=== PATIENT | male | born 1940 | race Caucasian/White ===

== ENCOUNTER 2021-08-14 12:43 | Observation (INO) | payer OTHER ==
--- OUTSIDE RECORDS SUMMARY | 2021-08-14 12:48 | XMS REPORT | Continuity of Care Document ---
:1940 Author Organization [facility] t Address [address] [place] [address] [address] [place] [address] Care Team Providers Name Role Phone Zac Jeffries DO Primary Care Physician Radha Attending Clinician Unavailable HAROLDO NOLASCO Attending Clinician Unavailable Samantha Dyer MD Attending Clinician DHARA Attending Clinician Unavailable MICHAEL Attending Clinician Unavailable Viridiana RUBY Attending Clinician Unavailable Samantha DYER Attending Clinician Unavailable Cholo CASTRO Attending Clinician Unavailable Viridiana Ruby DO Attending Clinician LISHA Attending Clinician Unavailable Andrei Attending Clinician Unavailable LAB90 Attending Clinician Unavailable LAB47 Attending Clinician Unavailable FAROOQ Attending Clinician Unavailable TERI Attending Clinician Unavailable Viridiana JONES Attending Clinician Unavailable Franklin CLARKE Attending Clinician JUAN Attending Clinician Unavailable SHARIF NULL Attending Clinician Unavailable Savana BURNHAM Attending Clinician Unavailable AZEB Attending Clinician Unavailable LUKE Attending Clinician Unavailable Shabbir Rock Admitting Clinician Unavailable Andrei Admitting Clinician Unavailable Radha Admitting Clinician Unavailable SHARIF NULL Admitting Clinician Unavailable Payers Payer Name Policy Type Policy Number Effective Date Ex[facility] Date [id number] 2021 00:00:00 MEDICARE PART A \T\ [id number] 2004 B 00:00:00 [facility] [id number] 2015 MEDICARE SUPPLEMENT 00:00:00 Problems Condition Condition Condition Status Onset Resolution Last Treating Co mments Source Name Details Category Date Date Treatment Clinician Date Encounter Encounter Disease Active Be welchy for for 03-26 Seybold long-term long-term 00:00: (current) (current) 00 use of use of insulin insulin Severe Severe Disease Active Radha obesity obesity 03-01 Seybold (BMI (BMI 00:00: 35.0-39.9) 35.0-39.9) 00 with with comorbidit comorbidit y y Controlled Controlled Disease Active K josé manuely type 2 type 2 02-26 Seybold diabetes diabetes 00:00: mellitus mellitus 00 with with diabetic diabetic nephropath nephropath y, with y, with long-term long-term current current use of use of insulin insulin History of History of Disease Active Genevieve josé manuelpetey fracture fracture 02-26 Seybol d of right of right 00:00: hip hip 00 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 02-26 Se ybold athy athy 00:00: associated associated 00 with type with type 2 diabetes 2 diabetes mellitus mellitus Intermitte Intermitte Disease Active K josé manuely nt atrial nt atrial 01-29 Seyb old fibrillati fibrillati 00:00: on (HCC) - on (HCC) - 00 Unchanged Unchanged COVID-19 COVID-19 Disease Active Metho di virus virus 8-04 st detected detected 00:00: Hospit a 00 l Pill Pill Disease Active Methodi esophagiti esophagiti 7 st s s 00:00: Hospita 00 l History of History of Disease Active M ethodi alcohol alcohol 01-17 st use use 00:00: Hospita 00 l History of History of Disease Active M ethodi colonic colonic 7 st polyps polyps 00:00: Hospita 00 l Pancreatic Pancreatic Disease Active Overview : Radha mass mass Miguelito Welchybold g of this note might be different from the original. Patient reports 2 masses in tail and head since 2007 Pacemaker Pacemaker Disease Active Overview: Radha Formattin Seybold g of this note might be different from the original. 2004 original 2014 new pacemaker On On Disease Active Radha continuous continuous Se ybold oral oral anticoagul anticoagul ation ation CKD CKD Disease Active Radha (chronic (chronic Seybol d kidney kidney disease) disease) CAD CAD Disease Active Overview: Radha (coronary (coronary Formattin S eybold artery artery g of this disease) disease) note might be different from the original. CABG x 3 at age 65 Bilateral Bilateral Disease Active Be sey kidney kidney Seybold masses masses Subtrochan Subtrochan Problem Active U nivers teric teric [place] Allergies, Adverse Reactions, Alerts Allergy Allergy Status Severity Reaction(s) Onset Inactive Treating Comm ents Source Name Type Date Date Clinician Penicill DA Active U [facility] ins 9-15 Clear 00:00: Hernández 00 [facility] cortison DA Active U [facility] e 915 Clear 00:00: Hernández [facility] Penicill DA Active U RASH [facility] ins 15 Clear 00:00: Hernández 00 [facility] cortison DA Active U RASH 0 [facility] e 9-15 Clear 00:00: Hernández [facility] Penicill DA Active U RASH 0 [facility] ins 9-13 Clear 00:00: Hernández 00 [facility] cortison DA Active U RASH 0 [facility] e 9-13 Clear 00:00: Hernández 00 [facility] Penicill DA Active U 0 [facility] ins 9-13 Clear 00:00: Hernández [facility] cortison DA Active U HCA e 9-13 Clear 00:00: Hernández 00 [facility] Cortison Propensi Active Rash Method i e ty to 7-21 st adverse 00:00: Hospita reaction 00 l s to drug Penicill Propensi Active Shortness Of Methodi ins ty to Breath 7-21 st adverse 00:00: Hospita reaction 00 l s to drug Hydrocor Propensi Active Swelling Germania ey tisone ty to 8-30 Seybold adverse 00:00: reaction 00 s No Known DA Active U 2014-06 [facility] Allergie 0-24 Clear s 00:00: Hernández 00 [facility] No Known DA Active U 2014-06 [facility] Allergie 0-24 Clear s 00:00: Hernández [facility] Penicill Propensi Active Rash 2010-06 Patient Harmony angelo in G ty to 0-19 states it Seybold Proc & adverse 00:00: was when Benzathi reaction 00 he was ne s young. Cortison Propensi Active Swelling Germania ey e ty to 11-24 Seybold adverse 00:00: reaction 00 s Penicill Propensi Active Shortness of Radha ins ty to Breath 11-24 Seybold adverse 00:00: reaction 00 s CORT[place] DRUG Active Swelling Univer s E INGREDI 11-24 ity of 00:00: [address] PENICILL DRUG Active Rash Univers IN G INGREDI 11-24 ity of 00:00: [address] Family History Family Member Diagnosis Comments Start Date Stop Date Source Natural brother Prostate cancer [facility] Natural sister Breast cancer [facility] Social History Social Habit Start Date Stop Date Quantity Comments Source History of Cigarette Smoker Radha lewis tobacco use Exposure to Not sure Radha hopper SARS-CoV-2 (event) Tobacco use and 2021-01-29 2021-01-29 Smokeless tobacco Ke akuaey Seybold exposure 00:00:00 00:00:00 non-user Alcohol intake 2020-06-16 2020-06-16 Ex-drinker Yarsani 00:00:00 00:00:00 (finding) Hospital Sex Assigned At [birth year] Radha ybjenna 00:00:00 00:00:00 Smoking Status Start Date Stop Date Source Ex-smoker 2020-01-18 00:00:00 2020-01-18 00:00:00 [facility] Medications Ordered Filled Start Stop Current Ordering Indication Dosage Frequency Signature Comments Components Source Medication Medication Date Date Medication? Clinician (SIG) Name Name Cholecalcif 2020-06 Yes Take by Be baker chata 2-13 mouth Seybold (Vitamin 10:53: D3) 25 MCG 19 oral Tablet Ascorbic 2020-06 Yes Take by Radha Acid 2-13 mouth Seybold (Vitamin C) 10:53: 500 MG oral 19 Capsule Zinc 50 MG 2020-06 Yes Take by Germania ey oral Tablet 2-13 mouth Seybold 10:53: 19 Magnesium 2020-06 Yes Take by Harmony y 500 MG oral 2-13 mouth Seybold Capsule 10:53: 19 Cyanocobala 2020-06 Yes Take by Be baker min 2-13 mouth Seybold (VITAMIN 10:53: B-12 OR) 19 ASPIRIN 81 2020-06 Yes Take by Germania ey OR 2-13 mouth Seybold 10:53: 19 Insulin 2020-06 Yes Inject Radha Glargine 2-13 into the Seybold 100 UNIT/ML 10:53: skin subcutaneou 19 s Solution Alendronate 2020-06 Yes [id number] 70mg Take 1 Radha Sodium 70 0-24 tablet (70 Seyb old MG oral 00:00: mg total) Tablet 00 by mouth every 7 days AMYLASE-LIP 2020-06- No Take by Nick champagne ASE-PROTEAS 0-18 10-18 mouth Seybol d E OR 14:15: 00:00 53 :00 Zinc 2020-06- No 50mg Take 50 mg Radha Gluconate 0-18 10-18 by mouth 2 Sey bold 50 MG oral 14:15: 00:00 times Tablet 12 :00 daily Metoprolol 2020-06- No 50mg Take 50 mg Radha Tartrate 50 0-18 10-18 by mouth 2 S eybold MG oral 14:15: 00:00 times Tablet 10 :00 daily WARFARIN 2020-06- No Take by Harmony y SODIUM OR 0-18 10-18 mouth Seybold 14:15: 00:00 03 :00 SPIRONOLACT 2020-06- No Take by Nick champagne ONE OR 0-18 10-18 mouth Seybold 14:14: 00:00 44 :00 Solifenacin 2020-06- No Take by Nick champagne Succinate 0-18 10-18 mouth Seybold 10 MG oral 14:14: 00:00 Tablet 38 :00 PRAVASTATIN 2020-06- No Take by Nick champagne SODIUM OR 0-18 10-18 mouth Seybold 14:14: 00:00 28 :00 Potassium 2020-06- No by other Be baker (POTASSIMIN 0-18 10-18 route Seybol d OR) 14:14: 00:00 16 :00 Memantine 2020-06- No 5mg Take 5 mg Nick champagne HCl 5 MG 0-18 10-18 by mouth 2 Seyb old oral Tablet 14:13: 00:00 times 55 :00 daily Magnesium 2020-06- No 1{tbl} Take 1 Be sey 250 MG oral 0-18 10-18 tablet by Se ybold Tablet 14:13: 00:00 mouth 39 :00 daily Lisinopril 2020-06- No Take by Be sey 20 MG oral 0-18 10-18 mouth Seybold Tablet 14:13: 00:00 29 :00 linaCLOtide 2020-06- No as needed Radha 290 MCG 0-18 10-18 Seybold oral 14:13: 00:00 Capsule 23 :00 Isosorbide 2020-06- No Take by Be sey Mononitrate 0-18 10-18 mouth Seybol d 10 MG oral 14:13: 00:00 Tablet 13 :00 HYDROMORPHO 2020-06- No Take by Nick champagne NE HCL OR 0-18 10-18 mouth Seybold 14:13: 00:00 04 :00 GLIMEPIRIDE 2020-06- No Take by Nick fatimaey OR 0-18 10-18 mouth Seybold 14:12: 00:00 45 :00 Glimepiride 2020-06- No Take by Nick fatimaey 2 MG oral 0-18 10-18 mouth Seybold Tablet 14:12: 00:00 39 :00 Furosemide 2020-06- No 20mg Q24H Take 20 mg Radha 20 MG oral 0-18 10-18 by mouth Seyb old Tablet 14:12: 00:00 daily as 23 :00 needed Doxycycline 2020-06- No 100mg Take 100 Radha Hyclate 50 0-18 10-18 mg by Seybold MG oral 14:12: 00:00 mouth 2 Tablet 16 :00 times daily Doxazosin 2020-06- No Take by Germania ey Mesylate 8 0-18 10-18 mouth Seybold MG oral 14:12: 00:00 Tablet 06 :00 Docusate 2020-06- No 250mg Take 250 Be sey Sodium 0-18 10-18 mg by Seybold (DSS) 100 14:11: 00:00 mouth MG oral 53 :00 daily Capsule Cyanocobala 2020-06- No by Harmony angelo min 1000 0-18 10-18 Parenteral Seyb old MCG/ML 14:11: 00:00 route injection 43 :00 Kit CHLORTHALID 2020-06- No Take by Nick MURILLO OR 0-18 10-18 mouth Seybold 14:11: 00:00 37 :00 CARVEDILOL 2020-06- No Take by Be baker OR 0-18 10-18 mouth Seybold 14:11: 00:00 30 :00 Aspirin 81 2020-06- No 81mg Take 81 mg Radha MG oral 0-18 10-18 by mouth Seybold Tablet 14:11: 00:00 daily Delayed 23 :00 Response Amlodipine 2020-06- No Take by Be baker Besylate 5 0-18 10-18 mouth Seybold MG oral 14:11: 00:00 Tablet 04 :00 Cholecalcif 2020-06 Yes Take by Be baker chata 0-18 mouth Seybold (Vitamin 14:10: D3) 25 MCG 37 oral Tablet Ascorbic 2020-06 Yes Take by Radha Acid 0-18 mouth Seybold (Vitamin C) 14:10: 500 MG oral 37 Capsule Zinc 50 MG 2020-06 Yes Take by Germania ey oral Tablet 0-18 mouth Seybold 14:10: 37 Magnesium 2020-06 Yes Take by Harmony angelo 500 MG oral 0-18 mouth Seybold Capsule 14:10: 37 Cyanocobala 2020-06 Yes Take by Be baker min 0-18 mouth Seybold (VITAMIN 14:10: B-12 OR) 37 ASPIRIN 81 2020-06 Yes Take by Germania ha OR 0-18 mouth Seybold 14:10: 37 Metformin 2020-06 Yes [id number] 500mg Take 1 Radha HCl 500 MG 0-18 tablet Seybold oral Tablet 00:00: (500 mg 00 total) by mouth 2 times daily (with meals) Metformin 2020-06 Yes [id number] 500mg Take 1 Radha HCl 500 MG 0-18 tablet Seybold oral Tablet 00:00: (500 mg 00 total) by mouth 2 times daily (with meals) Oxybutynin 2020-06 Yes 10mg Take 1 Kelse y Chloride 10 0-05 tablet (10 Se ybold MG oral 00:00: mg total) TABLET SR 00 by mouth 24 HR daily Oxybutynin 2020-06 Yes 10mg Take 1 Kelse y Chloride 10 0-05 tablet (10 Se ybold MG oral 00:00: mg total) TABLET SR 00 by mouth 24 HR daily Eliquis 5 Yes [id number] 5mg Take 5 mg Radha MG oral 9-15 by mouth 2 Seybol d Tablet 00:00: times 00 daily Eliquis 5 Yes [id number] 5mg Take 5 mg Radha MG oral 9-15 by mouth 2 Seybol d Tablet 00:00: times 00 daily Insulin Yes Inject Radha Glargine 9-02 into the Seybold 100 UNIT/ML 10:01: skin subcutaneou 53 s Solution Warfarin Yes 6mg Take 1 Radha Sodium 6 MG 9-02 tablet (6 Sey bold oral Tablet 00:00: mg total) 00 by mouth daily Warfarin Yes 6mg Take 1 Radha Sodium 6 MG 9-02 tablet (6 Sey bold oral Tablet 00:00: mg total) 00 by mouth daily Chlorthalid 0 2021- No 25mg Take 1 Be sey one 25 MG 9-02 09-03 tablet (25 Sey bold oral Tablet 00:00: 04:59 mg total) 00 :00 by mouth daily Chlorthalid 0 2021- No 25mg Take 1 Be sey one 25 MG 9-02 09-03 tablet (25 Sey bold oral Tablet 00:00: 04:59 mg total) 00 :00 by mouth daily Insulin Yes [id number] Takes up K elsey Detemir 8-30 to 25 Seybold (Levemir 00:00: units SQ FlexTouch) 00 nightly 100 UNIT/ML subcutaneou s Solution Pen-injecto r Insulin Pen Yes [id number] Takes Radha Needle 31G 8-30 insulin Seybol d X 5 MM does 00:00: once daily not apply 00 Misc B-D Yes Radha ULTRAFINE 8-30 Seybold III SHORT 00:00: PEN 31G X 8 00 MM does not apply Misc Insulin Yes [id number] Takes up K elsey Detemir 8-30 to 25 Seybold (Levemir 00:00: units SQ FlexTouch) 00 nightly 100 UNIT/ML subcutaneou s Solution Pen-injecto r Insulin Pen Yes [id number] Takes Radha Needle 31G 8-30 insulin Seybol d X 5 MM does 00:00: once daily not apply 00 Misc B-D Yes Radha ULTRAFINE 8-30 Seybold III SHORT 00:00: PEN 31G X 8 00 MM does not apply Misc Pravastatin Yes [id number] TAKE 1 Radha Sodium 40 8-04 TABLET(40 Seybo ld MG oral 00:00: MG) BY Tablet 00 MOUTH 1 TIME EACH DAY OneTouch Yes USE Radha Ultra in 01-31 DIRECTED 4 Seybo ld vitro Strip 00:00: TIMES A 00 DAY Pravastatin Yes [id number] TAKE 1 Radha Sodium 40 8-04 TABLET(40 Seybo ld MG oral 00:00: MG) BY Tablet 00 MOUTH 1 TIME EACH DAY OneTouch Yes USE Radha Ultra in 01-31 DIRECTED 4 Seybo ld vitro Strip 00:00: TIMES A 00 DAY Levothyroxi 2021- No [id number] 25ug Take 1 Radha ne Sodium 8- 08-05 tablet (25 Sey bold 25 MCG oral 00:00: 04:59 mcg total) Tablet 00 :00 by mouth daily Levothyroxi 2021- No [id number] 25ug Take 1 Radha ne Sodium 8-04 08-05 tablet (25 Sey bold 25 MCG oral 00:00: 04:59 mcg total) Tablet 00 :00 by mouth daily Metoprolol Yes TAKE 1 Kelse y Tartrate 25 6-09 TABLET(25 Sey bold MG oral 00:00: MG) BY Tablet 00 MOUTH TWICE DAILY Metoprolol Yes TAKE 1 Kelse y Tartrate 25 6-09 TABLET(25 Sey bold MG oral 00:00: MG) BY Tablet 00 MOUTH TWICE DAILY Hydromorpho Yes TAKE 1 Germania ey ne HCl 4 MG 5-26 TABLET BY Sey bold oral Tablet 00:00: MOUTH 00 TWICE DAILY IF NEEDED FOR MODERATE PAIN Hydromorpho Yes TAKE 1 Germania ey ne HCl 4 MG 5-26 TABLET BY Sey bold oral Tablet 00:00: MOUTH 00 TWICE DAILY IF NEEDED FOR MODERATE PAIN Hydromorpho 2020- No 4mg Q.5D Take 4 mg Radha ne HCl 4 MG 5-25 10-18 by mouth 2 S eybold oral Tablet 00:00: 00:00 times 00 :00 daily as needed Amitriptyli 2020- No Take 1-2 K elsey ne HCl 25 3- 10-18 tabs by Seybol d MG oral 00:00: 00:00 mouth Tablet 00 :00 nightly as needed for insomnia Gabapentin 2020- No 600mg Take 600 K elsey 300 MG oral 2- 10-18 mg by Seybol d Capsule 00:00: 00:00 mouth 2 00 :00 times daily pantoprazol 2019-06 Yes TAKE 1 Meth mariela e 2-30 TABLET(40 st (PROTONIX) 00:00: MG) BY Hospi ta 40 MG EC 00 MOUTH l tablet TWICE DAILY metFORMIN 2019-06 Yes 1000mg Q.5D Take 1,000 Methodi (GLUCOPHAGE 2-[address] ) 500 mg 15:18: mouth 2 Hospit a tablet 01 (two) l times a day with meals. warfarin 2019-06 Yes 2mg Take 2 mg Meth mariela (COUMADIN) 2-[address] 2 MG tablet 15:18: Hospit a 01 l warfarin 2019-06 Yes 6mg QD Take 6 mg Meth mariela (COUMADIN) 2-[address] 6 MG tablet 15:18: daily. Hosp juancarlos 01 l aspirin 2019-06 Yes 81mg QD Take 81 mg Meth mariela (ECOTRIN) 2-[address] 81 MG 15:18: daily. Hospita enteric 01 l coated tablet magnesium 2019-06 Yes 500mg QD Take 500 Met hodi gluconate 2-[address] (MAGONATE) 15:18: mouth Hospit a 500 mg 01 daily. l tablet tablet zinc 2019-06 Yes 220mg QD Take 220 Methodi sulfate 2-[address] (Zinc-220) 15:18: mouth Hospit a 220 (50) mg 01 daily. l capsule ascorbic 2019-06 Yes 500mg QD Take 500 Meth mariela acid, 2-[address] vitamin C, 15:18: mouth Hospit a (VITAMIN C) 01 daily. l 500 MG tablet memantine 2019-06 Yes 5mg Q.5D Take 5 mg Met hodi (NAMENDA) 5 2-[address] MG tablet 15:18: (two) Hospita 01 times a l day. docusate 2020- Yes 250mg QD Take 250 Meth mariela sodium 2-[address] (COLACE) 15:18: mouth Hospita 250 MG 01 daily. l capsule cholecalcif 2019-06 Yes 2000U QD Take 2,000 Methodi chata, 2-[address] vitamin D3, 15:18: mouth Hospi ta 50 mcg 01 daily. l (2,000 unit) capsule capsule metoprolol 2019-06 Yes 50mg Q.5D Take 50 mg M ethodi tartrate 2-[address] (LOPRESSOR) 15:18: (two) Hospi ta 50 mg 01 times a l tablet day. furosemide 2019-06 Yes 40mg Q.5D Take 40 mg M ethodi (LASIX) 40 2-[address] mg tablet 15:18: (two) Hospita 01 times a l day. cyanocobala 2020 Yes 1000ug QD Take 1,000 Methodi min 2-[address] (VITAMIN 15:18: mouth Hospita B-12) 1000 01 daily. l MCG tablet gabapentin 2019-06 Yes 600mg Q.5D Take 600 Me thodi (NEURONTIN) 2-[address] 600 mg 15:18: mouth 2 Hospita tablet 01 (two) l times a day as needed (pain or anxiety). insulin 2019-06 Yes 22U QD Inject 22 Metho di detemir 2-[address] U-100 15:18: under the Hospita (LEVEMIR) 01 skin l 100 unit/mL daily. injection Insulin Pen 2019- Yes USE Germania ey Needle (B-D 8-14 DIRECTED Seyb old ULTRAFINE 00:00: THREE III SHORT 00 TIMES PEN) 31G X DAILY. 8 MM does not apply Misc Insulin Pen 2020-0 Yes USE Germania ey Needle (B-D 8-14 DIRECTED Seyb old ULTRAFINE 00:00: THREE III SHORT 00 TIMES PEN) 31G X DAILY. 8 MM does not apply Misc hydromorPHO Yes 4mg Q.5D Take 4 mg M ethodi NE 4-[address] (DILAUDID) 00:00: (two) Hospit a 4 MG tablet 00 times a l day as needed. levothyroxi 2020- No 25ug Take 25 Me thodi ne 4-14 04-[address] (SYNTHROID) 00:00: 04:59 mouth. Hos flynn 25 mcg 00 :00 l tablet chlorthalid 2020- No 25mg Take 25 mg Methodi one 4-14 04-[address] (HYGROTEN) 00:00: 04:59 Hospit a 25 MG 00 :00 l tablet oxybutynin 2020- No 10mg Take 10 mg Methodi XL 9 04-[address] (DITROPAN-X 00:00: 04:59 Hospi ta L) 10 MG 24 00 :00 l hr tablet pravastatin Yes TAKE 1 Meth mariela (PRAVACHOL) 02-[address] 40 mg 00:00: MOUTH Hospita tablet 00 EVERY DAY l Immunizations Ordered Immunization Filled Immunization Date Status Commen ts Source Name Name Influenza Virus 2021-03-01 Completed Radha Welch ybold Vaccine, 00:00:00 Quadrivalent, High Dose, Age 65 And Up Influenza Virus 2021-03-01 Completed Radha Welch ybold Vaccine, 00:00:00 Quadrivalent, High Dose, Age 65 And Up Covid-19 Vaccine 2020-09-24 Completed Radha habold (Moderna), Mrna-lnp, 00:00:00 Patrice Protein, Pf, 100 Mcg/0.5ml,IM Covid-19 Vaccine 2020-09-24 Completed Radha Singh eybold (Moderna), Mrna-lnp, 00:00:00 Patrice Protein, Pf, 100 Mcg/0.5ml,IM Covid-19 Vaccine 2020-08-27 Completed Radha Singh eybold (Moderna), Mrna-lnp, 00:00:00 Patrice Protein, Pf, 100 Mcg/0.5ml,IM Covid-19 Vaccine 2020-08-27 Completed Radha Singh eybold (Moderna), Mrna-lnp, 00:00:00 Patrice Protein, Pf, 100 Mcg/0.5ml,IM Tdap- (Boostrix, 2017-02-26 Completed Radha habold Adacel) 00:00:00 Tdap- (Boostrix, 2017-02-26 Completed Radha Singh eybold Adacel) 00:00:00 Vital Signs Vital Name Observation Time Observation Value Comments Source Systolic blood pressure 2021-04-16 19:04:00 118 mm[Hg] Radha Seybold Diastolic blood 2021-04-16 19:04:00 62 mm[Hg] Kelse y Seybold pressure Heart rate 2021-04-16 19:04:00 72 /min Radha S eybold Respiratory rate 2021-04-16 19:04:00 18 /min Germania ey Seybold Body height 2021-04-16 19:04:00 162.6 cm Radha S lelandbold Body weight 2021-04-16 19:04:00 99.338 kg Radha S eybold BMI 2021-04-16 19:04:00 37.59 kg/m2 Radha S eybold Systolic blood pressure 2021-04-16 19:04:00 118 mm[Hg] Radha Seybold Diastolic blood 2021-04-16 19:04:00 62 mm[Hg] Kelse y Seybold pressure Heart rate 2021-04-16 19:04:00 72 /min Radha habold Respiratory rate 2021-04-16 19:04:00 18 /min Germania ey Seybold Body height 2021-04-16 19:04:00 162.6 cm Radha S eybold Body weight 2021-04-16 19:04:00 99.338 kg Radha S eybold BMI 2021-04-16 19:04:00 37.59 kg/m2 Radha S lelandbold Procedures Procedure Date / Time Performed Performing Clinician Sour e REAGENT STRIP/BLOOD 2021-04-16 19:17:00 Clara Ruby Radha Singh eybold GLUCOSE [id number] 2021-03-14 00:00:00 RASSA [facility] [id number] 2021-03-14 00:00:00 JOSE ALFREDOA JANES [facility] [id number] 2021-03-14 00:00:00 PHIQASIM MARRERO [facility] [U] XRAY FEMUR 2 [facility] 2019-07-14 00:00:00 [facility] [place] RIGHT [id number] [facility]icians [U] XRAY FEMUR 2 [facility] 2019-06-14 00:00:00 [facility] [place] RIGHT [id number] Physicians [U] XRAY FEMUR 2 [facility] 2018-12-18 00:00:00 [facility] [place] RIGHT [id number] Physicians [U] XRAY FEMUR 2 [facility] 2018-10-16 00:00:00 [facility] [place] RIGHT [id number] Physicians [U] XRAY FEMUR 2 [facility] 2018-09-08 00:00:00 [facility] [place] RIGHT [id number] Physicians [U] XRAY FEMUR 2 [facility] 2018-08-12 00:00:00 [facility] [place] RIGHT [id number] Physicians [U] XRAY FEMUR 2 [facility] 2018-07-22 00:00:00 [facility] [place] RIGHT [id number] Physicians Plan of Care Planned Activity Planned Date Details Comments Source Future Scheduled 2021-07-31 COVID-19 VACCINE (1) [facility] Test 15:00:35 [code = COVID-19 VACCINE (1)] Future Scheduled 2021-07-31 65+ [facility]OCOCCAL [facility] Test 15:00:35 VACCINE (1 of 4 - PCV13) [code = 65+ PNEUMOCOCCAL VACCINE (1 of 4 - PCV13)] Future Scheduled 2021-07-31 SHINGLES VACCINES (#1) [facility] Test 15:00:35 [code = SHINGLES VACCINES (#1)] Future Scheduled 2021-07-31 INFLUENZA VACCINE [facility] Test 15:00:35 [code = INFLUENZA VACCINE] Encounters Start End Encounter Admission Attending Care Care Encounter Source Date/Time Date/Time Type Type Clinicians Facility Department ID 2021-04-23 Inpatient Radha ALEXIS OUTD [id number] [facility] 11:30:00 Ricky [id number] [facility] 2021-03-13 Inpatient EL Radha ALEXIS OUTD [id number] [facility] 13:30:00 Ricky [id number] [facility] 2021-03-12 Inpatient ALEXIS Hansen OUTD [id number] [facility] 13:30:00 Ricky [id number] [facility] 2018-09-26 Inpatient U [id number] 10:43:00 [facility] 2021-08-14 2021-08-14 Outpatient RADHA NOLASCO [id number] Radha 00:00:00 00:00:00 ROSELYN Seybol d 2021-08-10 2021-08-10 Outpatient RADHA DELGADILLO [id number] Radha 00:00:00 00:00:00 Seybol cecilio 2021-07-10 2021-07-10 Outpatient RADHA NOLASCO [id number] Radha 00:00:00 00:00:00 ROSELYN Seybol cecilio 2021-06-11 2021-06-11 Office CLIF Dyer [id number] Radha 11:20:00 11:40:00 Visit [facility]13.13 Seybold DIAGNOSTI [id number] [facility] [id number] 2021-05-10 2021-05-10 Outpatient RADHA NOLASCO [id number] Radha 00:00:00 00:00:00 ROSELYN Seybol cecilio 2021-05-07 2021-05-07 Outpatient RADHA JULES [id number] Radha 15:15:00 15:15:00 TUNG Seybol cecilio 2021-05-07 2021-05-07 Outpatient RADHA NOLASCO [id number] Radha 00:00:00 00:00:00 ROSELYN Seybol d 2021-04-25 2021-04-25 Outpatient JANES HansenXU OUTD [id number] [facility] 05:31:00 05:31:00 Ricky 53 [facility] 2021-04-25 2021-04-25 Outpatient ALEXIS Hansen OUTD [id number] [facility] 05:31:00 05:31:00 Ricky [id number] [facility] 2021-04-24 2021-04-24 Outpatient MICHAEL RADHA DELGADILLO [id number] Radha 00:00:00 00:00:00 , RONIT Seybo ld 2021-04-22 2021-04-22 Outpatient CLARA RUBY RADHA DELGADILLO [id number] Radha 00:00:00 00:00:00 Seybol d 2021-04-20 2021-04-20 Outpatient DYERRADHA [id number] Radha 13:20:00 13:20:00 SHANAE Seybo ld 2021-04-20 2021-04-20 Outpatient MATTHEW RADHA DELGADILLO [id number] Radha 09:30:00 09:30:00 PATRICIA Seybol d 2021-04-18 2021-04-18 Outpatient GAURAVRADHA [id number] Radha 00:00:00 00:00:00 ROSELYN Seybol d 2021-04-17 2021-04-17 Outpatient RADHA DELGADILLO [id number] Radha 10:30:00 10:30:00 Seybol d 2021-04-16 2021-04-16 Office Clara Ruby 1.2.840.114 1 [id number] Radha 13:53:13 14:08:13 Visit M 350.1.13.13 Se ybold 1.2.7.2.686 [id number] 2021-04-16 2021-04-16 Office Clara Ruby 1.2.840.114 1 [id number] 13:53:13 14:08:13 Visit M 350.1.13.13 1.2.7.2.686 [id number] 2021-04-16 2021-04-16 Outpatient RADHA DELGADILLO [id number] Radha 10:30:00 10:30:00 Seybol d 2021-04-09 2021-04-09 Outpatient GORDO HUSAIN [id number] Radha 12:30:00 12:30:00 Seybol d 2021-04-09 2021-04-09 Outpatient TUNGCLARA RADHA DELGADILLO [id number] Radha 10:30:00 10:30:00 Seybol d 2021-04-09 2021-04-09 Outpatient RADHA DELGADILLO [id number] Radha 09:00:00 09:00:00 Seybol d 2021-04-03 2021-04-03 Outpatient CLARA RUBY RADHA DELGADILLO [id number] Radha 00:00:00 00:00:00 Seybol d 2021-03-29 2021-03-29 Outpatient CLARA RUBY RADHA DELGADILLO [id number] Radha 00:00:00 00:00:00 Seybol d 2021-03-22 2021-03-22 Outpatient Young_J MMG MMG [id number] [place] 11:55:00 11:55:00 [facility] 2021-03-14 2021-03-14 Inpatient AHMET Garcia HCACL INTE.02 [id number] [facility] 09:31:00 18:00:00 Ricky [id number] [facility] 2021-03-14 2021-03-14 Inpatient AHMET Garcia HCACL INTE.02 [id number] [facility] 09:31:00 18:00:00 Ricky 43 [facility] 2021-03-12 2021-03-12 Outpatient CLARA RUBY RADHA DELGADILLO [id number] Radha 00:00:00 00:00:00 Seybol d 2021-03-01 2021-03-01 Outpatient LAB90 RADHA DELGADILLO [id number] Radha 11:30:00 11:30:00 Seybol d 2021-03-01 2021-03-01 Outpatient RADHA NOLASCO [id number] Radha 10:00:00 10:00:00 ROSELYN Seybol d 2021-03-01 2021-03-01 Outpatient RADHA NOLASCO [id number] Radha 09:30:00 09:30:00 ROSELYN Seybol d 2021-03-01 2021-03-01 Outpatient RADHA NOLASCO [id number] Radha 00:00:00 00:00:00 ROSELYN Seybol d 2021-02-26 2021-02-26 Outpatient LAB47 RADHA DELGADILLO [id number] Radha 16:15:00 16:15:00 Seybol d 2021-02-26 2021-02-26 Outpatient CLARA RUBY RADHA DELGADILLO [id number] Radha 15:30:00 15:30:00 Seybol d 2021-02-21 2021-02-21 Outpatient RADHA TRIVEDI [id number] Radha 14:20:00 14:20:00 SERGEI Seybol d 2021-02-20 2021-02-20 Outpatient MORENA RADHA DELGADILLO [id number] Radha 10:45:00 10:45:00 VERÓNICA MCKINNEY 2021-01-31 2021-01-31 Outpatient RADHA NOLASCO [id number] Radha 00:00:00 00:00:00 ROSELYN Seybol d 2021-01-29 2021-01-29 Outpatient RADHA NOLASCO [id number] Radha 08:15:00 08:15:00 ROSELYN Seybol d 2020-09-24 2020-09-24 Outpatient [facility] [id number] Univers 13:30:00 13:30:00 [facility] 2020-08-27 2020-08-27 Outpatient Gaston JONES [facility] [id number] Univers 13:25:00 13:25:00 ALEN [facility] 2020-08-22 2020-08-22 Telemedici Shazia Reid 1.2.840.1 [id number] Methodi 11:35:38 11:48:[address] 3.430.2.7 Hospit a .3.039090 l .8 2020-02-29 2020-02-29 Outpatient R [facility] [id number] Univers 11:40:00 11:40:00 [id number] [facility] 2020-02-29 2020-02-29 Outpatient R JUAN [facility] [id number] Univers 11:40:00 11:40:00 ANN [facility] 2020-02-14 2020-02-14 Outpatient R [facility] [id number] Univers 14:00:00 14:00:00 [id number] [facility] 2020-02-14 2020-02-14 Outpatient R [facility] [id number] Univers 14:00:00 14:00:00 [facility] 2019-12-11 2019-12-12 Emergency E CHAKA, [facility] 0165 [facility] 19:02:00 12:42:00 CINDY 2019-10-29 2019-10-29 Outpatient Young_J MMG MMG [id number] [place] 04:02:00 04:02:00 0501 [facility] 2019-08-31 2019-08-31 Outpatient R GRAMM, [facility] [id number] Univers 09:00:00 09:00:00 VANIA [facility] 2019-08-30 2019-08-30 Outpatient R GRAMM, [facility] [id number] Univers 13:00:00 13:00:00 VANIA [id number] [facility] 2019-08-30 2019-08-30 Outpatient R GRAMM, [facility] [id number] Univers 13:00:00 13:00:00 VANIA [facility] 2019-07-22 2019-07-22 [facility] [id number] Univers 11:30:00 11:30:00 t; SHELL BOWIE, Trauma Lashaun M.D. [facility] 2019-06-17 2019-06-17 [facility] [id number] Univers 12:00:00 12:00:00 t; SHELL BOWIE Trauma Lashaun M.D. [facility] 2019-03-25 2019-03-25 AppointSEKOU Jain [facility] [id number] Univers 11:00:00 11:00:00 t; SHELL BOWIE it y [facility] STEPHEN, [facility]. [facility] 2018-12-24 2018-12-24 AppointSEKOU [facility] [id number] Univers 11:15:00 11:15:00 t; FOREST Trauma amarilisy ron BUTLER PA-C [facility] 2018-10-22 2018-10-22 Appointmen [facility] [id number] Univers 13:00:00 13:00:00 t; estefani GARG PA-C [place] FOREST Gisellglynn MCKENZIE ans 2018-09-10 2018-09-10 Appointtejinder LUKE [facility] Orthopedics [id number] Univers 13:00:00 13:00:00 t; estefani GARG PA-C [place] FORESTKevin PA-C [facility] 2018-09-10 2018-09-10 Appointtejinder [facility] [id number] Univers 11:45:00 11:45:00 t; estefani GARG PA-C [place] FORESTKevin PA-C [facility] 2018-08-13 2018-08-13 Appointmen AZEB [facility] Orthopedics [id number] Univers 10:15:00 10:15:00 t; SHELL BOWIE it y of [place], M.D. [place] M[facility]D. [facility] 2018-07-30 2018-07-30 Appointmen AZEB [facility] Orthopedics [id number] Univers 11:45:00 11:45:00 t; SHELL BOWIE it y of [place], M.D. [place] M.D. Physici ans 2018-07-02 2018-07-02 Appointtejinder [facility] [id number] Univers 09:00:00 09:00:00 t; estefani GARG PA-C [place] Kevin GARG PA-C [facility] Results Test Description Test Time Test Comments Results Result Comments Source GLUCOSE BEDSIDE 2021-04-25 08:58:00 Test Item Value Reference Range Interpretation Comme nts GLUCOSE BEDSIDE (test code = 151 MG/DL 70-110 H Performed by certified ballpoint pen assembly machine operator at [facility]) [facility] Novel Coronavirus 2018 [id number] 03:41:00 Test Item Value Reference Range Interpretation Comments Novel Coronavirus Negative Negative Positive r esults are 2019 Inhouse (test indicativ e of the presence code = COVNONPUI) ofSARS-CoV -2 RNA, clinical correlation wit h patient historyand othe r diagnostic info rmation is necessary to determinepatien t infection status. Positiv e results do not rule out bacterial infection or co -infection with other viru ses. Negative result s do not preclude SARS-C oV-2 infection andsh ould not be used as the paula e basis for patient managementdecis ions. Negative result s must be combined with otherclinical observations, p atient history, and epidemiological information . Detection of SARS-CoV-2 RNA may be affe cted bysample collec tion methods, storag e conditions, and /or stageof infection. Myrtle l RNA mutations, vacc inations, antiviraltherap eutics, antibiotics, chemotherapeuti c orimmunosuppres darnell drugs have not been e valuated for effectson d etection. Results are for the identification of SARS-CoV-2 RNA usingthe [employer] M2000 Sy stem under the FDA Emergen cy UseAuthorizatio n. The testing is perf ormed by personneltraine d in the procedures for the [employer] molecular diagnostic SARS-CoV-2 assa y in vitro. BASIC METABOLIC [id number] 12:40:00 Test Item Value Reference Range Interpretation Comments SODIUM (test code = NA) 138 mEq/L 134-147 N POTASSIUM (test code = 4.6 mEq/L 3.4-5.0 N K) CHLORIDE (test code = 105 mEq/L 100-108 N CL) CARBON DIOXIDE (test 26 mEq/l 21-33 N code = CO2) ANION GAP (test code = 11 0-20 N GAP) GLUCOSE (test code = 213 mg/dL 70-110 H GLU) BLOOD UREA NITROGEN 36 mg/dL 7-18 H (test code = BUN) GLOMERULAR FILTRATION 44.9 70-80 L Units of measure = RATE (test code = GFR) ml/mi n/1.73 m2 CREATININE (test code = 1.5 mg/dL 0.6-1.3 H CREAT) CALCIUM (test code = 9.2 mg/dL 8.0-10.5 N CA) PROTHROMBIN [id number] 12:38:00 Test Item Value Reference Range Interpretation Comments PROTHROMBIN TIME 19.4 SECONDS 9.3-12.9 H PATIENT (test code = PTP) INTERNATIONAL NORMAL 1.7 0.8-1.2 H TARGET RATIO (test code = INR BY IN DICATION INR) Indication INR1. Prophyl axis of venous thrombos is 2.0 - 3. 0 (orthopedic arnoldo dina), Prophylaxis of venous thrombos is (other than hig h-risk surgery), Sheeba tment of Deep Vein Thrombosis/Pulm onary Embolism, Preve ntion of systemic emb olism - Tissue heart va lves, Acute Myocardia l Infarction (to prevent systemic embo lism), Valvular heart disease, Atri al Fibrillation, Bileaflet mecha nical valve in aortic position.2. Mec hanical prosthetic valv es (high risk), 2.5 - 3.5 Presence of Lupus Anticoagu lant or Antiphospholi pid Antibodies, Pre vention of systemic e mbolism - Acute Myocard ial Infarction (t o prevent recurre nt infarct). CBC W/AUTO [id number] 12:37:00 Test Item Value Reference Range Interpretation Comments WHITE BLOOD CELL (test code = 7.6 x10 3/uL 4.5-11.0 N WBC) RED BLOOD CELL (test code = 3.98 x10 6/uL 4.00-5.60 L RBC) HEMOGLOBIN (test code = HGB) 12.6 g/dL 12.5-16.9 N HEMATOCRIT (test code = HCT) 38.3 % 37.5-50.7 N MEAN CELL VOLUME (test code = 96.2 fL 81.0-99.0 N MCV) MEAN CELL HGB (test code = MCH) 31.7 pg 27.0-33.0 N MEAN CELL HGB CONCETRATION 32.9 g/dL 33.0-37.0 L (test code = MCHC) RED CELL DISTRIBUTION WIDTH CV 12.1 % 11.5-14.5 N (test code = RDW) PLATELET COUNT (test code = 180 x10 3/uL 150-400 N PLT) NEUTROPHIL % (test code = NT%) 61.1 % 56.0-77.0 N LYMPHOCYTE % (test code = LY%) 31.1 % 14.0-32.0 N NEUTROPHIL # (test code = NT#) 4.65 x10 3/uL 2.0-7.6 N LYMPHOCYTE # (test code = LY#) 2.37 x10 3/uL 1.0-3.8 N MANUAL DIFF REQUIRED (test code NO = MDIFF) RED CELL DISTRIBUTION WIDTH SD 43.0 fL 37.0-54.0 N (test code = RDW-SD) MEAN PLATELET VOLUME (test code 9.6 fL 7.0-9.0 H = MPV) IMMATURE GRANULOCYTE % (test 0.5 % 0.0-2.0 N code = IG%) MONOCYTE % (test code = MO%) 5.7 % 4.8-9.0 N EOSINOPHIL % (test code = EO%) 1.2 % 0.3-3.7 N BASOPHIL % (test code = BA%) 0.4 % 0.0-2.0 N NUCLEATED RBC % (test code = 0.0 % 0-0 N NRBC%) IMMATURE GRANULOCYTE # (test 0.04 x10 3/uL 0.00-0.03 H code = IG#) MONOCYTE # (test code = MO#) 0.43 x10 3/uL 0.1-0.8 N EOSINOPHIL # (test code = EO#) 0.09 x10 3/uL 0.0-0.2 N BASOPHIL # (test code = BA#) 0.03 x10 3/uL 0.0-0.2 N NUCLEATED RBC # (test code = 0.00 x10 3/uL 0.0-0.1 N NRBC#) REAGENT STRIP/BLOOD [id number] 19:17:00 Test Item Value Reference Range Interpretation Comments BLOOD SUGAR (test code = 975773) 202 mg/dL 65-99 A Lab Interpretation (test code = Abnormal 89363-1) Radha SeyboldGLUCOSE [id number] 10:55:00 Test Item Value Reference Range Interpretation Comments GLUCOSE BEDSIDE (test 161 MG/DL 70-110 H Perfor med by certified code = GLUBED) ballpoint pen assembly machine operator at [facility] [id number] 09:52:00 Test Item Value Reference Range Interpretation Comments ACT-ISTAT (test code 268 SEC 74-137 H Perform ed by certified = ACTI) ballpoint pen assembly machine operator at [facility] [id number] 09:52:00 Test Item Value Reference Range Interpretation Comments ACT-ISTAT (test code 257 SEC 74-137 H Perform ed by certified = ACTI) ballpoint pen assembly machine operator at [facility] GLUCOSE [id number] 06:57:00 Test Item Value Reference Range Interpretation Comments GLUCOSE BEDSIDE (test 172 MG/DL 70-110 H Perfor med by certified code = GLUBED) ballpoint pen assembly machine operator at [facility] - XR CHEST 1 [id number] 00:00:00 [facility]E [facility]S : 1940 Sex: M FAX: Ching Salazar [phone] [place]: St: ADM FAX: Jt Vyas MD [phone] FAX: Ricky Orta MD [phone] Name: JANNETH,ZE Bahman [facility] : 1940 Age/S: 81/M [address] [place] [address] Unit #: [id number] Loc: [place] [address] Phys: Ching Salazar [facility] Acct: [id number] Dis Date: Status: ADM IN PHONE #: [phone] Exam Date: 03/14/20211131 FAX #: [phone] Reason: POST WATCHMAN EXAMS: CPT CODE: [id number] XR CHEST 1 V 94658 PROCEDURE INFORMATION: Exam: XR ChestExam date and time: 03/14/2021 10:17 AM Age: 81 years old Clinical indication: Condition or disease; Other: Watchman; Additional info: Post watchman TECHNIQUE: Imagingprotocol: XR of the chest. Views: 1 view. COMPARISON: DX XR CHEST 2 V :30 PM FINDINGS: Tubes, catheters and devices: A single lead left subclavian approach pacemaker projects in good position. Lungs: Central pulmonary vascular congestion is present. Pleural spaces: Unremarkable. No pleural effusion. No pneumothorax. 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 The heart size isat the upper limits of normal. Bones/joints: Moderate bilateral acromioclavicular joint osteoarthrosis. IMPRESSION: Borderline cardiomegaly with central pulmonary vascular congestion. at 8382 Reported and signed by: Cipriano Wheeler M.D. CC: Ching Salazar; Jt Rock MD; Ricky Garcia MD Technologist: Susan Hawk RT(R) Trnscrd Date/Time/By: 03/14/2021 (1721) : By: [email or web address] Orig Print D/T: S: 03/14/2021 (9491) PAGE 1 Signed Report Novel Coronavirus 2019 [id number] 04:34:00 Test Item Value Reference Range Interpretation Comments Novel Coronavirus Negative Negative Positive r esults are 2019 Inhouse (test indicativ e of the presence code = COVNONPUI) ofSARS-CoV -2 RNA, clinical correlation wit h patient historyand othe r diagnostic info rmation is necessary to determinepatien t infection status. Positiv e results do not rule out bacterial infection or co -infection with other viru ses. Negative result s do not preclude SARS-C oV-2 infection andsh ould not be used as the paula e basis for patient managementdecis ions. Negative result s must be combined with otherclinical observations, p atient history, and epidemiological information . Detection of SARS-CoV-2 RNA may be affe cted bysample collec tion methods, storag e conditions, and /or stageof infection. Myrtle l RNA mutations, vacc inations, antiviraltherap eutics, antibiotics, chemotherapeuti c orimmunosuppres darnell drugs have not been e valuated for effectson d etection. Results are for the identification of SARS-CoV-2 RNA usingthe [employer] M2000 Sy stem under the FDA Emergen cy UseAuthorizatio n. The testing is perf ormed by amber hopper in the procedures for the [employer] M2000 molecular diagnostic SARS-CoV-2 assa y in vitro. BASIC METABOLIC [id number] 15:12:00 Test Item Value Reference Range Interpretation Comments SODIUM (test code = NA) 139 mEq/L 134-147 N POTASSIUM (test code = 5.2 mEq/L 3.4-5.0 H K) CHLORIDE (test code = 106 mEq/L 100-108 N CL) CARBON DIOXIDE (test 30 mEq/l 21-33 N code = CO2) ANION GAP (test code = 8 0-20 N GAP) GLUCOSE (test code = 260 mg/dL 70-110 H GLU) BLOOD UREA NITROGEN 32 mg/dL 7-18 H (test code = BUN) GLOMERULAR FILTRATION 48.6 70-80 L Units of measure = RATE (test code = GFR) ml/mi n/1.73 m2 CREATININE (test code = 1.4 mg/dL 0.6-1.3 H CREAT) CALCIUM (test code = 9.0 mg/dL 8.0-10.5 N CA) [id number] 15:12:00 Test Item Value Reference Range Interpretation Comments PREALBUMIN (test code = PREALB) 17.0 mg/dL 16.0-40.0 N CBC W/AUTO [id number] 15:07:00 Test Item Value Reference Range Interpretation Comments WHITE BLOOD CELL (test code = 7.6 x10 3/uL 4.5-11.0 N WBC) RED BLOOD CELL (test code = 4.02 x10 6/uL 4.00-5.60 N RBC) HEMOGLOBIN (test code = HGB) 12.6 g/dL 12.5-16.9 N HEMATOCRIT (test code = HCT) 39.1 % 37.5-50.7 N MEAN CELL VOLUME (test code = 97.3 fL 81.0-99.0 N MCV) MEAN CELL HGB (test code = MCH) 31.3 pg 27.0-33.0 N MEAN CELL HGB CONCETRATION 32.2 g/dL 33.0-37.0 L (test code = MCHC) RED CELL DISTRIBUTION WIDTH CV 13.2 % 11.5-14.5 N (test code = RDW) RED CELL DISTRIBUTION WIDTH SD 47.8 fL 37.0-54.0 N (test code = RDW-SD) PLATELET COUNT (test code = 169 x10 3/uL 150-400 N PLT) MEAN PLATELET VOLUME (test code 9.8 fL 7.0-9.0 H = MPV) NEUTROPHIL % (test code = NT%) 52.6 % 56.0-77.0 L IMMATURE GRANULOCYTE % (test 0.4 % 0.0-2.0 N code = IG%) LYMPHOCYTE % (test code = LY%) 38.9 % 14.0-32.0 H MONOCYTE % (test code = MO%) 5.8 % 4.8-9.0 N EOSINOPHIL % (test code = EO%) 1.8 % 0.3-3.7 N BASOPHIL % (test code = BA%) 0.5 % 0.0-2.0 N NUCLEATED RBC % (test code = 0.0 % 0-0 N NRBC%) NEUTROPHIL # (test code = NT#) 3.99 x10 3/uL 2.0-7.6 N IMMATURE GRANULOCYTE # (test 0.03 x10 3/uL 0.00-0.03 N code = IG#) LYMPHOCYTE # (test code = LY#) 2.95 x10 3/uL 1.0-3.8 N MONOCYTE # (test code = MO#) 0.44 x10 3/uL 0.1-0.8 N EOSINOPHIL # (test code = EO#) 0.14 x10 3/uL 0.0-0.2 N BASOPHIL # (test code = BA#) 0.04 x10 3/uL 0.0-0.2 N NUCLEATED RBC # (test code = 0.00 x10 3/uL 0.0-0.1 N NRBC#) MANUAL DIFF REQUIRED (test code NO = MDIFF) PROTHROMBIN [id number] 15:07:00 Test Item Value Reference Range Interpretation Comments PROTHROMBIN TIME 12.9 SECONDS 9.3-12.9 N PATIENT (test code = PTP) INTERNATIONAL NORMAL 1.2 0.8-1.2 N TARGET RATIO (test code = INR BY IN DICATION INR) Indication INR1. Prophyl axis of venous thrombos is 2.0 - 3. 0 (orthopedic arnoldo dina), Prophylaxis of venous thrombos is (other than hig h-risk surgery), Sheeba tment of Deep Vein Thrombosis/Pulm onary Embolism, Preve ntion of systemic emb olism - Tissue heart va lves, Acute Myocardia l Infarction (to prevent systemic embo lism), Valvular heart disease, Atri al Fibrillation, Bileaflet mecha nical valve in aortic position.2. Mec hanical prosthetic valv es (high risk), 2.5 - 3.5 Presence of Lupus Anticoagu lant or Antiphospholi pid Antibodies, Pre vention of systemic e mbolism - Acute Myocard ial Infarction (t o prevent recurre nt infarct). CBC W/AUTO [id number] 14:53:00 Test Item Value Reference Range Interpretation Comments WHITE BLOOD CELL (test code = x10 3/uL 4.5-11.0 WBC) RED BLOOD CELL (test code = RBC) x10 6/uL 4.00-5.60 HEMOGLOBIN (test code = HGB) 12.6 g/dL 12.5-16.9 N HEMATOCRIT (test code = HCT) 39.1 % 37.5-50.7 N MEAN CELL VOLUME (test code = fL 81.0-99.0 MCV) MEAN CELL HGB (test code = MCH) pg 27.0-33.0 MEAN CELL HGB CONCETRATION (test g/dL 33.0-37.0 code = MCHC) RED CELL DISTRIBUTION WIDTH CV % 11.5-14.5 (test code = RDW) PLATELET COUNT (test code = PLT) 169 x10 3/uL 150-400 N NEUTROPHIL % (test code = NT%) % 56.0-77.0 LYMPHOCYTE % (test code = LY%) % 14.0-32.0 NEUTROPHIL # (test code = NT#) x10 3/uL 2.0-7.6 LYMPHOCYTE # (test code = LY#) x10 3/uL 1.0-3.8 MANUAL DIFF REQUIRED (test code = MDIFF) - XR CHEST 2 [id number] 00:00:00 [facility]S : 1940 Sex: M FAX: Jt Balderas MD [phone] [place]: St: PRE FAX: Ricky Marie MD [phone] Name: ZE LAGUNAS [facility] [place] : 1940 Age/S: 81/M [address] [place] [address] Unit #: [id number] Loc: [place] [address] Phys: Ricky Garcia MD Acct: [id number] Dis Date: Status: PRE [facility] PHONE#: [phone] Exam Date: 03/12/2021 1516 FAX #: [phone] Reason: PREOP EXAMS: CPT CODE: [id number] XR CHEST 2 V 76189 PROCEDURE INFORMATION: Exam: XR Chest Exam date and time: 03/12/2021 2:30 PM Age: 81 years old Clinical indication: Screening exam; Pre-operative exam; Cardiovascular screening; Additional info: Preop TECHNIQUE: Imaging protocol: XR of the chest. Views: 2 views. PA and Lateral COMPARISON: No relevant prior studies available. FINDINGS: Lungs: No consolidation. Minimal right basilar atelectasis or scarring.Pleural spaces: No pleural effusion. Heart/Mediastinum: The heart and vascular markings are within limits of normal. Left chest cardiac device is seen with single lead overlying the ventricle.There is atherosclerotic calcification of the aorta. Bones/joints: No gross acute findings. Prior sternotomy changes. IMPRESSION: No acute cardiopulmonary findings at 1527 Reported and signed by: Vaibhav Hines D.O. CC: Jt Rock MD; Ricky Garcia MD Technologist: RT Isabella(R) Trnscrd Date/Time/By: 03/12/2021 (1526) : By: [email or web address] Orig Print D/T: S: 03/12/2021 (1526) PAGE 1 Signed Report[U] XRAY FEMUR 2 VWS RIGHT [id number] 12:53:00Images acquired, not reported on this accession number.[facility][U] XRAY FEMUR 2 VWS RIGHT [id number] 10:12:00Images acquired, not reported on this accession number.[facility][U] XRAY FEMUR 2 VWS RIGHT [id number] 2018-07-30 11:44:00Images acquired, not reported on this accession number. [facility][U] XRAY FEMUR 2 VWS RIGHT [id number] 09:05:00Images acquired, not reported on this accession number.[facility]
[2021-08-14 14:18] LABS: Absolute Lymphocytes (CBC) 1.7 K/uL (0.7-4.9); Hematocrit 38.6 % (39.6-49.0); Lymphocytes % 22.2 % (15.3-44.8); MPV 7.5 fL (7.6-11.3); Protime INR 1.2; RBC Red Blood Cell Count 4.31 M/uL (4.33-5.43)
[2021-08-14 14:33] LABS: Albumin 3.5 g/dL (3.4-5.0); Bilirubin Direct 0.4 mg/dL (0-0.2); Magnesium 1.8 mg/dL (1.8-2.4); Potassium 4.6 mmol/L (3.5-5.1); Protein, Total 6.8 g/dL (6.4-8.2); Troponin High Sensitivity 18.4 pg/mL (<58.9)
[2021-08-14] MEDS ORDERED: NA CHLORIDE 0.9% 500 ML ONE (14:49)
--- NOTE | 2021-08-14 14:49 | RAD REPORT ---
EXAM DESCRIPTION: Priya Single View08/14/2021 2:39 pm CLINICAL HISTORY: Weakness/cardiomegaly COMPARISON: 2006 FINDINGS: The lungs appear clear of acute infiltrate. The heart is markedly enlarged. Postsurgical changes involve chest. Pacemaker lead in place IMPRESSION: No acute abnormalities displayed
[2021-08-14 15:00] LABS: Urine Blood 1+ (Negative); Urine Glucose Trace (Negative); Urine Protein Trace (Negative)
--- NOTE | 2021-08-14 15:01 | RAD REPORT ---
EXAM DESCRIPTION: CT - Head Brain Wo Cont - 08/14/2021 2:38 pm CLINICAL HISTORY: Alteration of awareness/confusion/weakness COMPARISON: 2007 TECHNIQUE: Computed axial tomography of the head was obtained. IV contrast was not requested. All CT scans are performed using dose optimization technique as appropriate and may include automated exposure control or mA/KV adjustment according to patient size. FINDINGS: An intracranial bleed is not seen . The ventricles are normal in caliber. No extra-axial fluid collection is noted. Mild low-density areas within periventricular, deep and subcortical white matter likely represent isc hemic changes secondary to small vessel disease. 6 millimeter low-density area left basal ganglia Fluid within the sinuses/ mastoids is not seen. IMPRESSION: 6 millimeter low-density area left basal ganglia probably lacunar infarct. It has more o f the appearance of being old than acute. No acute intracranial abnormality seen
--- NOTE | 2021-08-14 15:19 | ER ---
Nurse's Notes [facility] Name: Lex Henning Age: 81 yrs Sex: Male : 1940 Arrival Date: 08/14/2021 Time: 12:55 Bed 26 Private MD: Diagnosis: Altered mental status, unspecified Presentation: 08/14 13:00 Chief complaint: EMS states: weakness: pt got covid vaccine yesterday, woke up today eo2 with weakness and confusion today, temp 99.7, BG183, 250ml NS given enroute, pt aaox4. Coronavirus screen: Vaccine status: Patient reports receiving the 2nd dose of the covid vaccine. booster received 08/13/21 Client denies travel out of the [place] in the last 14 days. Ebola Screen: Patient negative for fever greater than or equal to 101.5 degrees Fahrenheit, and additional compatible Ebola Virus Disease symptoms Patient denies exposure to infectious person. Patient denies travel to an Ebola-affected area in the 21 days before illness onset. Initial Sepsis Screen: Does the patient meet any 2 criteria? No. Patient's initial sepsis screen is negative. Does the patient have a suspected source of infection? No. Patient's initial sepsis screen is negative. Risk Assessment: Do you want to hurt yourself or someone else? Patient reports no desire to harm self or others. Onset of symptoms is unknown. 13:00 Method Of Arrival: EMS: [facility] eo2 13:00 Acuity: YOVANNY 2 eo2 Triage Assessment: 13:30 General: Appears in no apparent distress. comfortable, Behavior is calm, cooperative. eo2 Pain: Complains of pain in b/l shoulder surgery. Historical: - Allergies: 13:05 PENICILLINS; eo2 13:05 Cortisone; eo2 - Home Meds: 13:05 metformin 500 mg Oral tab 1 tab 2 times per day for type 2 diabetes mellitus [Active]; eo2 oxybutynin chloride 10 mg Oral tr24 1 tab once daily [Active]; levothyroxine 25 mcg cap 1 cap once daily for hypothyroidism [Active]; metoprolol tartrate 25 mg Oral tab 1 tab 2 times per day [Active]; hydromorphone 4 mg Oral tab [Active]; chlorthalidone 25 mg Oral tab 1 tab once daily [Active]; pravastatin 40 mg oral tab 1 tab once daily [Active]; levemir insulin pen 20units daily [Active]; warfarin 6 mg Oral tab 1 tab once daily [Active]; - PMHx: 13:05 Hypertensive disorder; Hypothyroidism; Diabetes mellitus; Arthritis; Coronary eo2 atherosclerosis; - PSHx: 13:05 triple bypass; left ankle sx; cataract; Cholecystectomy; prostate sx; pacemaker; eo2 13:30 watchman; eo2 - Immunization history:: Adult Immunizations up to date, x3 doses. - Social history:: Smoking status: Patient/guardian denies using tobacco, the patient reports quitting approximately 40 years ago. Screenin:33 Abuse screen: Denies threats or abuse. Denies injuries from another. Nutritional eo2 screening: No deficits noted. Tuberculosis screening: No symptoms or risk factors identified. Fall Risk Ambulatory Aid- Crutches/Cane/Walker (15 pts). Mental Status- Oriented to own ability (0 pts). Assessment: 13:33 General: Appears in no apparent distress. comfortable, Behavior is calm, cooperative. eo2 Pain: Complains of pain in arthritis, b/l shoulder surgery. Neuro: No deficits noted. Level of Consciousness is awake, alert, obeys commands, Oriented to person, place, time, Reports weakness Denies dizziness, headache. Cardiovascular: Denies chest pain, shortness of breath, Capillary refill < 3 seconds. Respiratory: Airway is patent Trachea midline Respiratory effort is even, unlabored, Respiratory pattern is regular, symmetrical, Breath sounds are clear bilaterally. GI: Abdomen is round Bowel sounds present X 4 quads. Patient currently denies diarrhea, nausea, vomiting. 13:37 Reassessment: Pt's at bedside, states pt woke up confused this morning, "he didn't eo2 know who I was, I couldn't get him off the couch, he urinated on himself". 15:04 Musculoskeletal: Swelling present in b/l LE. eo2 18:35 Reassessment: 1st attempt to give report, receiving RN unable to take report at this eo2 time. Vital Signs: 13:00 BP 122 / 53; Pulse 63; Resp 17; Temp 99.7; Pulse Ox 97% ; Weight 96.16 kg; Height 5 ft. eo2 5 in. (165.10 cm); Pain 10/10; 14:45 BP 108 / 56; Pulse 59; Resp 17; Pulse Ox 98% ; Pain 8/10; eo2 15:00 BP 111 / 53; Pulse 60; Resp 21; Pulse Ox 98% ; eo2 16:00 BP 98 / 58; Pulse 60; Resp 20; Pulse Ox 98% ; eo2 17:00 BP 118 / 62; Pulse 68; Resp 15; Pulse Ox 97% ; eo2 18:00 BP 119 / 93; Pulse 60; Resp 20; Pulse Ox 98% ; Pain 6/10; eo2 13:00 Body Mass Index 35.28 (96.16 kg, 165.10 cm) eo2 Vitals: 14:45 Cardiac Rhythm Assessment Regular Sinus rhythm W/PAC's Paced. eo2 Prabhakar Coma Score: 14:45 Eye Response: spontaneous(4). Verbal Response: oriented(5). Motor Response: obeys eo2 commands(6). Total: 15. NIH Stroke Scale Scores: 13:33 NIHSS Score: 0 eo2 ED Course: 12:55 Patient arrived in ED. dh4 12:58 Shawanda Oro, BREN is Primary Nurse. eo2 12:58 Leandro Fernandez PA is PHCP. cp 12:58 Deven Adler MD is Attending Physician. cp 13:05 Triage completed. eo2 13:33 Patient has correct armband on for positive identification. Pulse ox on. NIBP on. Door eo2 closed. Noise minimized. Warm blanket given. 13:33 No provider procedures requiring assistance completed. Inserted saline lock: 20 gauge eo2 in right wrist, using aseptic technique. ,using aseptic technique. by EMS. 13:37 Arm band placed on. eo2 13:55 Inserted saline lock: 22 gauge in right antecubital area, using aseptic technique. eo2 Blood collected. 14:07 Troponin HS Sent. eo2 14:07 PT-INR Sent. eo2 14:07 NT PRO-BNP Sent. eo2 14:07 Magnesium Sent. eo2 14:07 LFT's Sent. eo2 14:07 CBC with Diff Sent. eo2 14:07 Basic Metabolic Panel Sent. eo2 14:07 Lactate Sent. eo2 14:07 COVID-19 SARS RT PCR (Document "Date of Onset" if Symptomatic) Sent. eo2 14:08 Blood Culture Adult (2) Sent. eo2 14:08 Procalcitonin Sent. eo2 14:08 Basic Metabolic Panel Sent. eo2 14:08 CBC with Automated Diff Sent. eo2 14:08 Liver (Hepatic) Function Sent. eo2 14:08 NT PRO-BNP Sent. eo2 14:08 Magnesium Sent. eo2 14:08 Protime (+INR) Sent. eo2 14:08 Urine Microscopic Only Sent. eo2 14:08 Troponin High Sensitivity Sent. eo2 14:38 CT Head Brain wo Cont In Process Unspecified. EDMS 14:38 XRAY Chest (1 view) In Process Unspecified. EDMS 15:09 Urine Microscopic Only Sent. eo2 15:17 Satya Aviles PA is Hospitalizing Provider. cp 18:45 Report given to Aminta CORREIA. eo2 18:45 Patient admitted, IV remains in place. eo2 Administered Medications: 14:49 CANCELLED (Physician Discretion): NS 0.9% 500 ml IV at calculated rate continuous; give cp 250 cc bolus, then 75 cc/hr Outcome: 15:18 Decision to Hospitalize by Provider. cp 18:45 Admitted to Med/surg family with patient, via stretcher. eo2 18:45 Condition: stable 18:45 Instructed on the need for admit. 18:51 Patient left the ED. eo2 NIH Stroke Scale - NIH Stroke Score Date: 08/14/2021 Time: 13:33 Total Score = 0 1a. Level of Consciousness (LOC) - 0(Alert) 1b. Level of Consciousness (LOC) (Month \\T\\ Age) - 0(Both) 1c. LOC Commands (Open \\T\\ Closes Eyes/Human Services Professional) - 0(Both) 2. Best Gaze (Lateral Gaze Paresis) - 0(Normal) 3. Visual Field Loss - 0(No visual loss) 4. Facial Palsy - 0(Normal) 5a. Left Arm: Motor (10-second hold) - 0(No drift) 5b. Right Arm: Motor (10-second hold) - 0(No drift) 6a. Left Leg: Motor (5-second hold - always test supine) - 0(No drift) 6b. Right Leg: Motor (5-second hold - always test supine) - 0(No drift) 7. Limb Ataxia (finger/nose \\T\\ heel/slade - test with eyes open) - 0(Absent) 8. Sensory Loss (pinprick arms/legs/face) - 0(Normal) 9. Best Language: Aphasia (description/naming/reading) - 0(No aphasia) 10. Dysarthria (speech clarity - read or repeat words) - 0(Normal) 11. Extinction and Inattention (visual/tactile/auditory/spatial/personal) - 0(No abnormality) Initials: eo2 Signatures: Dispatcher [employer] EDMS Leandro Fernandez PA PA cp Huhn, Donald [facility] Shawanda Oro RN RN eo2 Corrections: (The following items were deleted from the chart) 13:31 13:05 PSHx: cataract r. eye; eo2 eo2
--- NOTE | 2021-08-14 15:19 | EDPHYS ---
Physician Documentation [facility] Name: Lex Henning Age: 81 yrs Sex: Male : 1940 Arrival Date: 08/14/2021 Time: 12:55 Bed 26 Private MD: ED Physician Deven Adler HPI: 08/14 13:30 This 81 yrs old Male presents to ER via EMS with complaints of Altered Mental Status, cp Weakness. 13:30 The patient presents with decreased mental status. Onset: The symptoms/episode cp began/occurred this morning. Possible causes: unknown. 13:30 Associated signs and symptoms: Pertinent positives: weakness, reports patient had cp difficulty getting out of bed this morning, Pertinent negatives: chest pain, combativeness, headache, shortness of breath. Current symptoms: In the emergency department the patient's symptoms are unchanged from the initial presentation, despite EMS interventions. Patient's baseline: Neuro: alert and fully oriented, Motor: no deficits, Ambulation: walks without assistance, Speech: normal. Historical: - Allergies: 13:05 PENICILLINS; eo2 13:05 Cortisone; eo2 - Home Meds: 13:05 metformin 500 mg Oral tab 1 tab 2 times per day for type 2 diabetes mellitus [Active]; eo2 oxybutynin chloride 10 mg Oral tr24 1 tab once daily [Active]; levothyroxine 25 mcg cap 1 cap once daily for hypothyroidism [Active]; metoprolol tartrate 25 mg Oral tab 1 tab 2 times per day [Active]; hydromorphone 4 mg Oral tab [Active]; chlorthalidone 25 mg Oral tab 1 tab once daily [Active]; pravastatin 40 mg oral tab 1 tab once daily [Active]; levemir insulin pen 20units daily [Active]; warfarin 6 mg Oral tab 1 tab once daily [Active]; - PMHx: 13:05 Hypertensive disorder; Hypothyroidism; Diabetes mellitus; Arthritis; Coronary eo2 atherosclerosis; - PSHx: 13:05 triple bypass; left ankle sx; cataract; Cholecystectomy; prostate sx; pacemaker; eo2 13:30 watchman; eo2 - Immunization history:: Adult Immunizations up to date, x3 doses. - Social history:: Smoking status: Patient/guardian denies using tobacco, the patient reports quitting approximately 40 years ago. ROS: 13:35 Constitutional: Negative for body aches, chills, fever, poor PO intake. cp 13:35 Cardiovascular: Negative for chest pain. cp 13:35 Respiratory: Negative for cough, shortness of breath, wheezing. 13:35 Abdomen/GI: Negative for abdominal pain, vomiting, diarrhea, black/tarry stool, rectal cp bleeding. 13:35 ENT: Negative for ear pain, sore throat, difficulty swallowing, difficulty handling cp secretions. 13:35 Neuro: Positive for altered mental status, weakness, Negative for headache, loss of consciousness, syncope. 13:35 All other systems are negative. Exam: 13:40 Constitutional: The patient appears in no acute distress, alert, awake, cp non-diaphoretic, non-toxic, well developed, well nourished, overweight 13:40 Head/Face: Normocephalic, atraumatic. cp 13:40 Eyes: Periorbital structures: appear normal, Pupils: equal, round, and reactive to light and accomodation, Extraocular movements: intact throughout, Conjunctiva: normal, Sclera: no appreciated abnormality, Lids and lashes: appear normal, bilaterally. 13:40 ENT: External ear(s): are unremarkable, Nose: is normal, Mouth: Lips: moist, Oral mucosa: moist, Posterior pharynx: Airway: no evidence of obstruction, patent. 13:40 Neck: ROM/movement: is normal, is supple, without pain, no range of motions limitations, no meningismus. 13:40 Chest/axilla: Inspection: normal. 13:40 Cardiovascular: Rate: normal, Rhythm: irregular, Edema: ankle edema, that is mild, JVD: is not appreciated. 13:40 Respiratory: the patient does not display signs of respiratory distress, Respirations: normal, no use of accessory muscles, no retractions, labored breathing, is not present, Breath sounds: are clear throughout, no decreased breath sounds, no stridor, no wheezing. 13:40 Abdomen/GI: Inspection: abdomen appears normal, Palpation: abdomen is soft and non-tender, in all quadrants. 13:40 Neuro: Orientation: to person, situation, Mentation: able to follow commands, Motor: moves all fours, general weakness with focal deficits, Sensation: is normal. 14:15 ECG was reviewed by the Attending Physician. cp Vital Signs: 13:00 BP 122 / 53; Pulse 63; Resp 17; Temp 99.7; Pulse Ox 97% ; Weight 96.16 kg; Height 5 ft. eo2 5 in. (165.10 cm); Pain 10/10; 14:45 BP 108 / 56; Pulse 59; Resp 17; Pulse Ox 98% ; Pain 8/10; eo2 15:00 BP 111 / 53; Pulse 60; Resp 21; Pulse Ox 98% ; eo2 16:00 BP 98 / 58; Pulse 60; Resp 20; Pulse Ox 98% ; eo2 17:00 BP 118 / 62; Pulse 68; Resp 15; Pulse Ox 97% ; eo2 18:00 BP 119 / 93; Pulse 60; Resp 20; Pulse Ox 98% ; Pain 6/10; eo2 13:00 Body Mass Index 35.28 (96.16 kg, 165.10 cm) eo2 NIH Stroke Scale Scores: 13:33 NIHSS Score: 0 eo2 [place] Coma Score: 14:45 Eye Response: spontaneous(4). Verbal Response: oriented(5). Motor Response: obeys eo2 commands(6). Total: 15. MDM: 13:08 Patient medically screened. cp 13:40 Differential Diagnosis: CVA, electrolyte abnormality, alcohol intoxication, cp intracranial bleed, pneumonia, seizure, sepsis, TIA, UTI, volume depletion. 15:10 Data reviewed: vital signs, nurses notes, lab test result(s), EKG, radiologic studies, cp CT scan, plain films. 15:10 Test interpretation: by ED physician or midlevel provider: ECG, plain radiologic cp studies. 15:20 Physician consultation: Satya HEARN was called at 15:15, was contacted at 15:15, cp regarding admission, to the telemetry unit. patient's condition. 08/14 13:05 Order name: Basic Metabolic Panel cp 08/14 13:05 Order name: CBC with Diff cp 08/14 13:05 Order name: LFT's cp 08/14 13:05 Order name: Magnesium cp 08/14 13:05 Order name: NT PRO-BNP cp 08/14 13:05 Order name: PT-INR cp 08/14 13:05 Order name: Troponin HS cp 08/14 13:05 Order name: Urine Microscopic Only cp 08/14 13:05 Order name: Lactate; Complete Time: 14:48 cp 08/14 13:05 Order name: COVID-19 SARS RT PCR (Document "Date of Onset" if Symptomatic); Complete cp Time: 15:29 08/14 13:05 Order name: Procalcitonin; Complete Time: 15:05 08/14 13:05 Order name: Blood Culture Adult (2) 08/14 13:05 Order name: Basic Metabolic Panel EDID 08/14 14:48 Interpretation: Normal except: GLUC 192; BUN 32; CRE 1.68; GFR 39. 08/14 13:06 Order name: CBC with Automated Diff; Complete Time: 14:28 EDID 08/14 14:29 Interpretation: Normal except: RBC 4.31; HGB 12.9; HCT 38.6; PLT 151; RDW 15.5; MPV 7.5. 08/14 13:05 Order name: XRAY Chest (1 view); Complete Time: 15:05 08/14 15:05 Interpretation: Report reviewed. 08/14 13:05 Order name: EKG; Complete Time: 13:06 08/14 13:05 Order name: Cardiac monitoring; Complete Time: 14:07 08/14 13:05 Order name: EKG - Nurse/Tech; Complete Time: 14:10 08/14 13:05 Order name: IV Saline Lock; Complete Time: 14:07 08/14 13:05 Order name: Labs collected and sent; Complete Time: 14:07 08/14 13:05 Order name: O2 Per Protocol; Complete Time: 14:07 08/14 13:06 Order name: Liver (Hepatic) Function EDID 08/14 13:06 Order name: Magnesium EDID 08/14 13:06 Order name: NT PRO-BNP EDID 08/14 15:30 Interpretation: Abnormal: NT PRO-BNP 4899. 08/14 13:06 Order name: Protime (+INR); Complete Time: 14:28 EDID 08/14 13:06 Order name: Troponin High Sensitivity EDID 08/14 13:06 Order name: Urine Microscopic Only EDID 08/14 13:36 Order name: CT Head Brain wo Cont; Complete Time: 15:05 08/14 15:06 Interpretation: Report reviewed. 08/14 14:59 Order name: Urine Dipstick-Ancillary; Complete Time: 15:05 EDID 08/14 15:05 Interpretation: Normal except: UKET Trace; UBLD 1+; UPROT Trace. cp 08/14 13:05 Order name: O2 Sat Monitoring; Complete Time: 14:07 cp 08/14 13:05 Order name: Urine Dipstick-Ancillary (obtain specimen); Complete Time: 15:09 cp EC:15 Rate is 60 beats/min. Rhythm is irregular. QRS interval is normal. QT interval is cp normal. T waves are Inverted in leads II, III, aVF. Interpreted by me. Reviewed by me. Administered Medications: 14:49 CANCELLED (Physician Discretion): NS 0.9% 500 ml IV at calculated rate continuous; give cp 250 cc bolus, then 75 cc/hr Disposition Summary: 08/14/21 15:18 Hospitalization Ordered Hospitalization Status: Inpatient Admission cp Provider: Satya Aviles cp Location: Telemetry/MedSurg (Inpatient) cp Condition: Stable cp Problem: new cp Symptoms: are unchanged cp Bed/Room Type: Standard Room Assignment: 231(08/14/21 17:59) dw Diagnosis - Altered mental status, unspecified cp Forms: - Medication Reconciliation Form cp - SBAR form cp NIH Stroke Scale - NIH Stroke Score Date: 08/14/2021 Time: 13:33 Total Score = 0 1a. Level of Consciousness (LOC) - 0(Alert) 1b. Level of Consciousness (LOC) (Month \\T\\ Age) - 0(Both) 1c. LOC Commands (Open \\T\\ Closes Eyes/Manager Training) - 0(Both) 2. Best Gaze (Lateral Gaze Paresis) - 0(Normal) 3. Visual Field Loss - 0(No visual loss) 4. Facial Palsy - 0(Normal) 5a. Left Arm: Motor (10-second hold) - 0(No drift) 5b. Right Arm: Motor (10-second hold) - 0(No drift) 6a. Left Leg: Motor (5-second hold - always test supine) - 0(No drift) 6b. Right Leg: Motor (5-second hold - always test supine) - 0(No drift) 7. Limb Ataxia (finger/nose \\T\\ heel/slade - test with eyes open) - 0(Absent) 8. Sensory Loss (pinprick arms/legs/face) - 0(Normal) 9. Best Language: Aphasia (description/naming/reading) - 0(No aphasia) 10. Dysarthria (speech clarity - read or repeat words) - 0(Normal) 11. Extinction and Inattention (visual/tactile/auditory/spatial/personal) - 0(No abnormality) Initials: eo2 Addendum: 08/17/2021 07:02 Co-signature as Attending Physician, Deven Adler MD I agree with the assessment director and plan of care. Attestation: The patient's history, exam findings, diagnostics, and a summary of any interventions or procedures was reviewed in detail with Leandro HEARN. Signatures: Dispatcher [employer] Aisha Courtney RN RN dw Deven Adler MD MD rn Page, Corey, PA PA cp Owoade, Eunice RN RN eo2 Corrections: (The following items were deleted from the chart) 08/14 13:31 13:05 PSHx: cataract r. eye; eo2 eo2 14:49 14:28 NS 0.9% 500 ml IV at calculated rate continuous; give 250 cc bolus, then cp 75 cc/hr ordered. cp 17:59 15:18 cp dw
[2021-08-14 15:35] LABS: Urine Bacteria <20 /HPF (NONE SEEN)
[2021-08-14 15:36] LABS: Urine Mucus 2+ /HPF (NONE SEEN)
--- NOTE | 2021-08-14 16:14 | P.HP ---
Certification for Inpatient Patient admitted to: Observation With expected LOS: <2 Midnights Patient will require the following post-hospital care: None Practitioner: I am a practitioner with admitting privileges, knowledge of patient current condition, hospital course, and medical plan of care. Services: Services provided to patient in accordance with Admission requirements found in Title 42 Section 412.3 of the Code of Federal Regulations Patient History Date of Service: 08/14/21 Reason for admission: AMS, weakness History of Present Illness: Mr. 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 Yesterday, he received his booster vaccine. This morning, his says that he couldn't answer any questions, didn't know who anyone was, and was disoriented. He was weak, and could not get up by himself. She called EMS. Denies fever, nausea, vomiting, fall. At bedside, he is AOx4. No focal neurological deficits. He typically ambulates at home with a cane. T 99.7 BUN 32 Cr 1.68 GFR 39 Glu [address] HEAD IMPRESSION: 6 millimeter low-density area left basal ganglia probably lacunar infarct. It has more of the appearance of being old than acute. No acute intracranial abnormality seen CXR IMPRESSION: No acute abnormalities displayed Allergies cortisone Allergy (Verified 11/29/15 16:57) Rash Penicillins Allergy (Verified 11/29/15 16:57) Rash Home Medications: Chlorthalidone [Hygroton 25mg Tab] 25 mg PO DAILY 11/29/15 Cholecalciferol (Vitamin D3) [Vitamin D3] 2,000 unit PO DAILY 11/29/15 Cyanocobalamin [B12 Injection] 1,000 mcg IJ ONCE 11/29/15 Docusate Sodium [Stool Softener] 100 mg PO DAILY 11/29/15 Glimepiride [Amaryl] 4 mg PO DAILY 11/29/15 Hydromorphone HCl [Dilaudid] 4 mg PO DAILYPRN PRN 11/29/15 Insulin Glargine,Hum.rec.anlog [Lantus Solostar] 10 unit SQ DAILY WITH BREAKFAST 11/29/15 Magnesium Oxide [Magnesium] 250 mg PO BID 11/29/15 Metformin HCl [Metformin HCl ER] 1,000 mg PO BID 11/29/15 Metoprolol Tartrate [Lopressor] 25 mg PO BID 11/29/15 Pravastatin [Pravachol] 40 mg PO DAILY 11/29/15 Spironolactone [Aldactone] 25 mg PO DAILY 11/29/15 Warfarin Sodium [Coumadin] 8 mg PO DAILY 11/29/15 - Past Medical/Surgical History Diabetic: Yes -: CHF -: CAD -: atrial fibrillation -: DM -: HTN -: hypothyroidism -: BPH -: 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 -: pacemaker -: Watchman -: 3 vessel CABG -: cholecystectomy -: left ankle surgery -: cataract surgery Psychosocial/ Personal History: - Family History Sister -: Cancer - Social History Smoking Status: Former smoker Alcohol use: No CD- Drugs: No Caffeine use: Yes Place of Residence: Home Review of Systems 10-point ROS is otherwise unremarkable General: Weakness, As per HPI Eyes: Unremarkable ENT: Unremarkable Respiratory: Unremarkable Cardiovascular: Unremarkable Gastrointestinal: Unremarkable Genitourinary: Unremarkable Musculoskeletal: Unremarkable Integumentary: Unremarkable Neurological: Weakness, Confusion, As per HPI Lymphatics: Unremarkable Physical Examination - Physical Exam General: Alert, In no apparent distress, Oriented x3, Cooperative HEENT: Atraumatic, PERRLA, Mucous membr. moist/pink, EOMI, Sclerae nonicteric Neck: Supple, 2+ carotid pulse no bruit, No LAD, Without JVD or thyroid abnormality Respiratory: Clear to auscultation bilaterally, Normal air movement Cardiovascular: No edema, Normal pulses, Normal S1 S2, Irregular heart rate/rhythm Gastrointestinal: Normal bowel sounds, No tenderness Musculoskeletal: No tenderness Integumentary: No rashes Neurological: Normal speech, Normal strength at 5/5 x4 extr, Normal tone, Normal affect Lymphatics: No axilla or inguinal lymphadenopathy - Studies Laboratory Data (last 24 hrs) 08/14/21 13:55: PT 13.8 H, INR 1.20 08/14/21 13:55: WBC 7.80, Hgb 12.9 L, Hct 38.6 L, Plt Count 151 L 08/14/21 13:55: Sodium 138, Potassium 4.6, BUN 32 H, Creatinine 1.68 H, Glucose 192 H, Magnesium 1.8, Total Bilirubin 1.0, AST 10 L, ALT 18, Alkaline Phosphatase 91 Assessment and Plan - Problems (Diagnosis) (1) AMS (altered mental status) Current Visit: Yes Status: Resolved Qualifiers: Altered mental status type: unspecified Qualified Code(s): R41.82 - Altered mental status, unspecified (2) Weakness Current Visit: Yes Status: Acute (3) CAD (coronary artery disease) Current Visit: Yes Status: Chronic Qualifiers: Coronary Disease-Associated Artery/Lesion type: bypass graft [place] vs. transplanted heart: [place] heart Associated angina: without angina Qualified Code(s): I25.810 - Atherosclerosis of coronary artery bypass graft(s) without angina pectoris (4) CHF (congestive heart failure) Current Visit: Yes Status: Chronic Qualifiers: Heart failure type: unspecified Heart failure chronicity: chronic Qualified Code(s): I50.9 - Heart failure, unspecified (5) Atrial fibrillation Current Visit: Yes Status: Chronic Qualifiers: Atrial fibrillation type: unspecified Qualified Code(s): I48.91 - U nspecified atrial fibrillation (6) T2DM (type 2 diabetes mellitus) Current Visit: Yes Status: Chronic Qualifiers: Diabetes mellitus halfway insulin use: with long chain beamer use Diabetes mellitus complication status: with kidney complications Diabetes mellitus complication detail: with chronic kidney disease Chronic kidney disease stage: stage 3 (moderate) Chronic kidney disease stage 3 subtype: stage 3b (GFR 30- 44) Qualified Code(s): E11.22 - Type 2 diabetes mellitus with diabetic chronic kidney disease; N18.32 - Chronic kidney disease, stage 3b; Z79.4 - computer terminal operator (current) use of insulin (7) HTN (hypertension) Current Visit: Yes Status: Chronic Qualifiers: Hypertension type: primary hypertension Qualified Code(s): I10 - Essential (primary) hypertension (8) Hypothyroid Current Visit: Yes Status: Chronic Qualifiers: Hypothyroidism type: unspecified Qualified Code(s): E03.9 - Hypothyroidism, unspecified (9) BPH (benign prostatic hyperplasia) Current Visit: Yes Status: Chronic Qualifiers: Lower urinary tract symptom presence: symptoms absent Qualified Code(s): N40.0 - Benign prostatic hyperplasia without lower urinary tract symptoms (10) Primary malignant neuroendocrine tumor of pancreas Current Visit: Yes Status: Chronic - Plan daily aspirin and plavix, lipid panel pending UDS pending TSH/T4 pending monitor for fever, antipyretics as needed lasix PO daily physical therapy consulted sliding scale insulin and accuchecks reconcile and continue home medications DVT ppx Discharge Plan: Home Plan to discharge in: 24 Hours - Advance Directives Does patient have a Living Will: No Does patient have a Durable POA for Healthcare: No - Code Status/Comfort Care Code Status Assessed: Yes (full code ) Critical Care: No Time Spent Managing Pts Care (In Minutes): 70
[2021-08-14] MEDS ORDERED: ACETAMINOPHEN 500 MG TAB PO PRN (19:25)
[2021-08-14] MEDS ORDERED: ONDANSETRON 4 MG/2 ML VIAL IV PRN (19:25)
[2021-08-14] MEDS: INSULIN -REGULAR HUMAN 50 UNIT/0.5 ML ML SQ SCH ×2 (19:25→21:00)
[2021-08-14 20:29] VITALS: BMI 35.2
[2021-08-14 21:27] LABS: Thyroid Stimulating Hormone 1.25 uIU/mL (0.360-3.740)
[2021-08-15 00:49] LABS: Barbiturates NEGATIVE (NEGATIVE); Benzodiazepines NEGATIVE (NEGATIVE); Cocaine NEGATIVE (NEGATIVE); METHAMPHETAM NEGATIVE (NEGATIVE); Methadone NEGATIVE (NEGATIVE); Opiates NEGATIVE (NEGATIVE); Phencyclidine NEGATIVE (NEGATIVE); THC Cannibis NEGATIVE (NEGATIVE)
[2021-08-15 06:46] LABS: Absolute Lymphocytes (CBC) 2.1 K/uL (0.7-4.9); Hematocrit 38.3 % (39.6-49.0); Lymphocytes % 32.1 % (15.3-44.8); MPV 7.5 fL (7.6-11.3); RBC Red Blood Cell Count 4.31 M/uL (4.33-5.43)
[2021-08-15 07:01] LABS: Albumin 3.2 g/dL (3.4-5.0); Bilirubin Total 1.2 mg/dL (0.2-1.0); Magnesium 1.6 mg/dL (1.8-2.4); Phosphorus 2.6 mg/dL (2.5-4.9); Potassium 4.4 mmol/L (3.5-5.1); Protein, Total 6.4 g/dL (6.4-8.2)
[2021-08-15] MEDS: INSULIN -REGULAR HUMAN 50 UNIT/0.5 ML ML SQ SCH ×4 (08:30→21:00)
[2021-08-15] MEDS: ASPIRIN EC 81 MG TAB PO SCH (08:46)
[2021-08-15] MEDS: FUROSEMIDE 20 MG TABLET PO SCH (08:46)
[2021-08-15] MEDS: CLOPIDOGREL 75 MG TABLET PO SCH (08:46)
--- NOTE | 2021-08-15 11:16 | EKG ---
Test Date: 2021-08-14 Test Time: 14:07:19 Honing Machine Operator: JOE MEASUREMENT RESULTS: Intervals: Rate: 60 OR: QRSD: 76 QT: 410 QTc: 410 [place]: P: OR: QRS: 2 T: -86 INTERPRETIVE STATEMENTS: Demand pacemaker, interpretation is based on intrinsic rhythm Atrial fibrillation with premature ventricular or aberrantly conducted complexes ST & Marked T wave abnormality, consider anterolateral ischemia Abnormal ECG Compared to ECG 07/24/2012 09:30:04 No significant changes Electronically Signed On 08-15-21 11:13:48 CONTINGENTS SUPERVISOR by Hever Ellis
--- NOTE | 2021-08-15 13:14 | P.PN ---
Subjective Date of Service: 08/15/21 Chief Complaint: AMS, weakness Subjective: No new changes (Awake, feels much better, anxious to go home soon) Physical Examination - Vital Signs Temperature: 99.2 F Blood Pressure: 124/65 Pulse: 65 Respirations: 18 Pulse Ox (%): 97 - Studies Laboratory Data (last 24 hrs) 08/14/21 13:55: PT 13.8 H, INR 1.20 08/14/21 13:55: WBC 7.80, Hgb 12.9 L, Hct 38.6 L, Plt Count 151 L 08/14/21 13:55: Sodium 138, Potassium 4.6, BUN 32 H, Creatinine 1.68 H, Glucose 192 H, Magnesium 1.8, Total Bilirubin 1.0, AST 10 L, ALT 18, Alkaline Phosphatase 91 Assessment And Plan Physician Review: Patient Assessed, Agree with Above Assessment and Plan Physician Review Additional Text: 08/15/21 13:12 hysical Exam General: Alert, In no apparent distress, Oriented x3, Cooperative HEENT: Atraumatic, PERRLA, Mucous membr. moist/pink, EOMI, Sclerae nonicteric Neck: Supple, 2+ carotid pulse no bruit, No LAD, Without JVD or thyroid abnormality Respiratory: Clear to auscultation bilaterally, Normal air movement Cardiovascular: No edema, Normal pulses, Normal S1 S2, Irregular heart rate/rhythm Gastrointestinal: Normal bowel sounds, No tenderness Musculoskeletal: No tenderness Integumentary: No rashes Neurological: Normal speech, Normal strength at 5/5 x4 extr, Normal tone, Normal affect Lymphatics: No axilla or inguinal lymphadenopathy Assessment and Plan - Problems (Diagnosis) (1) AMS (altered mental status) Current Visit: Yes Status: Resolved Qualifiers: Altered mental status type: unspecified Qualified Code(s): R41.82 - Altered mental status, unspecified (2) Weakness Current Visit: Yes Status: Acute (3) CAD (coronary artery disease) Current Visit: Yes Status: Chronic Qualifiers: Coronary Disease-Associated Artery/Lesion type: bypass graft [place] vs. transplanted heart: [place] heart Associated angina: without angina Qualified Code(s): I25.810 - Atherosclerosis of coronary artery bypass graft(s) without angina pectoris (4) CHF (congestive heart failure) Current Visit: Yes Status: Chronic Qualifiers: Heart failure type: unspecified Heart failure chronicity: chronic Qualified Code(s): I50.9 - Heart failure, unspecified (5) Atrial fibrillation Current Visit: Yes Status: Chronic Qualifiers: Atrial fibrillation type: unspecified Qualified Code(s): I48.91 - Unspecified atrial fibrillation (6) T2DM (type 2 diabetes mellitus) Current Visit: Yes Status: Chronic Qualifiers: Diabetes mellitus prison insulin use: with prison use Diabetes mellitus complication status: with kidney complications Diabetes mellitus complication detail: with chronic kidney disease Chronic kidney disease stage: stage 3 (moderate) Chronic kidney disease stage 3 subtype: stage 3b (GFR 30- 44) Qualified Code(s): E11.22 - Type 2 diabetes mellitus with diabetic chronic kidney disease; N18.32 - Chronic kidney disease, stage 3b; Z79.4 - longterm (current) use of insulin (7) HTN (hypertension) Current Visit: Yes Status: Chronic Qualifiers: Hypertension type: primary hypertension Qualified Code(s): I10 - Essential (primary) hypertension (8) Hypothyroid Current Visit: Yes Status: Chronic Qualifiers: Hypothyroidism type: unspecified Qualified Code(s): E03.9 - Hypothyroidism, unspecified (9) BPH (benign prostatic hyperplasia) Current Visit: Yes Status: Chronic Qualifiers: Lower urinary tract symptom presence: symptoms absent Qualified Code(s): N40.0 - Benign prostatic hyperplasia without lower urinary tract symptoms (10) Primary malignant neuroendocrine tumor of pancreas Current Visit: Yes Status: Chronic - Plan -Mental status much improved May be due to medicationoxybutynin use We will obtain ammonia level to rule out hepatic encephalopathy although less likely Continue to hold off oxybutynin for now Continue CHF and A. fibstatus, status post watchman device Glucose levels controlled, continue insulin sliding scale with Accu-Cheks Possible DC in the a.m. 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
[2021-08-16 05:48] LABS: Absolute Lymphocytes (CBC) 2.5 K/uL (0.7-4.9); Hematocrit 38.4 % (39.6-49.0); Lymphocytes % 38.6 % (15.3-44.8); MPV 7.5 fL (7.6-11.3); RBC Red Blood Cell Count 4.31 M/uL (4.33-5.43)
[2021-08-16 05:58] LABS: Albumin 3.2 g/dL (3.4-5.0); Bilirubin Total 1.2 mg/dL (0.2-1.0); Potassium 4.5 mmol/L (3.5-5.1); Protein, Total 6.7 g/dL (6.4-8.2)
[2021-08-16 06:10] LABS: Magnesium 1.7 mg/dL (1.8-2.4)
[2021-08-16] MEDS: INSULIN -REGULAR HUMAN 50 UNIT/0.5 ML ML SQ SCH ×2 (07:30→11:30)
[2021-08-16 08:19] LABS: Blood Morphology Comment NOT SEEN (NOT SEEN); Platelet Estimate ADEQ
[2021-08-16 08:50] VITALS: O2SAT 94
[2021-08-16] MEDS: CLOPIDOGREL 75 MG TABLET PO SCH (09:26)
[2021-08-16] MEDS: FUROSEMIDE 20 MG TABLET PO SCH (09:26)
[2021-08-16] MEDS: ASPIRIN EC 81 MG TAB PO SCH (09:26)
--- NOTE | 2021-08-16 10:19 | P.CNS ---
Date of Consult: 08/16/21 Reason for Consult: VINAY/ CKD Requesting Physician: Margie Cid Chief Complaint: AMS, weakness History of Present Illness: Mr. 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 Yesterday, he received his booster vaccine. This morning, his says that he couldn't answer any questions, didn't know who anyone was, and was disoriented. He was weak, and could not get up by himself. She called EMS. Denies fever, nausea, vomiting, fall. At bedside, he is AOx4. No focal neurological deficits. He typically ambulates at home with a cane. 13:30 This 81 yrs old Male presents to ER via EMS with complaints of Altered Mental Status, cp Weakness. 13:30 The patient presents with decreased mental status. Onset: The symptoms/episode cp began/occurred this morning. Possible causes: unknown. 13:30 Associated signs and symptoms: Pertinent positives: weakness, reports patient had cp difficulty getting out of bed this morning, Pertinent negatives: chest pain, combativeness, headache, shortness of breath. Current symptoms: In the emergency department the patient's symptoms are unchanged from the initial presentation, despite EMS interventions. Patient's baseline: Neuro: alert and fully oriented, Motor: no deficits, Ambulation: walks without assistance, Speech: normal. Allergies cortisone Allergy (Verified 11/29/15 16:57) Rash Penicillins Allergy (Verified 11/29/15 16:57) Rash Home medications list reviewed: Yes Home Medications: Chlorthalidone [Hygroton 25mg Tab*] 25 mg PO DAILY 11/29/15 Cholecalciferol (Vitamin D3) [Vitamin D3] 2,000 unit PO DAILY 11/29/15 Cyanocobalamin [Vitamin B-12*] 1,000 mcg IJ ONCE 11/29/15 Docusate Sodium [Stool Softener] 100 mg PO DAILY 11/29/15 Glimepiride [Amaryl] 4 mg PO DAILY 11/29/15 Hydromorphone HCl [Dilaudid] 4 mg PO DAILYPRN PRN 11/29/15 Insulin Glargine,Hum.rec.anlog [Lantus Solostar] 10 unit SQ DAILY WITH BREAKFAST 11/29/15 Magnesium Oxide [Magnesium] 250 mg PO BID 11/29/15 Metformin HCl [Metformin ER Osmotic] 1,000 mg PO BID 11/29/15 Metoprolol Tartrate [Lopressor*] 25 mg PO BID 11/29/15 Pravastatin [Pravachol*] 40 mg PO DAILY 11/29/15 Spironolactone [Aldactone*] 25 mg PO DAILY 11/29/15 Warfarin Sodium [Coumadin*] 8 mg PO DAILY 11/29/15 - Past Medical/Surgical History Diabetic: Yes -: CHF -: CAD -: atrial fibrillation -: DM -: HTN -: hypothyroidism -: BPH -: 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 -: pacemaker -: Watchman -: 3 vessel CABG -: cholecystectomy -: left ankle surgery -: cataract surgery Psychosocial/ Personal History: - Family History Sister Medical History: Cancer - Social History Alcohol use: No CD- Drugs: No Caffeine use: Yes Place of Residence: Home Review of Systems 10-point ROS is otherwise unremarkable General: Weakness Respiratory: SOB with Excertion Neurological: Weakness Physical Examination Temp Pulse Resp BP Pulse Ox 97.4 F 79 18 122/59 L 95 08/16/21 04:00 08/16/21 04:00 08/16/21 04:00 08/16/21 09:26 08/16/21 04:00 General: In no apparent distress, Oriented x3, Cooperative HEENT: Atraumatic Neck: Supple Respiratory: Clear to auscultation bilaterally Cardiovascular: Regular rate/rhythm, Edema Gastrointestinal: Soft and benign, Non-distended Musculoskeletal: No clubbing, No contractures Integumentary: No rashes, No cyanosis Neurological: Normal speech Blood work reviewed in the chart. Imagings Data: EXAM DESCRIPTION: Priya Single View08/14/2021 2:39 pm CLINICAL HISTORY: Weakness/cardiomegaly COMPARISON: 2006 FINDINGS: The lungs appear clear of acute infiltrate. The heart is markedly enlarged. Postsurgical changes involve chest. Pacemaker lead in place IMPRESSION: No acute abnormalities displayed Conclusions/Impression: CKD III with proteinuria -No NSAIDs Hypomagnesemia -Replete mag HTN with CKD/ CHF -Continue Metoprolol Diastolic CHF, chronic -Continue furosemide -Restart spironolactone DM II with CKD -No sugar diet -RISS Mild malnutrition -Recommend protein supplementation Anemia in chronic illness Thrombocytopenia -Monitor H&H BPH with LUTS -Flomax prn Thank you kindly for the consultation.
--- NOTE | 2021-08-16 11:13 | P.DS ---
Admission Date: 08/14/21 Discharge Date: 08/16/21 Disposition: ROUTINE DISCHARGE Discharge Condition: FAIR Reason for Admission: AMS, weakness Brief History of Present Illness: History of Present Illness: Mr. 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 Yesterday, he received his booster vaccine. This morning, his says that he couldn't answer any questions, didn't know who anyone was, and was disoriented. He was weak, and could not get up by himself. She called EMS. Denies fever, nausea, vomiting, fall. At bedside, he is AOx4. No focal neurological deficits. He typically ambulates at home with a cane. T 99.7 BUN 32 Cr 1.68 GFR 39 Glu [address] HEAD IMPRESSION: 6 millimeter low-density area left basal ganglia probably lacunar infarct. It has more of the appearance of being old than acute. No acute intracranial abnormality seen CXR IMPRESSION: No acute abnormalities displayed Allergies cortisone Allergy (Verified 11/29/15 16:57) Rash Penicillins Allergy (Verified 11/29/15 16:57) Rash Home Medications: Chlorthalidone [Hygroton 25mg Tab] 25 mg PO DAILY 11/29/15 Cholecalciferol (Vitamin D3) [Vitamin D3] 2,000 unit PO DAILY 11/29/15 Cyanocobalamin [B12 Injection] 1,000 mcg IJ ONCE 11/29/15 Docusate Sodium [Stool Softener] 100 mg PO DAILY 11/29/15 Glimepiride [Amaryl] 4 mg PO DAILY 11/29/15 Hydromorphone HCl [Dilaudid] 4 mg PO DAILYPRN PRN 11/29/15 Insulin Glargine,Hum.rec.anlog [Lantus Solostar] 10 unit SQ DAILY WITH BREAKFAST 11/29/15 Magnesium Oxide [Magnesium] 250 mg PO BID 11/29/15 Metformin HCl [Metformin HCl ER] 1,000 mg PO BID 11/29/15 Metoprolol Tartrate [Lopressor] 25 mg PO BID 11/29/15 Pravastatin [Pravachol] 40 mg PO DAILY 11/29/15 Spironolactone [Aldactone] 25 mg PO DAILY 11/29/15 Warfarin Sodium [Coumadin] 8 mg PO DAILY 11/29/15 Hospital Course: Hospital course Patient was admitted for transient confusion which resolved by the time of arrival in the emergency room. He was admitted to observation. Patient mental status continued to improve. He remained conversant oriented x3. Ammonia level was normal. No evidence of UTI or any infection. He did not have any fever or hypotension. Patient selective stable. Acute transient confusion may be due to recent COVID booster dose. Possibility of oxybutynin causing neuro changes also considered although patient states she has been on the medication for years. Medication was not adjusted now but if recurrent episode might need reduce dose of oxybutynin. Patient is stable, eager to go home today and fully oriented. Will be discharged home in stable condition Physical Examination - Physical Exam General: Alert, In no apparent distress, Oriented x3, Cooperative HEENT: Atraumatic, PERRLA, Mucous membr. moist/pink, EOMI, Sclerae nonicteric Neck: Supple, 2+ carotid pulse no bruit, No LAD, Without JVD or thyroid abnormality Respiratory: Clear to auscultation bilaterally, Normal air movement Cardiovascular: No edema, Normal pulses, Normal S1 S2, Irregular heart rate/rhythm Gastrointestinal: Normal bowel sounds, No tenderness Musculoskeletal: No tenderness Integumentary: No rashes Neurological: Normal speech, Normal strength at 5/5 x4 extr, Normal tone, Normal affect Lymphatics: No axilla or inguinal lymphadenopathy Vital Signs/Physical Exam: Temp Pulse Resp BP Pulse Ox 97.4 F 79 18 122/59 L 95 08/16/21 04:00 08/16/21 04:00 08/16/21 04:00 08/16/21 09:26 08/16/21 04:00 Laboratory Data at Discharge: WBC 6.60 K/uL (4.3-10.9) 08/16/21 05:20 Hgb 12.8 g/dL (13.6-17.9) L 08/16/21 05:20 Hct 38.4 % (39.6-49.0) L 08/16/21 05:20 Plt Count 148 K/uL (152-406) L 08/16/21 05:20 PT 13.8 SECONDS (9.5-12.5) H 08/14/21 13:55 INR 1.20 08/14/21 13:55 Sodium 138 mmol/L (136-145) 08/16/21 05:20 Potassium 4.5 mmol/L (3.5-5.1) 08/16/21 05:20 BUN 28 mg/dL (7-18) H 08/16/21 05:20 Creatinine 1.45 mg/dL (0.55-1.3) H 08/16/21 05:20 Glucose 208 mg/dL (74-106) H 08/16/21 05:20 Phosphorus 2.6 mg/dL (2.5-4.9) 08/15/21 06:26 Magnesium 1.7 mg/dL (1.8-2.4) L 08/16/21 05:20 Total Bilirubin 1.2 mg/dL (0.2-1.0) H 08/16/21 05:20 AST 11 U/L (15-37) L 08/16/21 05:20 ALT 18 U/L (12-78) 08/16/21 05:20 Alkaline Phosphatase 87 U/L (45-117) 08/16/21 05:20 Triglycerides 94 mg/dL (<150) 08/15/21 06:26 Cholesterol 87 mg/dL (<200) 08/15/21 06:26 HDL Cholesterol 26 mg/dL (40-60) L 08/15/21 06:26 Cholesterol/HDL Ratio 3.35 08/15/21 06:26 Home Medications: Chlorthalidone [Hygroton 25mg Tab*] 25 mg PO DAILY 11/29/15 Cholecalciferol (Vitamin D3) [Vitamin D3] 2,000 unit PO DAILY 11/29/15 Cyanocobalamin [Vitamin B-12*] 1,000 mcg IJ ONCE 11/29/15 Docusate Sodium [Stool Softener] 100 mg PO DAILY 11/29/15 Glimepiride [Amaryl] 4 mg PO DAILY 11/29/15 Hydromorphone HCl [Dilaudid] 4 mg PO DAILYPRN PRN 11/29/15 Insulin Glargine,Hum.rec.anlog [Lantus Solostar] 10 unit SQ DAILY WITH BREAKFAST 11/29/15 Magnesium Oxide [Magnesium] 250 mg PO BID 11/29/15 Metformin HCl [Metformin ER Osmotic] 1,000 mg PO BID 11/29/15 Metoprolol Tartrate [Lopressor*] 25 mg PO BID 11/29/15 Pravastatin [Pravachol*] 40 mg PO DAILY 11/29/15 Spironolactone [Aldactone*] 25 mg PO DAILY 11/29/15 Warfarin Sodium [Coumadin*] 8 mg PO DAILY 11/29/15 Diet: Low sodium Activity: Ad solomon Followup: NONE,NONE [Primary Care Provider] - Time spent managing pt's care (in minutes): 35
[2021-08-16 13:05] VITALS: BP 141/72; TEMP 98.2
== END 2021-08-16 12:33 | disposition home or self-care (01) ==
LOC: ER 12:43 → ERHOLD 15:30 → 2ND 18:46
PROVIDERS: ADMIT Internal Medicine; ATTEND Internal Medicine
DX: R41.82 Altered mental status, unspecified (principal); R53.1 Weakness; I13.0 Hypertensive heart and chronic kidney disease with heart failure and stage 1 through stage 4 chronic kidney disease, or unspecified chronic kidney disease; I50.32 Chronic diastolic (congestive) heart failure; E11.22 Type 2 diabetes mellitus with diabetic chronic kidney disease; N18.32 Chronic kidney disease, stage 3b; D63.1 Anemia in chronic kidney disease; I25.10 Atherosclerotic heart disease of native coronary artery without angina pectoris; D69.6 Thrombocytopenia, unspecified; I48.91 Unspecified atrial fibrillation; E03.9 Hypothyroidism, unspecified; E83.42 Hypomagnesemia; N40.0 Benign prostatic hyperplasia without lower urinary tract symptoms; C7A.8 Other malignant neuroendocrine tumors; E44.1 Mild protein-calorie malnutrition; Z68.35 Body mass index [BMI] 35.0-35.9, adult; Z87.891 Personal history of nicotine dependence; Z95.0 Presence of cardiac pacemaker; Z95.1 Presence of aortocoronary bypass graft; Z79.01 Long term (current) use of anticoagulants; Z79.4 Long term (current) use of insulin; Z88.0 Allergy status to penicillin; Z88.8 Allergy status to other drugs, medicaments and biological substances; Z90.49 Acquired absence of other specified parts of digestive tract; Z20.822 Contact with and (suspected) exposure to COVID-19; Z80.9 Family history of malignant neoplasm, unspecified
CPT/HCPCS: 93005; 87040 ×2; 85025 ×3; 80048; 36415 ×2; 82140; 83735 ×3; 84100; 85610; 80061; 82947 ×7; 80076; 83605; 84443; 83036; 84484; 84439; 80053 ×2; 84145; 83880; 80307; 70450; 71045; 97161; 94760 ×4; 99285; U0003; J7040; G0378 ×3; 81003; 81015

== ENCOUNTER 2022-01-25 09:54 | Emergency (ER) | payer OTHER ==
[2022-01-25] MEDS ORDERED: NA CHLORIDE 0.9% 1,000 ML ONE (11:36)
--- NOTE | 2022-01-25 11:48 | RAD REPORT ---
EXAM DESCRIPTION: US - Extrem Venous W Compress Fernando - 01/25/2022 11:40 am CLINICAL HISTORY: Pain COMPARISON: UP LOW EXT ARTERIES MULTI dated 08/02/2010 TECHNIQUE: Real-time sonographic evaluation of the lower extremity deep venous systems was performed using color Doppler, grayscale, and compression. FINDINGS: Bilateral lower extremities. Normal compressibility, flow augmentation, phasic flow and spontaneous flow is identified in both the left and right lower extremity deep venous systems. No intraluminal filling defects seen. IMPRESSION: No DVT in either lower extremity.
[2022-01-25 12:10] LABS: Absolute Lymphocytes (CBC) 2.4 K/uL (0.7-4.9); Hematocrit 34.5 % (39.6-49.0); Lymphocytes % 28.7 % (15.3-44.8); MCV 92.4 fL (80-100); MPV 7.1 fL (7.6-11.3); RBC Red Blood Cell Count 3.73 M/uL (4.33-5.43)
[2022-01-25 12:22] LABS: Protime INR 1.11
[2022-01-25 12:42] LABS: Albumin 3.2 g/dL (3.4-5.0); Bilirubin Direct 0.2 mg/dL (0-0.2); Bilirubin Total 0.4 mg/dL (0.2-1.0); Protein, Total 6.7 g/dL (6.4-8.2); Troponin High Sensitivity 8.3 pg/mL (<58.9)
[2022-01-25 12:44] LABS: Urine Blood Negative (Negative); Urine Glucose Negative (Negative); Urine Protein Negative (Negative); Urine pH 8.5 (5.0-7.0)
--- NOTE | 2022-01-25 12:49 | RAD REPORT ---
EXAM DESCRIPTION: RAD - Chest Single View - 01/25/2022 12:43 pm CLINICAL HISTORY: COUGH Chest pain. COMPARISON: Chest Single View dated 08/14/2021; CHEST PA AND LAT 2 VIEW dated 08/24/2006 FINDINGS: Portable technique limits examination quality. The lungs are grossly clear. The heart is mildly enlarged in size. No displaced fractures.Sternotomy wires present. Single lead pacer device present. IMPRESSION: No acute intrathoracic process suspected.
[2022-01-25] MEDS ORDERED: CEFAZOLIN SODIUM 1 GM/VIAL ONE (13:19)
[2022-01-25] MEDS ORDERED: NA CHLORIDE 0.9% 50 ML ONE (13:20)
[2022-01-25] MEDS ORDERED: SMZ./TMP. 800/160 MG TABLET ONE (13:20)
[2022-01-25] MEDS ORDERED: CEPHALEXIN 250 MG CAP ONE (13:20)
[2022-01-25] MEDS ORDERED: VANCOMYCIN 1 GM/VIAL ONE (13:20)
[2022-01-25] MEDS ORDERED: FUROSEMIDE 40 MG/4 ML VIAL ONE (13:20)
[2022-01-25] MEDS ORDERED: NA CHLORIDE 0.9% 250 ML ONE (13:20)
--- NOTE | 2022-01-25 13:46 | EDPHYS ---
Physician Documentation [facility] Name: Lex Henning Age: 82 yrs Sex: Male : 1940 Arrival Date: 01/25/2022 Time: 10:11 Bed 23 Private MD: Leandro Harris HPI: 01/25 13:02 This 82 yrs old Male presents to ER via Ambulatory with complaints of Leg maegan Swelling, Feet Swelling. 13:02 The patient presents with decreased range of motion, pain, swelling. The complaints maegan affect the right leg and left leg. Context: The problem was sustained at an unknown site. Onset: The symptoms/episode began/occurred 2 day(s) ago. Modifying factors: The symptoms are alleviated by nothing. the symptoms are aggravated by nothing. Associated signs and symptoms: Pertinent positives: swelling, weakness, of the right leg and left slade. Treatment prior to arrival includes: no previous treatment. Severity of symptoms: At their worst the symptoms were mild, moderate, in the emergency department the symptoms are unchanged. The patient has not experienced similar symptoms in the past. Historical: - Allergies: 10:38 Cortisone; iw 10:38 PENICILLINS; iw - Home Meds: 10:38 chlorthalidone 25 mg Oral tab 1 tab once daily [Active]; hydromorphone 4 mg Oral tab iw [Active]; levemir insulin pen 20units daily [Active]; levothyroxine 25 mcg cap 1 cap once daily for Hypothyroidism [Active]; metformin 500 mg Oral tab 1 tab 2 times per day for Type 2 Diabetes Mellitus [Active]; metoprolol tartrate 25 mg Oral tab 1 tab 2 times per day [Active]; oxybutynin chloride 10 mg Oral tr24 1 tab once daily [Active]; pravastatin 40 mg Oral tab 1 tab once daily [Active]; warfarin 6 mg Oral tab 1 tab once daily [Active]; - PMHx: 10:38 Hypertensive disorder; Hypothyroidism; diabetes mellitus; coronary atherosclerosis; iw Arthritis; - PSHx: 10:38 cataract; Left ankle sx; Cholecystectomy; triple bypass; prostate sx; watchman; iw pacemaker; - Immunization history:: Client reports receiving the 2nd dose of the Covid vaccine. - Social history:: Smoking status: Patient denies any tobacco usage or history of. - Family history:: not pertinent. ROS: 13:02 Constitutional: Negative for fever, chills, and weight loss, Eyes: Negative for injury, maegan pain, redness, and discharge, ENT: Negative for injury, pain, and discharge, Neck: Negative for injury, pain, and swelling, Cardiovascular: Negative for chest pain, palpitations, and edema, Respiratory: Negative for shortness of breath, cough, wheezing, and pleuritic chest pain, Abdomen/GI: Negative for abdominal pain, nausea, vomiting, diarrhea, and constipation, Back: Negative for injury and pain, : Negative for injury, bleeding, discharge, and swelling, Skin: Negative for injury, rash, and discoloration, Neuro: Negative for headache, weakness, numbness, tingling, and seizure, Psych: Negative for depression, anxiety, suicide ideation, homicidal ideation, and hallucinations, Allergy/Immunology: Negative for hives, rash, and allergies, Endocrine: Negative for neck swelling, polydipsia, polyuria, polyphagia, and marked weight changes, Hematologic/Lymphatic: Negative for swollen nodes, abnormal bleeding, and unusual bruising. 13:02 MS/extremity: Positive for tenderness, of the right leg and left leg. Exam: 13:02 Constitutional: This is a well developed, well nourished patient who is awake, alert, maegan and in no acute distress. Head/Face: Normocephalic, atraumatic. Eyes: Pupils equal round and reactive to light, extra-ocular motions intact. Lids and lashes normal. Conjunctiva and sclera are non-icteric and not injected. Cornea within normal limits. Periorbital areas with no swelling, redness, or edema. ENT: Nares patent. No nasal discharge, no septal abnormalities noted. Tympanic membranes are normal and external auditory canals are clear. Oropharynx with no redness, swelling, or masses, exudates, or evidence of obstruction, uvula midline. Mucous membranes moist. Neck: Trachea midline, no thyromegaly or masses palpated, and no cervical lymphadenopathy. Supple, full range of motion without nuchal rigidity, or vertebral point tenderness. No Meningismus. Chest/axilla: Normal chest wall appearance and motion. Nontender with no deformity. No lesions are appreciated. Cardiovascular: Regular rate and rhythm with a normal S1 and S2. No gallops, murmurs, or rubs. Normal PMI, no JVD. No pulse deficits. Respiratory: Lungs have equal breath sounds bilaterally, clear to auscultation and percussion. No rales, rhonchi or wheezes noted. No increased work of breathing, no retractions or nasal flaring. Abdomen/GI: Soft, non-tender, with normal bowel sounds. No distension or tympany. No guarding or rebound. No evidence of tenderness throughout. Back: No spinal tenderness. No costovertebral tenderness. Full range of motion. Male : Normal genitalia with no discharge or lesions. Skin: Warm, dry with normal turgor. Normal color with no rashes, no lesions, and no evidence of cellulitis. Neuro: Awake and alert, GCS 15, oriented to person, place, time, and situation. Cranial nerves II-XII grossly intact. Motor strength 5/5 in all extremities. Sensory grossly intact. Cerebellar exam normal. Normal gait. Psych: Awake, alert, with orientation to person, place and time. Behavior, mood, and affect are within normal limits. 13:02 Musculoskeletal/extremity: Extremities: grossly normal except: noted in the left slade: swelling, tenderness, ROM: full active range of motion, full passive range of motion, Circulation is intact in all extremities. Sensation intact. Compartment Syndrome exam of affected extremity: is normal. DVT Exam: no pain, no tenderness, negative Homans' sign noted on exam, no appreciated bluish discoloration, no increased warmth, swelling, erythema. 13:51 ECG was reviewed by the Attending Physician. [facility] Vital Signs: 10:37 BP 118 / 57; Pulse 71; Resp 16; Temp 98.4; Pulse Ox 97% on R/A; Weight 86.18 kg; Height iw 5 ft. 4 in. (162.56 cm); 10:37 Body Mass Index 32.61 (86.18 kg, 162.56 cm) MDM: 11:05 Patient medically screened. [facility] 13:05 Differential diagnosis: contusion, tendonitis. Data reviewed: vital signs, nurses [facility] notes, lab test result(s), EKG, radiologic studies, CT scan, plain films. Data interpreted: playground monitor: rate is 71 beats/min, rhythm is regular, Pulse oximetry: on room air is 97 %. Test interpretation: by ED physician or midlevel provider: ECG, plain radiologic studies. Counseling: I had a detailed discussion with the patient and/or guardian regarding: the historical points, exam findings, and any diagnostic results supporting the discharge/admit diagnosis, lab results, radiology results, the need for outpatient follow up. 01/25 11:06 Order name: Basic Metabolic Panel; Complete Time: 12:52 [facility] 01/25 11:06 Order name: CBC with Diff; Complete Time: 12:52 [facility] 01/25 11:06 Order name: LFT's; Complete Time: 12:52 [facility] 01/25 11:06 Order name: Magnesium; Complete Time: 12:52 [facility] 01/25 11:06 Order name: NT PRO-BNP; Complete Time: 12:52 [facility] 01/25 11:06 Order name: PT-INR; Complete Time: 12:52 [facility] 01/25 11:06 Order name: Troponin HS; Complete Time: 12:52 [facility] 01/25 11:06 Order name: XRAY Chest (1 view); Complete Time: 12:52 [facility] 01/25 11:06 Order name: Lipase; Complete Time: 12:52 [facility] 01/25 11:06 Order name: US Extremity Venous W Compression Fernando; Complete Time: 12:52 [facility] 01/25 12:44 Order name: Urine Dipstick-Ancillary; Complete Time: 12:52 [facility] 01/25 11:06 Order name: EKG; Complete Time: 11:08 [facility] 01/25 11:06 Order name: Cardiac monitoring; Complete Time: 11:44 [facility] 01/25 11:06 Order name: EKG - Nurse/Tech; Complete Time: 11:44 [facility] 01/25 11:06 Order name: IV Saline Lock; Complete Time: 12:26 [facility] 01/25 11:06 Order name: Labs collected and sent; Complete Time: 12:26 [facility] 01/25 11:06 Order name: O2 Per Protocol; Complete Time: 11:44 [facility] 01/25 11:06 Order name: O2 Sat Monitoring; Complete Time: 11:44 [facility] 01/25 11:06 Order name: Urine Dipstick-Ancillary (obtain specimen); Complete Time: 12:31 [facility] EC:51 Rate is 62 beats/min. Rhythm is regular. QRS [place] is Normal. [place] interval is normal. QRS maegan interval is normal. QT interval is normal. No Q waves. T waves are Normal. No ST changes noted. Clinical impression: No evidence of ischemia. Interpreted by me. Reviewed by me. Administered Medications: 13:06 CANCELLED (Duplicate Order): Doxycycline 200 mg PO once maegan 13:45 Drug: vancoMYCIN 1 grams Route: IVPB; Infused Over: 2 hrs; Site: left antecubital; macdonald 13:45 Drug: Bactrim (trimethoprim-sulfamethoxazole) (160 mg-800 mg (DS) 1 tablet Route: PO; macdonald 13:45 Drug: Lasix (furosemide) 40 mg Route: IVP; Site: left antecubital; macdonald 13:45 Drug: ceFAZolin 1 grams Volume: 50 ml; Route: IVPB; Infused Over: 30 mins; Site: left macdonald antecubital; 13:45 Drug: KeFLEX (cephalexin) 500 mg Route: PO; macdonald Disposition Summary: 01/25/22 13:45 Discharge Ordered Location: Home maegan Problem: new maegan Symptoms: have improved maegan Condition: Stable maegan Diagnosis - Edema, unspecified maegan - Cellulitis and acute lymphangitis of other parts of limb - LEFT LOWER EXTREMITY maegan - Obesity, unspecified maegan - Type 2 diabetes mellitus with hyperglycemia maegan - Unspecified kidney failure maegan - Anemia, unspecified maegan Followup: maegan - With: Private Physician - When: 2 - 3 days - Reason: Recheck today's complaints, Continuance of care, Re-evaluation by your physician Followup: maegan - With: Hever Ellis MD - When: 2 - 3 days - Reason: Recheck today's complaints, Continuance of care, Re-evaluation by your physician Discharge Instructions: - Discharge Summary Sheet maegan - Anemia maegan - Type 2 Diabetes Mellitus, Diagnosis, Adult maegan - Edema maegan - Hyperglycemia maegan - Obesity, Adult maegan - Edema, [id number] maegan - Diabetes Mellitus and Nutrition, Adult maegan - Peripheral Edema maegan Forms: - Medication Reconciliation Form maegan - Thank You Letter maegan - Antibiotic Education maegan - Prescription Opioid Use maegan Prescriptions: - Cephalexin 500 mg Oral Capsule - take 1 capsule by ORAL route every 6 hours for 7 days; 28 capsule; Refills: 0, maegan Product Selection Permitted - Bactrim DS 800-160 mg Oral Tablet - take 1 tablet by ORAL route every 12 hours for 7 days; 14 tablet; Refills: 0, maegan Product Selection Permitted - Lasix 20 mg Oral Tablet - take 1 tablet by ORAL route every 12 hours; 6 tablet; Refills: 0, Product maegan Selection Permitted Signatures: Dispatcher [employer] EDMS Leandro Mendoza MD MD cha Williams, Irene, RN RN Chrissie Brito RN RN macdonald Corrections: (The following items were deleted from the chart) 11:18 10:58 Extremity Venous Uni Ltd+[email or web address] ordered. EDMS EDMS 13:06 12:56 Doxycycline 200 mg PO once ordered. maegan issa
--- NOTE | 2022-01-25 13:46 | ER ---
Nurse's Notes [facility] Name: Lex Henning Age: 82 yrs Sex: Male : 1940 Arrival Date: 01/25/2022 Time: 10:11 Bed 23 Private MD: Diagnosis: Edema, unspecified;Cellulitis and acute lymphangitis of other parts of limb-LEFT LOWER EXTREMITY;Obesity, unspecified;Type 2 diabetes mellitus with hyperglycemia;Unspecified kidney failure;Anemia, unspecified Presentation: 01/25 10:37 Chief complaint: Patient states: left leg is swollen abd red and hot to touch, from iw slade down to foot, X 4 days. Coronavirus screen: At this time, the client does not indicate any symptoms associated with coronavirus-19. Ebola Screen: Patient negative for fever greater than or equal to 101.5 degrees Fahrenheit, and additional compatible Ebola Virus Disease symptoms Patient denies exposure to infectious person. Patient denies travel to an Ebola-affected area in the 21 days before illness onset. No symptoms or risks identified at this time. Initial Sepsis Screen: Does the patient meet any 2 criteria? No. Patient's initial sepsis screen is negative. Does the patient have a suspected source of infection? No. Patient's initial sepsis screen is negative. Risk Assessment: Do you want to hurt yourself or someone else? Patient reports no desire to harm self or others. Onset of symptoms was January 21, 2022. 10:37 Method Of Arrival: Ambulatory iw 10:37 Acuity: YOVANNY 3 iw Triage Assessment: 12:34 General: Appears in no apparent distress. Behavior is calm, cooperative. macdonald Historical: - Allergies: 10:38 Cortisone; iw 10:38 PENICILLINS; iw - Home Meds: 10:38 chlorthalidone 25 mg Oral tab 1 tab once daily [Active]; hydromorphone 4 mg Oral tab iw [Active]; levemir insulin pen 20units daily [Active]; levothyroxine 25 mcg cap 1 cap once daily for Hypothyroidism [Active]; metformin 500 mg Oral tab 1 tab 2 times per day for Type 2 Diabetes Mellitus [Active]; metoprolol tartrate 25 mg Oral tab 1 tab 2 times per day [Active]; oxybutynin chloride 10 mg Oral tr24 1 tab once daily [Active]; pravastatin 40 mg Oral tab 1 tab once daily [Active]; warfarin 6 mg Oral tab 1 tab once daily [Active]; - PMHx: 10:38 Hypertensive disorder; Hypothyroidism; diabetes mellitus; coronary atherosclerosis; iw Arthritis; - PSHx: 10:38 cataract; Left ankle sx; Cholecystectomy; triple bypass; prostate sx; watchman; iw pacemaker; - Immunization history:: Client reports receiving the 2nd dose of the Covid vaccine. - Social history:: Smoking status: Patient denies any tobacco usage or history of. - Family history:: not pertinent. Screenin:32 Abuse screen: Denies threats or abuse. Denies injuries from another. Nutritional macdonald screening: No deficits noted. Tuberculosis screening: No symptoms or risk factors identified. Fall Risk None identified. Assessment: 12:32 Pain: Pain: Complains of pain in lower right leg and left leg. Musculoskeletal: macdonald Swelling present in lower right leg and left leg. Vital Signs: 10:37 BP 118 / 57; Pulse 71; Resp 16; Temp 98.4; Pulse Ox 97% on R/A; Weight 86.18 kg; Height iw 5 ft. 4 in. (162.56 cm); 10:37 Body Mass Index 32.61 (86.18 kg, 162.56 cm) iw ED Course: 10:11 Patient arrived in ED. rg4 10:38 Triage completed. iw 10:39 Arm band placed on. iw 11:05 Leandro Mendoza MD is Attending Physician. maegan 11:42 US Extremity Venous W Compression Fernando In Process Unspecified. EDMS 11:45 EKG done, by ED staff, reviewed by Leandro Mendoza MD. mb7 12:22 Chrissie Greenwood, RN is Primary Nurse. macdonald 12:32 Patient has correct armband on for positive identification. Call light in reach. macdonald 12:32 No provider procedures requiring assistance completed. Inserted saline lock: 20 gauge macdonald in left antecubital area, using aseptic technique. 12:44 XRAY Chest (1 view) In Process Unspecified. EDMS 13:42 Hever Ellis MD is Referral Physician. maegan 17:04 IV discontinued, intact, Pressure dressing applied. macdonald Administered Medications: 13:06 CANCELLED (Duplicate Order): Doxycycline 200 mg PO once maegan 13:45 Drug: vancoMYCIN 1 grams Route: IVPB; Infused Over: 2 hrs; Site: left antecubital; macdonald 13:45 Drug: Bactrim (trimethoprim-sulfamethoxazole) (160 mg-800 mg (DS) 1 tablet Route: PO; macdonald 13:45 Drug: Lasix (furosemide) 40 mg Route: IVP; Site: left antecubital; macdonald 13:45 Drug: ceFAZolin 1 grams Volume: 50 ml; Route: IVPB; Infused Over: 30 mins; Site: left macdonald antecubital; 13:45 Drug: KeFLEX (cephalexin) 500 mg Route: PO; macdonald Medication: 12:32 VIS not applicable for this client. macdonald Outcome: 13:45 Discharge ordered by . maegan 17:04 Discharged to home ambulatory. macdonald 17:04 Condition: good 17:04 Discharge instructions given to patient, family, Prescriptions given X 3. 17:04 Patient left the ED. macdonald Signatures: Dispatcher [employer] Leandro Nice MD MD cha Williams, Irene, Kelli Becerril RN rg4 Clarisa Escobar mb7 Chrissie Greenwood RN RN Corrections: (The following items were deleted from the chart) 10:39 10:37 Resp 16bpm; Pulse Ox 97% RA; Temp 98.4F; 86.18 kg; Height 5 ft. 4 in.; BMI: 32.6; iw isabela
--- NOTE | 2022-01-28 12:28 | EKG ---
Test Date: 2022-01-25 Test Time: 11:52:28 Bite Block Maker: MB MEASUREMENT RESULTS: Intervals: Rate: 62 MO: QRSD: 170 QT: 476 QTc: 483 [place]: P: MO: QRS: 266 T: 70 INTERPRETIVE STATEMENTS: Ventricular-paced rhythm Abnormal ECG Compared to ECG 08/14/2021 14:07:19 Atrial fibrillation no longer present Ventricular premature complex(es) no longer present T-wave abnormality no longer present Possible ischemia no longer present Electronically Signed On 01-28-22 12:25:01 CDT by Ricky Garcia
== END 2022-01-25 17:04 | disposition home or self-care (01) ==
LOC: ER 09:54
DX: L03.116 Cellulitis of left lower limb (principal); L03.126 Acute lymphangitis of left lower limb; E11.65 Type 2 diabetes mellitus with hyperglycemia; Z79.4 Long term (current) use of insulin; D64.9 Anemia, unspecified; N19 Unspecified kidney failure; E66.9 Obesity, unspecified; E03.9 Hypothyroidism, unspecified; I10 Essential (primary) hypertension; Z79.01 Long term (current) use of anticoagulants; Z95.1 Presence of aortocoronary bypass graft; Z88.0 Allergy status to penicillin; Z88.8 Allergy status to other drugs, medicaments and biological substances
CPT/HCPCS: 85025; 80048; 36415; 83735; 85610; 80076; 81003; 84484; 83690; 83880; 71045; 93970; J1940; J3370; J7050; J7030; J0690; 93005; 96374; 96375; 99284

== ENCOUNTER 2024-02-04 07:36 | Inpatient (IN) | payer MEDICARE ==
--- NOTE | 2024-02-04 08:47 | RAD REPORT ---
EXAM DESCRIPTION: RAD - Chest Single View - 02/04/2024 8:22 am CLINICAL HISTORY: sob, CHF Chest pain. COMPARISON: Chest Single View dated 01/25/2022; Chest Single View dated 08/14/2021; CHEST PA AND LAT 2 VIEW dated 08/24/2006 FINDINGS: Portable technique limits examination quality. The lungs are grossly clear. The heart is moderately enlarged with changes of a prior CABG. Sternotom y wires present. IMPRESSION: No acute intrathoracic process suspected.
[2024-02-04 08:51] LABS: Absolute Eosinophils 0.1 K/uL (0-0.5); Absolute Lymphocytes (CBC) 1.3 K/uL (0.7-4.9); Absolute Monocytes 0.3 K/uL (0.1-1.3); Absolute Neutrophil 4.9 K/uL (1.8-8.0); Basophils % 0.3 % (0-1.3); Eosinophils % 0.8 % (0-4.4); Hematocrit 35.7 % (39.6-49.0); Hemoglobin 11.6 g/dL (13.6-17.9); Lymphocytes % 19.2 % (15.3-44.8); MCH 29.1 pg (27.0-35.0); MCHC 32.5 g/dL (32.0-36.0); MCV 89.6 fL (80-100); MPV 7.8 fL (7.6-11.3); Monocytes % 4.7 % (3.3-12.3); Platelets 169 thou/uL (152-406); RBC Red Blood Cell Count 3.98 M/uL (4.33-5.43); Red Cell Distribution Width 14.3 % (12.1-15.2)
[2024-02-04 08:57] LABS: SARS-CoV-2 Antigen CONTROL BLUE LINE VIS/BG OK; SARS-CoV-2 Antigen Rapid Res Negative (Negative)
[2024-02-04 08:58] LABS: Albumin 3.6 g/dL (3.4-5.0); Anion Gap 9.2 mEq/L (5.0-15.0); Bilirubin Total 0.5 mg/dL (0.2-1.0); Globulin 3.6 g/dL (2.3-3.5); Potassium 4.2 mEq/L (3.5-5.1); Protein, Total 7.2 g/dL (6.4-8.2)
--- NOTE | 2024-02-04 10:07 | RAD REPORT ---
EXAM DESCRIPTION: CT - Abdomen Pelvis Wo Contrast - 02/04/2024 9:51 am CLINICAL HISTORY: Abdominal pain. diarrhea;Abd pain COMPARISON: Abdomen W/Wo Contrast dated 01/21/2023 TECHNIQUE: CT imaging of the abdomen and pelvis was performed without contrast. Solid organ, bowel a nd vascular assessment is limited due to lack of IV and oral contrast. All CT scans are performed using dose optimization technique as appropriate and may include automated exposure control or mA/KV adjustment according to patient size. FINDINGS: Several right lower lobe pulmonary nodules are noted, new since prior study dated 01/22/20 23. Noncontrast assessment of the liver shows no focal mass or biliary dilatation. Cholecystectomy clips. The pancreas and adrenal glands are unremarkable. Significant pancreatic atrophy is seen. Solid-appe aring mass lesion measuring 26 mm adjacent to the pancreatic head region noted, unchanged.4 cm benign appearing cysts lateral aspect of the left kidney. No renal stone or hydronephrosis. No bowel obstruction, free air, free fluid or abscess. Moderate volume liquid stool noted throughout the colon. The appendix is normal. Mild sigmoid diverticulosis coli without diverticulitis. Small asad ateral fat containing inguinal hernias. Proximal right femur hardware. IMPRESSION: No acute intra-abdominal or pelvic findings. The colon appears mildly distended and fill ed with liquid stool which could indicate a diarrheal state. Interval development of several right lower lobe pulmonary nodules. These are nonspecific and incompl etely assessed on this study. 26 mm solid-appearing masslike lesion adjacent to the pancreatic head region is stable since prior st udy. A limited non-contrast examination was performed as detailed.
--- NOTE | 2024-02-04 10:40 | P.HP ---
Certification for Inpatient Patient admitted to: Inpatient With expected LOS: <2 Midnights Practitioner: I am a practitioner with admitting privileges, knowledge of patient current condition, hospital course, and medical plan of care. Services: Services provided to patient in accordance with Admission requirements found in Title 42 Section 412.3 of the Code of Federal Regulations Patient History Date of Service: 02/05/24 Reason for admission: Heart failure History of Present Illness: 84-year-old male Arthritis; coronary atherosclerosis; atrial fibrillation, history of Watchman procedure, diabetes mellitus; Hypertensive disorder; Hypothyroidism presents to the emergency room with weakness, diarrhea. is at bedside is primary historian reports patient has diarrhea for the last 12 hours. She reports he has had associated generalized weakness. Bilateral lower extremity edema. The patient has bilateral lower extremity cellulitis. No reported nausea vomiting fever, chest pain, shortness of breath, plan to admit for acute on chronic heart failure, gastroenteritis, weakness. Cardiology to consult Blood pressure 145 / 70; Pulse 80; Resp 18; Temp 97.8; Pulse Ox 97% on R/A; Weight 106 kg; Height 5 ft. 8 in. ; chest x-ray The lungs are grossly clear. The heart is moderately enlarged with changes of a prior CABG. Sternotomy wires present. CT of the abdomen pelvis IMPRESSION: No acute intra-abdominal or pelvic findings. The colon appears mildly distended and filled with liquid stool which could indicate a diarrheal state.Interval development of several right lower lobe pulmonary nodules. These are nonspecific and incompletely assessed on this study.26 mm solid-appearing masslike lesion adjacent to the pancreatic head region is stable since prior study. Allergies cortisone Allergy (Verified 11/29/15 16:57) Rash Penicillins Allergy (Verified 11/29/15 16:57) Rash Home Medications: Hydromorphone HCl [Dilaudid] 4 mg PO DAILYPRN PRN 11/29/15 Magnesium Oxide [Magnesium] 500 mg PO DAILY 11/29/15 Metoprolol Tartrate [Lopressor*] 25 mg PO BID 11/29/15 Pravastatin [Pravachol*] 40 mg PO DAILY 11/29/15 Alendronate Sodium 70 mg PO Q7D 02/04/24 Aspirin Chewable [Aspirin Chewable*] 81 mg PO DAILY 02/04/24 Doxepin HCl [Sinequan*] 25 mg PO BEDTIME 02/04/24 Gabapentin 600 mg PO BID 02/04/24 Insulin Degludec [Tresiba] 34 units SQ DAILY 02/04/24 Torsemide 10 mg PO DAILY 02/04/24 - Past Medical/Surgical History Diabetic: Yes -: CHF -: CAD -: atrial fibrillation -: DM -: HTN -: hypothyroidism -: BPH -: 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 -: pacemaker -: Watchman -: 3 vessel CABG -: cholecystectomy -: left ankle surgery -: cataract surgery Psychosocial/ Personal History: - Family History Sister -: Cancer - Social History Alcohol use: No CD- Drugs: No Caffeine use: Yes Review of Systems Per HPI Physical Examination - Physical Exam General: Alert, In no apparent distress, Oriented x3 HEENT: Atraumatic, Normocephalic Neck: Supple Respiratory: Normal air movement, Diminished Cardiovascular: Normal pulses, Regular rate/rhythm, Edema (+2 lower extremity edema) Capillary refill: <2 Seconds Gastrointestinal: Normal bowel sounds, Soft and benign Musculoskeletal: No swelling, No contractures Integumentary: Other (Bilateral erythema, edema, lower extremity cellulitis) Neurological: Normal speech, Normal strength at 5/5 x4 extr - Studies Laboratory Data (last 24 hrs) 02/04/24 02/04/24 08:28 08:28 WBC 6.60 Hgb 11.6 L Hct 35.7 L Plt Count 169 Sodium 138 Potassium 4.2 BUN 32 H Creatinine 1.74 H Glucose 193 H Total Bilirubin 0.5 AST 17 ALT 22 Alkaline Phosphatase 109 Lipase 15 Microbiology Data (last 24 hrs): 02/04/24 08:28 Nasopharnyx Influenza Type A Antigen Screen - Final 02/04/24 08:28 Nasopharnyx Influenza Type B Antigen Screen - Final Assessment and Plan - Plan Assessment plan Acute on chronic heart failure Pulmonary edema Bilateral lower extremity edema Cardiomegaly History of atrial fibrillation History of Watchman procedure Cardiology consult, telemetry Echo ordered, Diuretics, p.o. metoprolol Blood pressure 145 / 70; Pulse 80; Resp 18; Temp 97.8; Pulse Ox 97% on R/A; Weight 106 kg; Height 5 ft. 8 in. ; chest x-ray The lungs are grossly clear. The heart is moderately enlarged with changes of a prior CABG. Sternotomy wires present. CT of the abdomen pelvis IMPRESSION: No acute intra-abdominal or pelvic findings. The colon appears mildly distended and filled with liquid stool which could indicate a diarrheal state.Interval development of several right lower lobe pulmonary nodules. These are nonspecific and incompletely assessed on this study.26 mm solid-appearing masslike lesion adjacent to the pancreatic head region is stable since prior study. Gastroenteritis Cipro, Flagyl, Stool culture Bilateral lower extremity cellulitis Diuretic Daily weight Bilateral lower extremity ultrasound rule out DVT arthritis coronary atherosclerosis diabetes mellitus. Hypertensive disorder Hypothyroidism Resume appropriate home meds Full code DVT SCDs Cardiac diet Disposition Home independent prior, use of rolling walker Discharge Plan: Home - Advance Directives Does patient have a Living Will: No Does patient have a Durable POA for Healthcare: No - Code Status/Comfort Care Code Status: Full Code Critical Care: No Time Spent Managing Pts Care (In Minutes): 55
--- NOTE | 2024-02-04 10:40 | ER ---
Nurse's Notes [facility] Name: Lex Henning Age: 84 yrs Sex: Male : 1940 Arrival Date: 02/04/2024 Time: 07:36 Bed 8 Private MD: Diagnosis: Infectious gastroenteritis and colitis, unspecified;Unspecified combined systolic (congestive) and diastolic (congestive) heart failure;Dehydration;Muscle weakness (generalized) Presentation: 02/03 08:02 Chief complaint: Spouse and/or significant other states: pt reports pt. started ld1 having episodes of diarrhea beginning at midnight and weakness; BLE with edema, redness and pain. Coronavirus screen: Vaccine status: Patient reports receiving the 2nd dose of the covid vaccine. Client denies travel out of the [place] in the last 14 days. diarrhea. Ebola Screen: No symptoms or risks identified at this time. Initial Sepsis Screen: Does the patient meet any 2 criteria? No. Patient's initial sepsis screen is negative. Does the patient have a suspected source of infection?. Risk Assessment:. Risk Assessment: Do you want to hurt yourself or someone else? Patient reports no desire to harm self or others. Onset of symptoms was February 04, 2024. Care prior to arrival: None. Activity prior to arrival: None. Mechanism of Injury: No Mechanism of Injury. 08:02 Method Of Arrival: EMS: [facility] ld1 08:02 Acuity: YOVANNY 3 ld1 Triage Assessment: 08:02 General: Appears in no apparent distress. Behavior is calm, cooperative. Pain: ld1 Complains of pain in right leg, right foot, left leg and left foot Pain does not radiate. Pain currently is 10 out of 10 on a pain scale. GI: No signs and/or symptoms were reported involving the gastrointestinal system. Abdomen is round Last BM was February 04, 2024. Historical: - Allergies: 08:14 Cortisone; ld1 08:14 PENICILLINS; ld1 - PMHx: 08:14 Arthritis; coronary atherosclerosis; diabetes mellitus; Hypertensive disorder; ld1 Hypothyroidism; - PSHx: 08:14 cataract; Cholecystectomy; Left ankle sx; pacemaker; prostate sx; triple bypass; ld1 watchman; - Immunization history:: Adult Immunizations up to date. - Infectious Disease History:: Denies. - Social history:: Smoking status: Patient/guardian denies using tobacco, the patient reports quitting approximately 40 years ago. - Family history:: not pertinent. - Hospitalizations: : No recent hospitalization is reported. Screenin:14 [facility] ED Fall Risk Assessment (Adult) History of falling in the last 3 months, ld1 including since admission No falls in past 3 months (0 pts) Confusion or Disorientation No (0 pts) Intoxicated or Sedated No (0 pts) Impaired Gait Yes (1 pt) Mobility Assist Device Used Yes (1 pt) Altered Elimination No (0 pt) Score/Fall Risk Level 0 - 2 = Low Risk Oriented to surroundings, Maintained a safe environment, Educated pt \T\ family on fall prevention, incl call for assistance when getting out of bed, Assessed \T\ reinforced patient's understanding of fall precautions, Provided non-skid footwear, Hourly rounding (assess needs \T\ fall precautionary measures) done, Used ambulatory aids as needed (educated on \T\ assisted with), Used gait belt as appropriate. Abuse screen: Denies threats or abuse. Denies injuries from another. 08:14 Nutritional screening: No deficits noted. Tuberculosis screening: No symptoms or risk ld1 factors identified. Assessment: 08:14 Reassessment: see triage assessment. ld1 09:30 Reassessment: Patient appears in no apparent distress at this time. No changes from ar6 previously documented assessment. 10:30 Reassessment: Patient and/or family updated on plan of care and expected duration. Pain ar6 level reassessed. 11:30 Reassessment: Patient appears in no apparent distress at this time. No changes from ar6 previously documented assessment. 12:30 Reassessment: Patient appears in no apparent distress at this time. No changes from ar6 previously documented assessment. Patient and/or family updated on plan of care and expected duration. Pain level reassessed. pericare provided; linens \T\ brief changed. Pain:. 13:07 Reassessment: Patient appears in no apparent distress at this time. No changes from ar6 previously documented assessment. linens \T\ gown changed; pericare provided; brief changed; pt leaving off the floor. Vital Signs: 08:02 BP 145 / 70; Pulse 80; Resp 18; Temp 97.8; Pulse Ox 97% on R/A; Weight 106 kg; Height 5 ld1 ft. 8 in. ; 09:11 BP 151 / 71; Pulse 79; Resp 18; Pulse Ox 97% ; ld1 11:37 BP 111 / 54; Pulse 70; Resp 16; Pulse Ox 97% on R/A; ld1 12:54 BP 104 / 53; Pulse 84; Resp 18; Pulse Ox 98% on R/A; ld1 08:02 Body Mass Index 35.53 (106.00 kg, 172.72 cm) ld1 ED Course: 07:51 Patient arrived in ED. bd 07:53 Deven Adler MD is Attending Physician. rn 08:02 Edith Dias, BREN is Primary Nurse. ld1 08:08 Triage completed. ld1 08:13 Arm band placed on right wrist. ld1 08:14 Patient has correct armband on for positive identification. Placed in gown. Bed in low ld1 position. Call light in reach. Side rails up X2. Adult w/ patient. bus driver/monitor on. Pulse ox on. NIBP on. Door closed. Noise minimized. Warm blanket given. Pillow given. Cleaned of incontinence. Linen changed. placed in gown, clean brief, male purewick in place to suction. 08:23 XRAY Chest (1 view) In Process Unspecified. EDMS 08:31 Inserted saline lock: 20 gauge in right antecubital area, using aseptic technique. kc6 Blood collected. Flushed with 10 mL NS. 08:40 Flu Sent. ld1 08:40 SARS RAPID Sent. ld1 09:28 Repositioned patient. Cleaned of incontinence. Linen changed. pt placed in a clean gown.kc6 09:53 Abdomen In Process Unspecified. EDMS 10:40 Chito Salazar MD is Hospitalizing Provider. rn 12:57 Cleaned of incontinence. Linen changed. pt provided clean, warm blankets. kc6 13:01 Warm blanket given. kc6 13:28 No provider procedures requiring assistance completed. Patient admitted, IV remains in kc6 place. Administered Medications: No medications were administered Medication: 13:28 VIS not applicable for this client. kc6 Outcome: 10:40 Decision to Hospitalize by Provider. rn 13:28 Admitted to Med/surg accompanied by tech, via stretcher, room 218, with chart, kc6 13:28 Condition: stable 13:28 Instructed on the need for admit, 13:28 Patient left the ED. kc6 Signatures: Dispatcher [employer] EDMS Vickie Andrews Roman, MD MD rn Edith Dias RN RN ld1 Kristy Linder RN RN kc6 Cinthia Badillo RN RN ar6
--- NOTE | 2024-02-04 10:40 | EDPHYS ---
Physician Documentation [facility] Name: Lex Henning Age: 84 yrs Sex: Male : 1940 Arrival Date: 02/04/2024 Time: 07:36 Bed 8 Private MD: ED Physician Deven Adler HPI: 02/03 10:29 This 84 yrs old Male presents to ER via EMS with complaints of Diarrhea. rn 10:29 The patient presents to the emergency department with diarrhea. Onset: The rn symptoms/episode began/occurred yesterday. Possible causes: unknown. The symptoms are aggravated by nothing. The symptoms are alleviated by nothing. Severity of symptoms: At their worst the symptoms were moderate in the emergency department the symptoms are unchanged. The patient has not experienced similar symptoms in the past. Spouse reports diarrhea that began last night. Nonbloody. No vomiting. Is having generalized weakness. Also reports has not been taking his Lasix as he is supposed to and shows increased swelling to lower extremities.. Historical: - Allergies: 08:14 Cortisone; ld1 08:14 PENICILLINS; ld1 - PMHx: 08:14 Arthritis; coronary atherosclerosis; diabetes mellitus; Hypertensive disorder; ld1 Hypothyroidism; - PSHx: 08:14 cataract; Cholecystectomy; Left ankle sx; pacemaker; prostate sx; triple bypass; ld1 watchman; - Immunization history:: Adult Immunizations up to date. - Infectious Disease History:: Denies. - Social history:: Smoking status: Patient/guardian denies using tobacco, the patient reports quitting approximately 40 years ago. - Family history:: not pertinent. - Hospitalizations: : No recent hospitalization is reported. ROS: 10:37 Constitutional: Negative for fever, chills, and weight loss, Cardiovascular: Negative rn for chest pain, palpitations, and edema, Respiratory: Positive for shortness of breath Abdomen/GI: Positive for diarrhea MS/Extremity: Positive for lower extremity edema Skin: Negative for injury, rash, and discoloration, Neuro: Positive for generalized weakness Exam: 10:37 Constitutional: This is a well developed, well nourished patient who is awake, alert, rn and in no acute distress. Head/Face: Normocephalic, atraumatic. Cardiovascular: Regular rate and rhythm. No pulse deficits. Respiratory: No increased work of breathing, no retractions or nasal flaring. Abdomen/GI: Soft, nontender, nondistended MS/ Extremity: Pulses equal, no cyanosis. Neurovascular intact. Full, normal range of motion. Equal circumference. Neuro: Awake and alert, GCS 15 Vital Signs: 08:02 BP 145 / 70; Pulse 80; Resp 18; Temp 97.8; Pulse Ox 97% on R/A; Weight 106 kg; Height 5 ld1 ft. 8 in. ; 09:11 BP 151 / 71; Pulse 79; Resp 18; Pulse Ox 97% ; ld1 11:37 BP 111 / 54; Pulse 70; Resp 16; Pulse Ox 97% on R/A; ld1 12:54 BP 104 / 53; Pulse 84; Resp 18; Pulse Ox 98% on R/A; ld1 08:02 Body Mass Index 35.53 (106.00 kg, 172.72 cm) ld1 MDM: 07:53 Patient medically screened. rn 10:39 Differential diagnosis: Nonspecific abd pain, gastritis, pancreatitis, appendicitis, rn diverticulitis, viral gastroenteritis, gastroenteritis. Data reviewed: vital signs, nurses notes, lab test result(s), EKG, radiologic studies, CT scan, ultrasound, and as a result, I will admit patient. Consideration of Admission/Observation Patient was admitted/placed on observation. Escalation of care including admission/observation considered. Care significantly affected by the following chronic conditions: Diabetes, Hypertension. Counseling: I had a detailed discussion with the patient and/or guardian regarding the historical points, exam findings, and any diagnostic results supporting the discharge/admit diagnosis, lab results, radiology results, the need for further work-up and treatment in the hospital. Response to treatment: the patient's symptoms have mildly improved after treatment, and as a result, I will admit patient. 02/03 08:14 Order name: CBC with Diff; Complete Time: :00 rn 02/03 08:14 Order name: CMP; Complete Time: :00 rn 02/03 08:14 Order name: Lipase; Complete Time: 09:00 rn 02/03 08:14 Order name: BNP; Complete Time: 09:00 rn 02/03 08:14 Order name: SARS RAPID; Complete Time: 09:00 rn 02/03 08:14 Order name: Flu; Complete Time: : rn 02/03 10:57 Order name: Stool Culture rn 02/03 08:14 Order name: XRAY Chest (1 view); Complete Time: 08:56 rn 02/03 09:11 Order name: Abdomen ; Complete Time: 10:25 EDMS 02/03 10:59 Order name: Echo with Doppler EDMS 02/03 10:59 Order name: Echo with Doppler EDMS 02/03 10:59 Order name: CONS Physician Consult EDMS 02/03 08:14 Order name: IV Saline Lock; Complete Time: 08:31 rn 02/03 08:14 Order name: Labs collected and sent; Complete Time: 08:31 rn 02/03 08:14 Order name: EKG - Nurse/Tech; Complete Time: 08:31 rn Administered Medications: No medications were administered Disposition Summary: 02/04/24 10:40 Hospitalization Ordered Notes: Hospitalization Status: Observation rn Provider: Chito Salazar rn Location: Telemetry/MedSurg (observation) rn Condition: Stable rn Problem: new rn Symptoms: have improved rn Bed/Room Type: Standard rn Room Assignment: 218(02/04/24 11:48) bd Diagnosis - Infectious gastroenteritis and colitis, unspecified rn - Unspecified combined systolic (congestive) and diastolic (congestive) heart failure rn - Dehydration rn - Muscle weakness (generalized) rn Forms: - Medication Reconciliation Form rn - SBAR form rn - Leadership Thank You Letter rn Signatures: Dispatcher [employer] Vickie Irwin Roman, MD MD rn Sims, Lauren, RN RN ld1 Corrections: (The following items were deleted from the chart) 08:15 08:14 CBC+H.LAB.BRZ ordered. EDME EDMS 08:15 08:14 COMPREHENSIVE METABOLIC PANEL+C.LAB.BRZ ordered. EDMS EDMS 08:15 08:14 LIPASE+C.LAB.BRZ ordered. EDMS EDMS 08:15 08:14 PROBNP+C.LAB.BRZ ordered. EDME EDMS 08:15 08:14 SARS-COV-2 Antigen Rapid+I.LAB.BRZ ordered. EDMS EDMS 08:15 08:14 Influenza Screen (A \T\ B)+BA.LAB.BRZ ordered. EDMS EDMS 08:15 08:15 Abdomen Pelvis W Con+CT.RAD.BRZ ordered. EDMS EDMS 08:15 08:15 Chest Single View+RAD.RAD.BRZ ordered. EDMS EDMS 1117 11:17 C.difficile GDH Ag \T\ Toxin AB+LAB.BRZ ordered. EDMS EDMS 11:48 10:40 rn bd
[2024-02-04 14:02] VITALS: BMI 39.1
[2024-02-04] MEDS: CIPROFLOXACIN 400mg IV 400 MG/200 ML BAG IV SCH (15:17)
[2024-02-04 16:13] LABS: Specific Gravity 1.022 (1.005-1.030); Sqamous Epithelial None Seen /HPF (None Seen); Urine Bacteria None Seen /HPF (<20); Urine Bilirubin NEGATIVE (Negative); Urine Blood Trace (Negative); Urine Clarity Turbid (Clear); Urine Color Yellow (Yellow); Urine Crystals Unidentified Few /HPF (None Seen); Urine Culture Reflex Order NOT NEEDED; Urine Glucose NEGATIVE (Negative); Urine Ketones NEGATIVE (Negative); Urine Micro Reflex YN NO BILL MICROSCOPIC; Urine Nitrite NEGATIVE (Negative); Urine Protein TRACE (Negative); Urine Urobilinogen Normal (Normal); Urine WBC <5 /HPF (<5); Urine pH 5.5 (5.0-7.0)
[2024-02-04] MEDS: METRONIDAZOLE 500mg IVPB 500 MG/100 ML BAG IV SCH (16:44)
--- NOTE | 2024-02-04 17:14 | P.CNS ---
Date of Consult: 02/04/24 Chief Complaint: Heart failure History of Present Illness: Patient with PMH of CAD S/P CABG, heart failure, atrial fibrillation s/p watchman, presented with worsening LE edema for the last few days, also report weakness, fatigue, has been having diarrhea, with bilateral lower extremity edema. no chest pain, no SOB, no [place], no palpitations, no syncope. Allergies cortisone Allergy (Verified 11/29/15 16:57) Rash Penicillins Allergy (Verified 11/29/15 16:57) Rash Home medications list reviewed: Yes Home Medications: Hydromorphone HCl [Dilaudid] 4 mg PO DAILYPRN PRN 11/29/15 Magnesium Oxide [Magnesium] 500 mg PO DAILY 11/29/15 Metoprolol Tartrate [Lopressor*] 25 mg PO BID 11/29/15 Pravastatin [Pravachol*] 40 mg PO DAILY 11/29/15 Alendronate Sodium 70 mg PO Q7D 02/04/24 Aspirin Chewable [Aspirin Chewable*] 81 mg PO DAILY 02/04/24 Doxepin HCl [Sinequan*] 25 mg PO BEDTIME 02/04/24 Gabapentin 600 mg PO BID 02/04/24 Insulin Degludec [Tresiba] 34 units SQ DAILY 02/04/24 Torsemide 10 mg PO DAILY 02/04/24 - Past Medical/Surgical History Diabetic: Yes -: CHF -: CAD -: atrial fibrillation -: DM -: HTN -: hypothyroidism -: BPH -: 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 moist/pink, EOMI, Sclerae nonicteric Neck: Supple, 2+ carotid pulse no bruit, No LAD, Without JVD or thyroid abno rmality Respiratory: Clear to auscultation bilaterally, Normal air movement Cardiovascular: Regular rate/rhythm, Normal S1 S2, Edema Gastrointestinal: Normal bowel sounds, No tenderness Musculoskeletal: No tenderness Integumentary: No rashes Neurological: Normal gait, Normal speech, Normal tone, Normal affect Lymphatics: No axilla or inguinal lymphadenopathy Laboratory Data (last 24 hrs) 02/04/24 02/04/24 08:28 08:28 WBC 6.60 Hgb 11.6 L Hct 35.7 L Plt Count 169 Sodium 138 Potassium 4.2 BUN 32 H Creatinine 1.74 H Glucose 193 H Total Bilirubin 0.5 AST 17 ALT 22 Alkaline Phosphatase 109 Lipase 15 - Problems (1) Atrial fibrillation Current Visit: No Status: Chronic Plan: Patient is currently paced, continue Lopressor 25 mg po BID patient is s/p watchman. Qualifiers: Atrial fibrillation type: unspecified Qualified Code(s): I48.91 - Unspecified atrial fibrillation (2) CAD (coronary artery disease) Current Visit: No Status: Chronic Plan: with history of CABG, patient denies having any chest pain, follows up with cardiology (Dr. Gallo), will need outpatient stress test. Qualifiers: Coronary Disease-Associated Artery/Lesion type: bypass graft Solomon vs. transplanted heart: jena heart Associated angina: without angina Qualified Code(s): I25.810 - Atherosclerosis of coronary artery bypass graft(s) without angina pectoris (3) CHF (congestive heart failure) Current Visit: No Status: Chronic Plan: patient looks like volume overloaded, recommend Lasix 40 mg IV BID Monitor input and output monitor and correct electrolytes. Qualifiers: Heart failure type: unspecified Heart failure chronicity: chronic Qualified Code(s): I50.9 - Heart failure, unspecified (4) HTN (hypertension) Current Visit: No Status: Chronic Plan: continue medications as above. get Echo Qualifiers: Hypertension type: primary hypertension Qualified Code(s): I10 - Essential (primary) hypertension
[2024-02-04] MEDS: METHYLPREDNISOLONE 40 MG INJ IV ONE (17:38)
[2024-02-04] MEDS: FUROSEMIDE 40 MG/4 ML VIAL IV SCH (18:17)
--- NOTE | 2024-02-04 18:40 | P.CNS ---
Date of Consult: 02/04/24 Reason for Consult: VINAY/ CKD Requesting Physician: Chito Salazar Chief Complaint: Heart failure History of Present Illness: 84-year-old male Arthritis; coronary atherosclerosis; atrial fibrillation, history of Watchman procedure, diabetes mellitus; Hypertensive disorder; Hypothyroidism presents to the emergency room with weakness, diarrhea. is at bedside is primary historian reports patient has diarrhea for the last 12 hours. She reports he has had associated generalized weakness. Bilateral lower extremity edema. The patient has bilateral lower extremity cellulitis. No reported nausea vomiting fever, chest pain, shortness of breath, plan to admit for acute on chronic heart failure, gastroenteritis, weakness. Cardiology to consult Blood pressure 145 / 70; Pulse 80; Resp 18; Temp 97.8; Pulse Ox 97% on R/A; Weight 106 kg; Height 5 ft. 8 in. ; chest x-ray The lungs are grossly clear. The heart is moderately enlarged with changes of a prior CABG. Sternotomy wires present. CT of the abdomen pelvis IMPRESSION: No acute intra-abdominal or pelvic findings. The colon appears mildly distended and filled with liquid stool which could indicate a diarrheal state.Interval development of several right lower lobe pulmonary nodules. These are nonspecific and incompletely assessed on this study.26 mm solid-appearing masslike lesion adjacent to the pancreatic head region is stable since prior study. [id number] 10:29 This 84 yrs old Male presents to ER via EMS with complaints of Diarrhea. rn 10:29 The patient presents to the emergency department with diarrhea. Onset: The rn symptoms/episode began/occurred yesterday. Possible causes: unknown. The symptoms are aggravated by nothing. The symptoms are alleviated by nothing. Severity of symptoms: At their worst the symptoms were moderate in the emergency department the symptoms are unchanged. The patient has not experienced similar symptoms in the past. Spouse reports diarrhea that began last night. Nonbloody. No vomiting. Is having generalized weakness. Also reports has not been taking his Lasix as he is supposed to and shows increased swelling to lower extremities.. Allergies cortisone Allergy (Verified 11/29/15 16:57) Rash Penicillins Allergy (Verified 11/29/15 16:57) Rash Home medications list reviewed: Yes Home Medications: Hydromorphone HCl [Dilaudid] 4 mg PO DAILYPRN PRN 11/29/15 Magnesium Oxide [Magnesium] 500 mg PO DAILY 11/29/15 Metoprolol Tartrate [Lopressor*] 25 mg PO BID 11/29/15 Pravastatin [Pravachol*] 40 mg PO DAILY 11/29/15 Alendronate Sodium 70 mg PO Q7D 02/04/24 Aspirin Chewable [Aspirin Chewable*] 81 mg PO DAILY 02/04/24 Doxepin HCl [Sinequan*] 25 mg PO BEDTIME 02/04/24 Gabapentin 600 mg PO BID 02/04/24 Insulin Degludec [Tresiba] 34 units SQ DAILY 02/04/24 Torsemide 10 mg PO DAILY 02/04/24 - Past Medical/Surgical History Diabetic: Yes -: CHF -: CAD -: Afib -: DM -: HTN -: Hypothyroidism -: BPH -: CKD (Dr. 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 -: pacemaker -: Watchman -: 3 vessel CABG -: cholecystectomy -: left ankle surgery -: cataract surgery Psychosocial/ Personal History: - Family History Sister Medical History: Cancer - Social History Alcohol use: No CD- Drugs: No Caffeine use: No Place of Residence: Home Review of Systems 10-point ROS is otherwise unremarkable General: Weakness, Malaise Gastrointestinal: Diarrhea Neurological: Weakness Physical Examination Temp Pulse Resp BP Pulse Ox 99.8 F 72 22 H 118/52 L 93 02/04/24 16:00 02/04/24 16:00 02/04/24 16:00 02/04/24 16:00 02/04/24 16:00 General: Cooperative, Obese HEENT: Atraumatic Neck: Supple Respiratory: Normal air movement Cardiovascular: Regular rate/rhythm, Edema Gastrointestinal: Non-distended, Tenderness Musculoskeletal: No clubbing, No warmth Integumentary: No cyanosis, Other (Venous stasis) Neurological: Normal speech Laboratory Data (last 24 hrs) 02/04/24 02/04/24 08:28 08:28 WBC 6.60 Hgb 11.6 L Hct 35.7 L Plt Count 169 Sodium 138 Potassium 4.2 BUN 32 H Creatinine 1.74 H Glucose 193 H Total Bilirubin 0.5 AST 17 ALT 22 Alkaline Phosphatase 109 Lipase 15 Imagings Data: [id number] EXAM DESCRIPTION: RAD - Chest Single View - 02/04/2024 8:22 am CLINICAL HISTORY: sob, CHF Chest pain. COMPARISON: Chest Single View dated 01/25/2022; Chest Single View dated 08/14/2021; CHEST PA AND LAT 2 VIEW dated 08/24/2006 FINDINGS: Portable technique limits examination quality. The lungs are grossly clear. The heart is moderately enlarged with changes of a prior CABG. Sternotomy wires present. IMPRESSION: No acute intrathoracic process suspected. [id number] EXAM DESCRIPTION: CT - Abdomen Pelvis Wo Contrast - 02/04/2024 9:51 am CLINICAL HISTORY: Abdominal pain. diarrhea;Abd pain COMPARISON: Abdomen W/Wo Contrast dated 01/21/2023 TECHNIQUE: CT imaging of the abdomen and pelvis was performed without contrast. Solid organ, bowel and vascular assessment is limited due to lack of IV and oral contrast. All CT scans are performed using dose optimization technique as appropriate and may include automated exposure control or mA/KV adjustment according to patient size. FINDINGS: Several right lower lobe pulmonary nodules are noted, new since prior study dated 01/21/2023. Noncontrast assessment of the liver shows no focal mass or biliary dilatation. Cholecystectomy clips. The pancreas and adrenal glands are unremarkable. Significant pancreatic atrophy is seen. Solid-appearing mass lesion measuring 26 mm adjacent to the pancreatic head region noted, unchanged.4 cm benign appearing cysts lateral aspect of the left kidney. No renal stone or hydronephrosis. No bowel obstruction, free air, free fluid or abscess. Moderate volume liquid stool noted throughout the colon. The appendix is normal. Mild sigmoid diverticulosis coli without diverticulitis. Small bilateral fat containing inguinal hernias. Proximal right femur hardware. IMPRESSION: No acute intra-abdominal or pelvic findings. The colon appears mildly distended and filled with liquid stool which could indicate a diarrheal state. Interval development of several right lower lobe pulmonary nodules. These are nonspecific and incompletely assessed on this study. 26 mm solid-appearing masslike lesion adjacent to the pancreatic head region is stable since prior study. A limited non-contrast examination was performed as detailed. Conclusions/Impression: Stage I VINAY may be due to hypovolemia CKD III -No NSAIDs HTN with CKD/CHF -Continue Metoprolol Diastolic CHF, chronic -Daily weight -Check echocardiogram DM II with CKD -RISS Anemia in chronic illness -Monitor H&H Colitis with diarrhea -Continue Abx Case reviewed with hospitalist team Thank you kindly for the consultation
[2024-02-04] MEDS: ATORVASTATIN 10 MG TAB PO SCH (21:12)
[2024-02-04] MEDS: METOPROLOL TAR 25 MG TAB PO SCH (21:12)
[2024-02-05 00:34] LABS: STOOL CONSISTENCY Formed/Solid (soft)
[2024-02-05 00:35] LABS: C.diff Antigen/Toxin Ag pos : Tox neg (NEG : NEG); CDIFF INTERNAL NEG CONTROL White Background (WHITE BKGD)
--- NOTE | 2024-02-05 06:31 | P.DS ---
Admission Date: 02/04/24 Discharge Date: 02/05/24 Reason for Admission: Heart failure Brief History of Present Illness: 84-year-old male Arthritis; coronary atherosclerosis; atrial fibrillation, history of Watchman procedure, diabetes mellitus; Hypertensive disorder; Hypothyroidism presents to the emergency room with weakness, diarrhea. is at bedside is primary historian reports patient has diarrhea for the last 12 hours. She reports he has had associated generalized weakness. Bilateral lower extremity edema. The patient has bilateral lower extremity cellulitis. No reported nausea vomiting fever, chest pain, shortness of breath, plan to admit for acute on chronic heart failure, gastroenteritis, weakness. Cardiology to consult Blood pressure 145 / 70; Pulse 80; Resp 18; Temp 97.8; Pulse Ox 97% on R/A; Weight 106 kg; Height 5 ft. 8 in. ; chest x-ray The lungs are grossly clear. The heart is moderately enlarged with changes of a prior CABG. Sternotomy wires present. CT of the abdomen pelvis IMPRESSION: No acute intra-abdominal or pelvic findings. The colon appears mildly distended and filled with liquid stool which could indicate a diarrheal state.Interval development of several right lower lobe pulmonary nodules. These are nonspecific and incompletely assessed on this study.26 mm solid-appearing masslike lesion adjacent to the pancreatic head region is stable since prior study. Vital Signs/Physical Exam: Temp Pulse Resp BP Pulse Ox 97.3 F 85 16 120/49 L 96 02/05/24 04:00 02/05/24 04:00 02/05/24 04:00 02/05/24 04:00 02/05/24 04:00 Laboratory Data at Discharge: WBC 6.60 thou/uL (4.3-10.9) 02/04/24 08:28 Hgb 11.6 g/dL (13.6-17.9) L 02/04/24 08:28 Hct 35.7 % (39.6-49.0) L 02/04/24 08:28 Plt Count 169 thou/uL (152-406) 02/04/24 08:28 Sodium 138 mEq/L (136-145) 02/04/24 08:28 Potassium 4.2 mEq/L (3.5-5.1) 02/04/24 08:28 BUN 32 mg/dL (7-18) H 02/04/24 08:28 Creatinine 1.74 mg/dL (0.70-1.30) H 02/04/24 08:28 Glucose 193 mg/dL (74-106) H 02/04/24 08:28 Total Bilirubin 0.5 mg/dL (0.2-1.0) 02/04/24 08:28 AST 17 U/L (15-37) 02/04/24 08:28 ALT 22 U/L (16-61) 02/04/24 08:28 Alkaline Phosphatase 109 U/L (45-117) 02/04/24 08:28 Lipase 15 U/L (13-75) 02/04/24 08:28 Home Medications: Hydromorphone HCl [Dilaudid] 4 mg PO DAILYPRN PRN 11/29/15 Magnesium Oxide [Magnesium] 500 mg PO DAILY 11/29/15 Metoprolol Tartrate [Lopressor*] 25 mg PO BID 11/29/15 Pravastatin [Pravachol*] 40 mg PO DAILY 11/29/15 Alendronate Sodium 70 mg PO Q7D 02/04/24 Aspirin Chewable [Aspirin Chewable*] 81 mg PO DAILY 02/04/24 Doxepin HCl [Sinequan*] 25 mg PO BEDTIME 02/04/24 Gabapentin 600 mg PO BID 02/04/24 Insulin Degludec [Tresiba] 34 units SQ DAILY 02/04/24 Torsemide 10 mg PO DAILY 02/04/24 Followup: Luis Eduardo Jeffries DO [Primary Care Provider] -
[2024-02-05 08:06] LABS: Absolute Lymphocytes (CBC) 2.3 K/uL (0.7-4.9); Absolute Monocytes 0.4 K/uL (0.1-1.3); Absolute Neutrophil 3.9 K/uL (1.8-8.0); Basophils % 0.3 % (0-1.3); Hematocrit 35.1 % (39.6-49.0); Hemoglobin 11.4 g/dL (13.6-17.9); Lymphocytes % 34.9 % (15.3-44.8); MCH 29.1 pg (27.0-35.0); MCHC 32.6 g/dL (32.0-36.0); MCV 89.2 fL (80-100); MPV 7.6 fL (7.6-11.3); Monocytes % 5.5 % (3.3-12.3); Neutrophils % 59.3 % (41.7-73.7); Nucleated Red Blood Cells % 0.1 % (0-0); Platelets 153 thou/uL (152-406); RBC Red Blood Cell Count 3.94 M/uL (4.33-5.43); Red Cell Distribution Width 14.2 % (12.1-15.2)
[2024-02-05 08:53] LABS: Albumin 3.2 g/dL (3.4-5.0); Anion Gap 14.8 mEq/L (5.0-15.0); Bilirubin Total 0.7 mg/dL (0.2-1.0); Globulin 3.3 g/dL (2.3-3.5); Potassium 3.8 mEq/L (3.5-5.1); Protein, Total 6.5 g/dL (6.4-8.2)
[2024-02-05 08:54] LABS: Magnesium 1.7 mg/dL (1.6-2.4)
[2024-02-05] MEDS ORDERED: FUROSEMIDE 40 MG TABLET PO SCH (09:00)
[2024-02-05] MEDS: DOCUSATE NA 100 MG CAP PO SCH (09:00)
[2024-02-05] MEDS ORDERED: HOME MED 1 EA UNK (Pravastatin [Pravachol*] 40 MG/TAB Tab) PO SCH (09:00)
[2024-02-05] MEDS: SPIRONOLACTONE 25 MG TABLET PO SCH (09:04)
--- NOTE | 2024-02-05 10:28 | P.PN ---
Date of Service: 02/05/24 Subjective Loose stools improving, afebrile,, Review of Systems Per HPI Physical Examination - Physical Exam General: Alert, In no apparent distress, Oriented x3 HEENT: Atraumatic, Normocephalic Neck: Supple Respiratory: Normal air movement, Diminished Cardiovascular: Normal pulses, Regular rate/rhythm, Capillary refill: <2 Seconds Gastrointestinal: Normal bowel sounds, Soft and benign Musculoskeletal: No swelling, No contractures, generalized weakness, Integumentary: Other (Bilateral erythema, edema, lower extremity cellulitis) Neurological: Normal speech, Normal strength at 5/5 x4 extr Assessment and Plan - Plan Assessment plan Acute on chronic heart failure unknown baseline Pulmonary edema Bilateral lower extremity edema improving Cardiomegaly History of atrial fibrillation History of Watchman procedure Cardiology consult, telemetry Echo ordered, Diuretics, p.o. metoprolol Blood pressure 145 / 70; Pulse 80; Resp 18; Temp 97.8; Pulse Ox 97% on R/A; Weight 106 kg; Height 5 ft. 8 in. ; chest x-ray The lungs are grossly clear. The heart is moderately enlarged with changes of a prior CABG. Sternotomy wires present. CT of the abdomen pelvis IMPRESSION: No acute intra-abdominal or pelvic findings. The colon appears mildly distended and filled with liquid stool which could indicate a diarrheal state.Interval development of several right lower lobe pulmonary nodules. These are nonspecific and incompletely assessed on this study.26 mm solid-appearing masslike lesion adjacent to the pancreatic head region is stable since prior study. follows up with cardiology (Dr. Gallo), will need outpatient stress test. Gastroenteritis improving IV fluids, Cipro, Flagyl, antibiotics stopped, prn immodium Stool culture CDiff antigen -negative Bilateral lower extremity cellulitis improving Diuretic Daily weight Bilateral lower extremity ultrasound rule out DVT arthritis coronary atherosclerosis diabetes mellitus. Hypertensive disorder Hypothyroidism Resume appropriate home meds Full code DVT SCDs Cardiac diet Disposition Home independent prior, use of rolling walker
[2024-02-05] MEDS: VANCOMYCIN HCL 125 MG CAPSULE PO SCH (11:39)
[2024-02-05] MEDS: INSULIN REGULAR (HUMAN) 100 UNIT/ML SQ SCH (12:20)
--- NOTE | 2024-02-05 12:30 | P.PN ---
Subjective Date of Service: 02/05/24 Chief Complaint: Heart failure Subjective: No new changes, No C/O voiced, Tolerating diet, Ambulating, Improving Review of Systems 10-point ROS is otherwise unremarkable Physical Examination - Vital Signs Temperature: 98.1 F Blood Pressure: 130/72 Pulse: 69 Respirations: 16 Pulse Ox (%): 95 - Physical Exam General: Alert, In no apparent distress HEENT: Atraumatic, PERRLA, EOMI Neck: Supple, JVD not distended Respiratory: Clear to auscultation bilaterally, Normal air movement Cardiovascular: Regular rate/rhythm, Normal S1 S2 Gastrointestinal: Normal bowel sounds, No tenderness Musculoskeletal: No tenderness Integumentary: No rashes Neurological: Normal speech, Normal tone, Normal affect Lymphatics: No axilla or inguinal lymphadenopathy - Studies Microbiology Data (last 24 hrs): 02/04/24 08:28 Nasopharnyx Influenza Type A Antigen Screen - Final 02/04/24 08:28 Nasopharnyx Influenza Type B Antigen Screen - Final Medications List Reviewed: Yes Assessment And Plan - Current Problems (Diagnosis) (1) Atrial fibrillation Current Visit: No Status: Chronic Plan: Patient is currently paced, continue Lopressor 25 mg po BID patient is s/p watchman. continue ASA 81 mg daily Qualifiers: Atrial fibrillation type: unspecified Qualified Code(s): I48.91 - Unspecified atrial fibrillation (2) CAD (coronary artery disease) Current Visit: No Status: Chronic Plan: with history of CABG, patient denies having any chest pain, follows up with cardiology (Dr. Gallo), will need outpatient stress test. Qualifiers: Coronary Disease-Associated Artery/Lesion type: bypass graft [place] vs. transplanted heart: [place] heart Associated angina: without angina Qualified Code(s): I25.810 - Atherosclerosis of coronary artery bypass graft(s) without angina pectoris (3) CHF (congestive heart failure) Current Visit: No Status: Chronic Plan: patient diuresing well, continue Lasix 40 mg IV BID Monitor input and output monitor and correct electrolytes. Qualifiers: Heart failure type: unspecified Heart failure chronicity: chronic Qualified Code(s): I50.9 - Heart failure, unspecified (4) HTN (hypertension) Current Visit: No Status: Chronic Plan: continue medications as above. get Echo Qualifiers: Hypertension type: primary hypertension Qualified Code(s): I10 - Essential (primary) hypertension
--- NOTE | 2024-02-05 13:09 | EKG ---
Test Date: 2024-02-04 Test Time: 08:34:54 Chief Nursing Officer: KASIA MEASUREMENT RESULTS: Intervals: Rate: 80 GA: QRSD: 72 QT: 340 QTc: 392 [place]: P: GA: QRS: 44 T: 4 INTERPRETIVE STATEMENTS: Demand pacemaker, interpretation is based on intrinsic rhythm Undetermined rhythm Lateral infarct, age undetermined Inferior infarct, age undetermined T wave abnormality, consider anterior ischemia Abnormal ECG Compared to ECG 01/25/2022 11:52:28 Myocardial infarct finding now present T-wave abnormality now present Possible ischemia now present Electronically Signed On 02-05-24 13:05:50 CDT by Ricky Garcia
--- NOTE | 2024-02-05 13:41 | ECHO ---
HEIGHT: 5 ft 2 in WEIGHT: 214 lb 0 oz DATE OF STUDY: 02/05/[address]: Lindsey Tavarez ELIGIBILITY COUNSELORMarisa 2-DIMENSIONAL: YES M.MODE: YES DOPPLER: YES COLOR FLOW: YES TDS: PORTABLE: YES DEFINITY: BUBBLE STUDY: DIAGNOSIS: HEART FAILURE CARDIAC HISTORY: CATHERIZATION: YES SURGERY: YES PROSTHETIC VALVE: NO PACEMAKER: NO MEASUREMENTS (cm) DIASTOLIC (NORMALS) SYSTOLIC (NORMALS) IVSd 1.3 (0.6-1.2) LA Diam 4.3 (1.9-4.0) LVEF 55-60% LVIDd 4.3 (3.5-5.7) LVIDs 3.1 (2.0-3.5) %FS 28% LVPWd 1.3 (0.6-1.2) Ao Diam 3.0 (2.0-3.7) 2 DIMENSIONAL ASSESSMENT: RIGHT ATRIUM: NORMAL LEFT ATRIUM: ENLARGED RIGHT VENTRICLE: NORMAL LEFT VENTRICLE: NORMAL TRICUSPID VALVE: MODERATE TRICUSPID REGURGITATION MITRAL VALVE: NORMAL PULMONIC VALVE: NORMAL AORTIC VALVE: CALCIFIED, NO AORTIC STENOSIS PERICARDIAL EFFUSION: NONE AORTIC ROOT: NORMAL LEFT VENTRICULAR WALL MOTION: NORMAL DOPPLER/COLOR FLOW: SEE BELOW COMMENTS: 1. NORMAL LEFT VENTRICULAR EJECTION FRACTION 55-60% WITH NORMAL WALL MOTION 2. DIASTOLIC DYSFUNCTION AT LEAST MODERATE 3. MODERATE TRICUSPID REGURGITATION 4. LEFT ATRIAL ENLARGEMENT 5. PULMONARY HYPERTENSION WITH RIGHT VENTRICULAR SYSTOLIC PRESSURE OF 45 mmHg PLUS RIGHT ATRIAL PRESSURE TECHNOLOGIST: PAWAN MACIAS
--- NOTE | 2024-02-05 16:10 | P.PN ---
Date of Service: 02/05/24 Subjective is at bedside, reports 6-7 stools, request WC at discharge, for generalized weakness Review of Systems Per HPI Physical Examination - Physical Exam General: Alert, In no apparent distress, Oriented x3 HEENT: Atraumatic, Normocephalic Neck: Supple Respiratory: Normal air movement, Diminished Cardiovascular: Normal pulses, Regular rate/rhythm, Edema (+2 lower extremity edema) Capillary refill: <2 Seconds Gastrointestinal: Normal bowel sounds, Soft and benign Musculoskeletal: No swelling, No contractures, generalized weakness Integumentary: Other (Bilateral erythema, edema, lower extremity cellulitis) Neurological: Normal speech, Normal strength at 5/5 x4 extr Assessment and Plan - Plan Assessment plan Acute on chronic heart failure Pulmonary edema Bilateral lower extremity edema Cardiomegaly History of atrial fibrillation History of Watchman procedure Cardiology consult, telemetry Echo ordered, Diuretics, p.o. metoprolol Blood pressure 145 / 70; Pulse 80; Resp 18; Temp 97.8; Pulse Ox 97% on R/A; Weight 106 kg; Height 5 ft. 8 in. ; chest x-ray The lungs are grossly clear. The heart is moderately enlarged with changes of a prior CABG. Sternotomy wires present. CT of the abdomen pelvis IMPRESSION: No acute intra-abdominal or pelvic findings. The colon appears mildly distended and filled with liquid stool which could indicate a diarrheal state.Interval development of several right lower lobe pulmonary nodules. These are nonspecific and incompletely assessed on this study.26 mm solid-appearing masslike lesion adjacent to the pancreatic head region is stable since prior study. follows up with cardiology (Dr. Gallo), will need outpatient stress test. Gastroenteritis Cipro, Flagyl,prn immodium Stool culture CDiff antigen - Bilateral lower extremity cellulitis Diuretic Daily weight Bilateral lower extremity ultrasound rule out DVT arthritis coronary atherosclerosis diabetes mellitus. Hypertensive disorder Hypothyroidism Resume appropriate home meds Full code DVT SCDs Cardiac diet Disposition Home independent prior, use of rolling walker
[2024-02-05] MEDS: LOPERAMIDE HCL 2 MG CAPSULE PO PRN (16:37)
--- NOTE | 2024-02-05 17:38 | RAD REPORT ---
EXAM DESCRIPTION: US - Extrem Venous W Compress Fernando - 02/05/2024 4:15 pm CLINICAL HISTORY: BLE edema Bilateral leg edema and swelling. COMPARISON: <Comparisons> TECHNIQUE: Real-time sonographic interrogation of the left and right lower extremity deep venous sys tems was performed. FINDINGS: Normal compressibility, flow augmentation, phasic flow and spontaneous flow is identified in both the left and right lower extremity deep venous systems. IMPRESSION: No sonographic evidence of left or right lower extremity deep venous thrombosis.
[2024-02-05] MEDS: HYDROMORPHONE ORAL 4 MG TAB PO PRN (17:48)
--- NOTE | 2024-02-05 21:48 | P.PN ---
Date of Service: 02/05/24 Vital Signs Temp Pulse Resp BP Pulse Ox 98 F 74 17 103/45 L 96 02/05/24 20:00 02/05/24 20:00 02/05/24 20:00 02/05/24 20:00 02/05/24 20:00 Medications Atorvastatin Calcium (Atorvastatin 10 Mg Tab) 10 mg PO BEDTIME [facility] Last Admin: 02/05/24 20:59 Dose: 10 mg Docusate Sodium (Docusate Na 100 Mg Cap) 100 mg PO DAILY [facility] Last Admin: 02/05/24 09:00 Dose: Not Given Furosemide (Furosemide 40 Mg/4 Ml Vial) 40 mg IV BIDL [facility] Last Admin: 02/05/24 16:35 Dose: 40 mg Hydromorphone HCl (Hydromorphone Oral 4 Mg Tab) 4 mg PO DAILYPRN PRN PRN Reason: Pain scale 5-7 (Moderate) Last Admin: 02/05/24 17:48 Dose: 4 mg Insulin Human Regular (Insulin Regular (Human) 100 Unit/Ml) 0 unit SQ ACHS [facility]; Protocol Last Admin: 02/05/24 20:58 Dose: 2 unit Loperamide HCl (Loperamide Hcl 2 Mg Capsule) 2 mg PO Q12H PRN PRN Reason: DIARRHEA Last Admin: 02/05/24 16:37 Dose: 2 mg Metoprolol Tartrate (Metoprolol Tar 25 Mg Tab) 25 mg PO BID [facility] Last Admin: 02/05/24 09:04 Dose: 25 mg Spironolactone (Spironolactone 25 Mg Tablet) 25 mg PO DAILY [facility] Last Admin: 02/05/24 09:04 Dose: 25 mg Microbiology Results 02/04/24 08:28 Nasopharnyx Influenza Type A Antigen Screen - Final 02/04/24 08:28 Nasopharnyx Influenza Type B Antigen Screen - Final Assessment/ Plan: Nephrology No dyspnea No chest pain Persistent diarrhea but feeling better today No acute events overnight Vitals, medications, blood work and imaging reviewed in the chart General: Cooperative, Obese HEENT: Atraumatic Neck: Supple Respiratory: Normal air movement Cardiovascular: Regular rate/rhythm, Edema Gastrointestinal: Non-distended, Tenderness Musculoskeletal: No clubbing, No warmth Integumentary: No cyanosis, Other (Venous stasis) Neurological: Normal speech Laboratory Data (last 24 hrs) 02/04/24 02/04/24 08:28 08:28 WBC 6.60 Hgb 11.6 L Hct 35.7 L Plt Count 169 Sodium 138 Potassium 4.2 BUN 32 H Creatinine 1.74 H Glucose 193 H Total Bilirubin 0.5 AST 17 ALT 22 Alkaline Phosphatase 109 Lipase 15 Imagings Data: EXAM DESCRIPTION: RAD - Chest Single View - 02/04/2024 8:22 am CLINICAL HISTORY: sob, CHF Chest pain. COMPARISON: Chest Single View dated 01/25/2022; Chest Single View dated 08/14/2021; CHEST PA AND LAT 2 VIEW dated 08/24/2006 FINDINGS: Portable technique limits examination quality. The lungs are grossly clear. The heart is moderately enlarged with changes of a prior CABG. Sternotomy wires present. IMPRESSION: No acute intrathoracic process suspected. EXAM DESCRIPTION: CT - Abdomen Pelvis Wo Contrast - 02/04/2024 9:51 am CLINICAL HISTORY: Abdominal pain. diarrhea;Abd pain COMPARISON: Abdomen W/Wo Contrast dated 01/21/2023 TECHNIQUE: CT imaging of the abdomen and pelvis was performed without contrast. Solid organ, bowel and vascular assessment is limited due to lack of IV and oral contrast. All CT scans are performed using dose optimization technique as appropriate and may include automated exposure control or mA/KV adjustment according to patient size. FINDINGS: Several right lower lobe pulmonary nodules are noted, new since prior study dated 01/21/2023. Noncontrast assessment of the liver shows no focal mass or biliary dilatation. Cholecystectomy clips. The pancreas and adrenal glands are unremarkable. Significant pancreatic atrophy is seen. Solid-appearing mass lesion measuring 26 mm adjacent to the pancreatic head region noted, unchanged.4 cm benign appearing cysts lateral aspect of the left kidney. No renal stone or hydronephrosis. No bowel obstruction, free air, free fluid or abscess. Moderate volume liquid stool noted throughout the colon. The appendix is normal. Mild sigmoid diverticulosis coli without diverticulitis. Small bilateral fat containing inguinal hernias. Proximal right femur hardware. IMPRESSION: No acute intra-abdominal or pelvic findings. The colon appears mildly distended and filled with liquid stool which could indicate a diarrheal state. Interval development of several right lower lobe pulmonary nodules. These are nonspecific and incompletely assessed on this study. 26 mm solid-appearing masslike lesion adjacent to the pancreatic head region is stable since prior study. A limited non-contrast examination was performed as detailed. LEFT VENTRICULAR WALL MOTION: NORMAL DOPPLER/COLOR FLOW: SEE BELOW COMMENTS: 1. NORMAL LEFT VENTRICULAR EJECTION FRACTION 55-60% WITH NORMAL WALL MOTION 2. DIASTOLIC DYSFUNCTION AT LEAST MODERATE 3. MODERATE TRICUSPID REGURGITATION 4. LEFT ATRIAL ENLARGEMENT 5. PULMONARY HYPERTENSION WITH RIGHT VENTRICULAR SYSTOLIC PRESSURE OF 45 mmHg PLUS RIGHT ATRIAL PRESSURE Conclusions/Impression: Stage I VINAY may be CRS CKD III -No NSAIDs -Continue diuresis HTN with CKD/CHF -Continue Metoprolol Diastolic CHF, chronic Moderate TR Pulmonary HTN -Daily weight -Echocardiogram reviewed DM II with CKD -RISS Anemia in chronic illness -Monitor H&H Colitis with diarrhea -Continue Abx Hospitalist note reviewed
[2024-02-06] MEDS ORDERED: MORPHINE 2 MG/ML SYR IV PRN (00:23)
[2024-02-06] MEDS: HYDROCODONE/APAP 5/325 MG TAB PO PRN (00:43)
--- NOTE | 2024-02-06 05:58 | P.DS ---
Admission Date: 02/04/24 Discharge Date: 02/06/24 Disposition: ROUTINE DISCHARGE Discharge Condition: GOOD Reason for Admission: Heart failure Brief History of Present Illness: 84-year-old male Arthritis; coronary atherosclerosis; atrial fibrillation, history of Watchman procedure, diabetes mellitus; Hypertensive disorder; Hypothyroidism presents to the emergency room with weakness, diarrhea. is at bedside is primary historian reports patient has diarrhea for the last 12 hours. She reports he has had associated generalized weakness. Bilateral lower extremity edema. The patient has bilateral lower extremity cellulitis. No reported nausea vomiting fever, chest pain, shortness of breath, plan to admit for acute on chronic heart failure, gastroenteritis, weakness. Cardiology to consult Blood pressure 145 / 70; Pulse 80; Resp 18; Temp 97.8; Pulse Ox 97% on R/A; Weight 106 kg; Height 5 ft. 8 in. ; chest x-ray The lungs are grossly clear. The heart is moderately enlarged with changes of a prior CABG. Sternotomy wires present. CT of the abdomen pelvis IMPRESSION: No acute intra-abdominal or pelvic findings. The colon appears mildly distended and filled with liquid stool which could indicate a diarrheal state.Interval development of several right lower lobe pulmonary nodules. These are nonspecific and incompletely assessed on this study.26 mm solid-appearing masslike lesion adjacent to the pancreatic head region is stable since prior study. Hospital Course: 84-year-old male Arthritis; coronary atherosclerosis; atrial fibrillation, history of Watchman procedure, diabetes mellitus; Hypertensive disorder; Hypothyroidism presents to the emergency room with weakness, diarrhea. is at bedside is primary historian reports patient has diarrhea for the last 12 hours. She reports he has had associated generalized weakness. Bilateral lower extremity edema. The patient has bilateral lower extremity edema. He was evaluated by cardiology, treated for acute on chronic heart failure, was diuresed. Had diarrhea, stool C. difficile was negative for C. difficile antigen. He was treated with IV IV fluids, Lomotil. He is stable, tolerating diet, patient can discharge home follow-up with cardiology after discharge. Follow-up with nephrology Dr. Beba cat after discharge. Plan to send to outpatient rehab, [facility] Chichi ALVARENGA to deliver wheelchair to patient. Prescription medications Aldactone 25 mg daily Low Imodium 2 mg every 12 hours as needed diarrhea Continue home medicines as previously prescribed GOAL: Clear understanding of disease process INSTRUCTIONS: Physician Discharge Instructions: -Follow-up with cardiology after discharge -Follow-up with nephrology after discharge -Follow-up with PCP in 1 to 2 weeks -Please call Dr. Salazar at [phone] if any questions regarding hospital stay -Please call nursing station at [phone] if any nursing or medication questions -Return to the emergency room if symptoms worsen Diet: ADA, low sodium Activity: Fall precautions Vital Signs/Physical Exam: Temp Pulse Resp BP Pulse Ox 97.1 F 75 18 107/60 97 02/06/24 04:00 02/06/24 04:00 02/06/24 04:00 02/06/24 04:00 02/06/24 04:00 Laboratory Data at Discharge: WBC 6.50 thou/uL (4.3-10.9) 02/05/24 07:54 Hgb 11.4 g/dL (13.6-17.9) L 02/05/24 07:54 Hct 35.1 % (39.6-49.0) L 02/05/24 07:54 Plt Count 153 thou/uL (152-406) 02/05/24 07:54 Sodium 138 mEq/L (136-145) 02/05/24 07:54 Potassium 3.8 mEq/L (3.5-5.1) 02/05/24 07:54 BUN 42 mg/dL (7-18) H 02/05/24 07:54 Creatinine 1.69 mg/dL (0.70-1.30) H 02/05/24 07:54 Glucose 245 mg/dL (74-106) H 02/05/24 07:54 Magnesium 1.7 mg/dL (1.6-2.4) 02/05/24 07:54 Total Bilirubin 0.7 mg/dL (0.2-1.0) 02/05/24 07:54 AST 22 U/L (15-37) 02/05/24 07:54 ALT 18 U/L (16-61) 02/05/24 07:54 Alkaline Phosphatase 98 U/L (45-117) 02/05/24 07:54 Lipase 9 U/L (13-75) L 02/05/24 07:54 Home Medications: Hydromorphone HCl [Dilaudid] 4 mg PO DAILYPRN PRN 11/29/15 Magnesium Oxide [Magnesium] 500 mg PO DAILY 11/29/15 Metoprolol Tartrate [Lopressor*] 25 mg PO BID 11/29/15 Pravastatin [Pravachol*] 40 mg PO DAILY 11/29/15 Alendronate Sodium 70 mg PO Q7D 02/04/24 Aspirin Chewable [Aspirin Chewable*] 81 mg PO DAILY 02/04/24 Doxepin HCl [Sinequan*] 25 mg PO BEDTIME 02/04/24 Gabapentin 600 mg PO BID 02/04/24 Insulin Degludec [Tresiba] 34 units SQ DAILY 02/04/24 Torsemide 10 mg PO DAILY 02/04/24 Loperamide [Imodium*] 2 mg PO Q12H PRN #10 cap 02/06/24 Spironolactone [Aldactone*] 25 mg PO DAILY #30 tab 02/06/24 New Medications: Spironolactone [Aldactone*] 25 mg PO DAILY #30 tab Loperamide [Imodium*] 2 mg PO Q12H PRN #10 cap PRN Reason: Diarrhea Diet: AHA Activity: Fall precautions Followup: Luis Eduardo Jeffries DO [Primary Care Provider] - 1-2 Weeks Time spent managing pt's care (in minutes): 45
[2024-02-06 10:56] LABS: Absolute Lymphocytes (CBC) 1.5 K/uL (0.7-4.9); Absolute Monocytes 0.6 K/uL (0.1-1.3); Absolute Neutrophil 6.4 K/uL (1.8-8.0); Basophils % 0.2 % (0-1.3); Eosinophils % 0.6 % (0-4.4); Hematocrit 35.4 % (39.6-49.0); Hemoglobin 11.6 g/dL (13.6-17.9); Lymphocytes % 17.4 % (15.3-44.8); MCHC 32.9 g/dL (32.0-36.0); MCV 88.2 fL (80-100); MPV 7.6 fL (7.6-11.3); Monocytes % 7.4 % (3.3-12.3); Neutrophils % 74.4 % (41.7-73.7); Platelets 185 thou/uL (152-406); RBC Red Blood Cell Count 4.01 M/uL (4.33-5.43)
[2024-02-06 11:21] LABS: Anion Gap 11.5 mEq/L (5.0-15.0); Magnesium 1.5 mg/dL (1.6-2.4); Potassium 3.5 mEq/L (3.5-5.1)
[2024-02-06 12:41] VITALS: O2SAT 97
[2024-02-06] MEDS: Magnesium Sulfate 2gm IVPB 2 G/50 ML BAG IV ONE (12:55)
[2024-02-06 14:30] VITALS: BP 114/53; TEMP 98.3
--- NOTE | 2024-02-06 16:18 | PN ---
Date of Progress Note: 02/06/2024 Subjective: Seen by bedside. No chest pain or shortness of breath. Review of Systems: No chest pain, shortness of breath, orthopnea, cough. No nausea, vomiting, diarrhea. All other syst ems reviewed are negative. Physical Examination: Vital Signs: Reviewed. Head and Neck: Pupils are equal, reactive to light. Intact eye movements. No JVD. No cervical lym phadenopathy. Neck is supple. Thyroid is not enlarged. Lungs: Decreased breathing sounds. No accessory muscle use or muscle retraction. Heart: Irregular. No extra sounds. Abdomen: Soft, nontender. Bowel sounds positive. No organomegaly. No masses or hernia. No rigidi ty or rebound. Extremities: No edema, clubbing, or cyanosis. Intact pulses. Skin: No rash. No nodule. Neurologic: Alert, awake. No acute focal deficits appreciated. Investigations: BUN 41, creatinine 0.65. Hemoglobin is 11.6. Assessment/recommendations: 1.Acute on chronic congestive heart failure exacerbation, diuresed very well. Recommend to switch L asix to oral 40 mg twice a day. Monitor BUN, creatinine, electrolytes, and patient appears to be fredo roaching euvolemic status. 2.Coronary artery disease. There is no chest pain. Cardiac enzymes were not checked due to not hav ing any symptoms. Appears to be stable. Continue current management and then follow up on outpatien t basis. 3.Atrial fibrillation, chronic issue, but controlled. Continue current management including metopro lol. Apparently, had Watchman in the past. Add baby aspirin 81 mg. 4.Dyslipidemia. Continue statin. Cardiology will sign off. SR/MODL Voice ID: [id number] Report ID: [id number]
== END 2024-02-06 15:16 | disposition home or self-care (01) | DRG 291 ==
LOC: ER 07:36 → ERHOLD 10:56 → 2ND 11:52
PROVIDERS: ADMIT Hospitalist; ATTEND Hospitalist
DX: I13.0 Hypertensive heart and chronic kidney disease with heart failure and stage 1 through stage 4 chronic kidney disease, or unspecified chronic kidney disease (principal); I50.33 Acute on chronic diastolic (congestive) heart failure; A09 Infectious gastroenteritis and colitis, unspecified; L03.115 Cellulitis of right lower limb; L03.116 Cellulitis of left lower limb; I25.810 Atherosclerosis of coronary artery bypass graft(s) without angina pectoris; N17.9 Acute kidney failure, unspecified; N18.30 Chronic kidney disease, stage 3 unspecified; E11.22 Type 2 diabetes mellitus with diabetic chronic kidney disease; D63.1 Anemia in chronic kidney disease; E03.9 Hypothyroidism, unspecified; E86.0 Dehydration; I07.1 Rheumatic tricuspid insufficiency; E66.9 Obesity, unspecified; I27.20 Pulmonary hypertension, unspecified; I87.8 Other specified disorders of veins; E78.5 Hyperlipidemia, unspecified; N40.0 Benign prostatic hyperplasia without lower urinary tract symptoms; M19.90 Unspecified osteoarthritis, unspecified site; I48.91 Unspecified atrial fibrillation; Z88.0 Allergy status to penicillin; Z95.0 Presence of cardiac pacemaker; Z79.4 Long term (current) use of insulin; Z88.8 Allergy status to other drugs, medicaments and biological substances; Z11.52 Encounter for screening for COVID-19; Z90.49 Acquired absence of other specified parts of digestive tract; Z79.82 Long term (current) use of aspirin; Z68.39 Body mass index [BMI] 39.0-39.9, adult; Z85.07 Personal history of malignant neoplasm of pancreas; Z79.899 Other long term (current) drug therapy; Z87.891 Personal history of nicotine dependence
CPT/HCPCS: 36415; 71045; 74176; 80048; 80053; 81001; 82947; 83690; 83735; 83880; 85025; 86301; 87045; 87046; 87086; 87088; 87324; 87804; 87811; 93005; 93306; 93970; 97116; 97161; 97530; 99285; J0744; J1940; J2919; J3475

== ENCOUNTER 2024-05-03 11:14 | Inpatient (IN) | payer MEDICARE ==
--- NOTE | 2024-05-03 12:52 | RAD REPORT ---
EXAM: CT CHEST, ABDOMEN AND PELVIS WITHOUT CONTRAST CLINICAL INDICATION: Male, 84 years old. [facility] MAIN fall, AMS, abd pain, back pain Bed: TECHNIQUE: CT chest, abdomen and pelvis was performed, without IV contrast, as per department protoco l. Axial, sagittal and coronal reconstructions were obtained. One or more of the following dose reduction techniques were used: Automated exposure control, adjustment of the mA and/or kV according to the patient size, and/or iterative reconstruction. Unless otherwise specified, incidental findings do not require dedicated imaging follow-up. COMPARISON: CT abdomen and pelvis 02/04/2024 FINDINGS: The lack of intravenous contrast limits the sensitivity of this exam for evaluation of solid visceral organs, vascular structures, and retroperitoneum. Chest: LOWER NECK/CHEST WALL: Visualized thyroid gland and soft tissues are normal. Left chest wall pacer/AI CD in place. LUNGS AND AIRWAYS: Airways are clear. No evidence of airspace or interstitial process. Multiple bilat eral pulmonary nodules are seen. The largest of these is in the lingular segment measuring 8 mm on axial image 28. Another anterior left upper lobe 3 mm nodule is seen on axial image 25. Right apical para bronchovascular 4 mm nodule seen on axial image 14. Peripheral lower segment right upper lobe 4 mL nodule seen on axial image 23. PLEURA: No pleural effusion. No pneumothorax. Hemidiaphragms are normally positioned. MEDIASTINUM AND LYMPH NODES: No mediastinal mass or fluid collection. Normal size mediastinal, hilar, and axillary lymph nodes. Left atrial appendage occlusion device in place. THORACIC AORTA: Normal caliber and configuration. PULMONARY ARTERIES: Normal caliber. HEART: Unremarkable. Abdomen/Pelvis LIVER: Normal in size and contour. No focal lesion. GALLBLADDER/BILE DUCTS: Status post cholecystectomy PANCREAS: No mass, ductal dilation, or popeye-pancreatic fluid. SPLEEN: Normal size. No focal lesion. ADRENALS: Normal; no mass. KIDNEYS AND URETERS: Normal size and contour. No hydronephrosis. Exophytic left upper to midpole 5.2 cm cyst and other smaller right lower pole exophytic cysts are grossly stable. GASTROINTESTINAL TRACT: Stomach is non-dilated. Small bowel has normal course and caliber. No colonic wall thickening or pericolonic inflammatory changes. PERITONEUM: No free fluid. LYMPH NODES: No lymphadenopathy. ABDOMINAL AORTA AND OTHER VESSELS: Normal caliber aorta and IVC. URINARY BLADDER: Decompressed, limiting evaluation. REPRODUCTIVE ORGANS: No pathologic process. MUSCULOSKELETAL: No acute or suspicious osseous abnormality. ADDITIONAL FINDINGS: Bilateral small inguinal hernias containing fat. IMPRESSION: No acute or significant abnormalities in the chest, abdomen, or pelvis. Bilateral pulmonary nodules incidentally noted, largest measuring 8 mm in the left lingular segment. 2017 Fleischner Society Recommendations for Lung Nodule(s): Follow-Up based on size (average of long- and short-axis diameters). Use most suspicious nodule for followup. If patient is low risk, recommend a non-contrast chest CT at 3-6 months, then consider another non-co ntrast chest CT at 18-24 months. If patient is high risk, recommend a non-contrast chest CT at 3-6 months, then another non-contrast chest CT at 18-24 months, if stable. These guidelines do not apply to patients younger than 35 years, immunocompromised patients, and pb ents with cancer. F/u in patients with significant comorbidities as clinically warranted. For lung cancer screening, adhere to Lung-RADS guidelines. Reference: Radiology. 2017 [place]; 284(1):228-243
--- NOTE | 2024-05-03 12:57 | RAD REPORT ---
EXAM: CT brain without contrast HISTORY: fall, head injury, AMS COMPARISON: None TECHNIQUE: Multiple contiguous axial images were obtained and a CT of the brain without contrast. Sag ittal and coronal reformats were performed. FINDINGS: No evidence of hydrocephalus, intracranial hemorrhage, or extra-axial fluid collection. The brain is normal in morphology. The calvarium is intact. The visualized paranasal sinuses and mastoid air cells are essentially clear . IMPRESSION: No evidence of acute intracranial abnormality. EXAM: CT of the cervical spine without contrast HISTORY: fall, head injury, AMS COMPARISON: None TECHNIQUE: Multiple contiguous axial images were obtained in a CT of the cervical spine without contr ast. Sagittal and coronal reformats were performed. FINDINGS: The vertebral bodies demonstrate normal height and alignment. No evidence of acute fracture or subluxation. Nonunited fractures along the spinous processes of C6 and C7, with corticated margins, suggesting remote fractures. No degenerative changes are present. No prevertebral soft tiss ue swelling is seen. The posterior facets are well aligned. Normal alignment of the skull base with the cervical spine is seen. The lung apices are unremarkable. IMPRESSION: No evidence of acute osseous abnormality of the cervical spine. Remote appearing fractures of the spi nous processes of C6 and C7.
--- NOTE | 2024-05-03 13:07 | RAD REPORT ---
EXAMINATION: ONE VIEW CHEST XR CLINICAL INDICATION: AMS TECHNIQUE: Frontal chest projection is submitted. Examination is limited by patient positioning and t echnique. COMPARISON: 02/04/2024 FINDINGS: Mild bilateral pulmonary edema is suspected. The heart is moderately enlarged in size. Sternotomy wir es. Single-lead pacer device. IMPRESSION: Mild CHF versus volume overload pattern is suspected.
[2024-05-03] MEDS ORDERED: NA CHLORIDE 0.9% 1,000 ML ONE (13:26)
[2024-05-03 13:55] LABS: Absolute Lymphocytes (CBC) 2.5 K/uL (0.7-4.9); Absolute Monocytes 1.1 K/uL (0.1-1.3); Absolute Neutrophil 13.1 K/uL (1.8-8.0); Basophils % 0.3 % (0-1.3); Eosinophils % 0.1 % (0-4.4); Hematocrit 33.7 % (39.6-49.0); Hemoglobin 11.1 g/dL (13.6-17.9); Lymphocytes % 14.9 % (15.3-44.8); MCH 29.9 pg (27.0-35.0); MCV 90.5 fL (80-100); MPV 7.8 fL (7.6-11.3); Monocytes % 6.4 % (3.3-12.3); Neutrophils % 78.3 % (41.7-73.7); Platelets 151 thou/uL (152-406); RBC Red Blood Cell Count 3.72 M/uL (4.33-5.43); Red Cell Distribution Width 15.1 % (12.1-15.2)
[2024-05-03 14:01] LABS: Protime INR 1.26
[2024-05-03 14:02] LABS: PTT, Activated Partial Thromb 29.2 SECONDS (24.3-36.9)
[2024-05-03 14:14] LABS: Albumin 3.1 g/dL (3.4-5.0); Albumin/Globulin Ratio 0.8 (1.1-1.8); Anion Gap 8.2 mEq/L (5.0-15.0); Bilirubin Total 1.2 mg/dL (0.2-1.0); Globulin 3.7 g/dL (2.3-3.5); Potassium 4.2 mEq/L (3.5-5.1); Protein, Total 6.8 g/dL (6.4-8.2)
[2024-05-03] MEDS ORDERED: NA CHLORIDE 0.9% 500 ML ONE ×2 (14:37→16:03)
[2024-05-03] MEDS ORDERED: CEFTRIAXONE 1000 MG/VIAL ONE (15:25)
[2024-05-03 16:27] LABS: Specific Gravity 1.018 (1.005-1.030); Sqamous Epithelial None Seen /HPF (None Seen); Urine Bacteria 20-50 /HPF (<20); Urine Bilirubin NEGATIVE (Negative); Urine Blood 2+ (Negative); Urine Clarity Extremely Turbid (Clear); Urine Color Yellow (Yellow); Urine Crystals Unidentified Few /HPF (None Seen); Urine Culture Reflex Order REFLEXED; Urine Glucose NEGATIVE (Negative); Urine Ketones NEGATIVE (Negative); Urine Microscopic Reflex YN ORDER UMIC; Urine Mucus 1+ /HPF (None Seen); Urine Nitrite NEGATIVE (Negative); Urine Protein 1+ (Negative); Urine Urobilinogen 1+ (Normal); Urine WBC >50 /HPF (<5); Urine WBC Clump Many /HPF (None Seen)
--- NOTE | 2024-05-03 16:46 | ER ---
Nurse's Notes [facility] Name: Lex Henning Age: 84 yrs Sex: Male : 1940 Arrival Date: 05/03/2024 Time: 11:14 Bed 4 Private MD: Diagnosis: Severe sepsis with septic shock;UTI/ Urinary tract infection, site not specified Presentation: 05/03 12:23 Chief complaint: Spouse and/or significant other states: "Since yesterday, he has been ss really jumpy, shaky and tired.". Coronavirus screen: Client denies travel out of the [place] in the last 14 days. Ebola Screen: Patient denies exposure to infectious person. Patient denies travel to an Ebola-affected area in the 21 days before illness onset. Initial Sepsis Screen: Does the patient meet any 2 criteria? No. Patient's initial sepsis screen is negative. Does the patient have a suspected source of infection? No. Patient's initial sepsis screen is negative. Risk Assessment: Do you want to hurt yourself or someone else? Patient reports no desire to harm self or others. Onset of symptoms was May 02, 2024. 12:23 Method Of Arrival: Wheelchair ss 12:23 Acuity: YOVANNY 2 ss Historical: - Allergies: 12:25 Cortisone; ss 12:25 PENICILLINS; ss - PMHx: 12:25 Arthritis; coronary atherosclerosis; diabetes mellitus; Hypertensive disorder; ss Hypothyroidism; - PSHx: 12:25 cataract; Cholecystectomy; Left ankle sx; pacemaker; prostate sx; triple bypass; ss watchman; - Immunization history:: Client reports having NOT received the Covid vaccine. - Infectious Disease History:: Denies. - Family history:: not pertinent. - Social history:: Smoking status: Patient denies any tobacco usage or history of. - Hospitalizations: : No recent hospitalization is reported. Screenin:06 [facility] ED Fall Risk Assessment (Adult) History of falling in the last 3 months, ko1 including since admission Yes- fall prone (multiple falls) (3 pts) Confusion or Disorientation Yes (5 pts) Intoxicated or Sedated No (0 pts) Impaired Gait Yes (1 pt) Mobility Assist Device Used Yes (1 pt) Altered Elimination Yes (1 pt) Score/Fall Risk Level 3 or more points = High Risk Oriented to surroundings, Maintained a safe environment, Educated pt \\T\\ family on fall prevention, incl call for assistance when getting out of bed, Assessed \\T\\ reinforced patient's understanding of fall precautions, Provided non-skid footwear, Hourly rounding (assess needs \\T\\ fall precautionary measures) done, Implemented a Fall Risk Plan of Care, Apply high fall risk patient identification: yellow non skid footwear/ fall signage, Remained w/in arm's length of patient and in sight while toileting, Offered frequent toileting (1:1 observation), Remained with patient while ambulating, Utilized family, sitter, or virtual hat lining paster as indicated. Abuse screen: Denies threats or abuse. Denies injuries from another. Nutritional screening: No deficits noted. Tuberculosis screening: No symptoms or risk factors identified. Assessment: 12:10 Reassessment: Attempted to call to triage. Pt in CT at this time. ss 15:06 General: Appears in no apparent distress. ill, obese, unkempt, Behavior is drowsy. ko1 Pain: Unable to use pain scale. Patient is disoriented. Does not appear to understand pain scale. Neuro: Level of Consciousness is lethargic. Cardiovascular: Rhythm is ventricular pacer. Respiratory: No deficits noted. GI: No deficits noted. : Parent/caregiver report the patient having incontinence. EENT: No deficits noted. Derm: No deficits noted. Musculoskeletal: No deficits noted. 17:20 Reassessment: decreased levophed drip to .05mcg/kg/min due to increase in blood ko1 pressure beyond desirable parameters. 18:52 Reassessment: Pt cleaned of urinary incontinence, brief changed, denies discomfort. jl7 19:25 General: attempted to call report X2 no answer. lg3 19:28 General: per ICU. no one available to take report at this time. lg3 Vital Signs: 12:23 BP 81 / 46; Pulse 76; Resp 18; Temp 99.6(O); Pulse Ox 98% on R/A; Weight 91.63 kg; ss Height 5 ft. 2 in. ; 13:54 BP 80 / 61; Pulse 72; Resp 15; Pulse Ox 97% on R/A; ko1 14:38 BP 91 / 46; Pulse 78; Resp 15; Pulse Ox 98% ; ko1 15:12 BP 114 / 82; rn 15:17 BP 114 / 82; Pulse 72; Resp 17; Pulse Ox 98% ; ko1 16:55 BP 96 / 61; Pulse 77; Resp 20; Pulse Ox 95% on R/A; ko1 17:20 BP 137 / 105; Pulse 98; Resp 19; Pulse Ox 94% on R/A; ko1 17:29 BP 185 / 69; rn 17:34 BP 173 / 100; Pulse 90; Resp 22; Pulse Ox 96% ; ko1 17:43 BP 103 / 53; Pulse 82; Resp 18; Pulse Ox 96% ; ko1 18:03 BP 141 / 72; Pulse 81; Resp 18; Pulse Ox 97% ; ko1 18:11 BP 136 / 60; Pulse 85; Resp 19; Pulse Ox 96% ; ko1 18:51 BP 147 / 62; Pulse 86; Resp 16; Pulse Ox 96% ; ko1 19:21 BP 143 / 66; Pulse 84; Resp 17 S; Pulse Ox 97% on R/A; lg3 12:23 Body Mass Index 36.95 (91.63 kg, 157.48 cm) ED Course: 11:22 Patient arrived in ED. mg5 11:38 Deven Adler MD is Attending Physician. rn 12:13 CT Head C Spine In Process Unspecified. EDMS 12:14 CT Chest Abdomen Pelvis W/O Contrast In Process Unspecified. EDMS 12:25 Triage completed. ss 12:25 Arm band placed on right wrist. ss 13:02 Chest Single View XRAY In Process Unspecified. EDMS 13:20 Ana Persaud, RN is Primary Nurse. jl7 13:48 Blood Culture Adult (2) Sent. ko1 13:48 CMP Sent. ko1 13:48 Lactate w/ 2H reflex if indic. Sent. ko1 13:48 Ptt, Activated Sent. ko1 13:48 Protime (+inr) Sent. ko1 13:48 CBC with Diff Sent. ko1 13:48 No provider procedures requiring assistance completed. Initial lab(s) drawn, by me, ko1 sent to lab. First set of blood cultures drawn by me, Second set of blood cultures drawn by me, EKG done, by ED staff, reviewed by Deven Adler MD. Inserted saline lock: 22 gauge in left forearm, using aseptic technique. Blood collected. Flushed with 10 mL NS. 15:06 Patient has correct armband on for positive identification. Allergy band placed. Bed in ko1 low position. Call light in reach. Provided Education on: call light. Client placed on continuous cardiac and pulse oximetry monitoring. NIBP monitoring applied. supervisor instrument repair on. Door closed. Noise minimized. Lights dimmed. Warm blanket given. Pillow given. 16:45 Sherif Newman is Hospitalizing Provider. rn 17:36 ED physician to see patient. Pt visited by . ko1 18:52 Patient admitted, IV remains in place. ko1 Administered Medications: 13:48 Drug: NS 0.9% IV 1000 ml IV at 1000 ml once; to be given as a bolus over 60 minutes ko1 Route: IV; Rate: 1000 ml; Site: left forearm; 15:18 Follow up: Response: No adverse reaction; IV Status: Completed infusion; IV Intake: ko1 1000ml 14:36 Drug: NS 0.9% IV 500 ml 500 ml IV at 1 bolus once; to be given as a bolus over 30 ko1 minutes Volume: 500 ml; Route: IV; Rate: 1 bolus; Site: left forearm; 15:49 Follow up: Response: No adverse reaction; IV Status: Completed infusion; IV Intake: [id number] 15:28 Drug: Rocephin IV 1 grams IV at calculated rate once; Given slow IV push per pharmacy ko1 instructions Route: IV; Rate: calculated rate; Site: left forearm; 15:48 Follow up: Response: No adverse reaction; IV Status: Completed infusion; IV Intake: [id number] 16:28 Drug: NS 0.9% IV 500 ml 500 ml IV at 1 bolus once; to be given as a bolus over 30 ko1 minutes Volume: 500 ml; Route: IV; Rate: 1 bolus; Site: left forearm; 17:04 Follow up: Response: No adverse reaction; IV Status: Completed infusion; IV Intake: ko1 500ml 17:03 Drug: Norepinephrine IV 0.1 mcg/kg/min IV at calculated rate See Administration ko1 Instructions; (Standard concentration 4 mg / 250 mL D5W); Recommended max rate 3 mcg/kg/min; Titrate 0.05 mcg/kg/min as often as every 5 minutes to achieve goal (see titration policy); Goal parameter MAP greater than 65 mmHg. Route: IV; Rate: calculated rate; Site: right femoral; 17:17 Follow up: Response: Blood sugar is elevated; Rate change 0.05 mcg/kg/min ko1 17:34 Follow up: Rate change 0.02 mcg/kg/min ko1 18:04 Follow up: IV Status: Infusion continued upon admission ko1 Medication: 15:06 VIS not applicable for this client. ko1 Intake: 15:18 IV: 1000ml; Total: 1000ml. ko1 15:48 IV: 10ml; Total: 1010ml. ko1 15:49 IV: 50ml; Total: 1060ml. ko1 17:04 IV: 500ml; Total: 1560ml. ko1 Outcome: 16:46 Decision to Hospitalize by Provider. rn 18:52 Admitted to ER Hold. Please see [facility] for further documentation. ko1 18:52 Condition: stable 18:52 Instructed on the need for admit, 21:07 Patient left the ED. vc1 Signatures: Dispatcher [employer] EDMS Deven Adler MD MD rn Blanchard, Shelby, RN RN ss Ana Persaud RN RN jl7 Shaniqua Curtis RN RN [id number] Osiris Richard RN RN vc1 Rosamaria Pabon RN RN ko1 Berenice Arrington mg5 Corrections: (The following items were deleted from the chart) 13:49 13:48 BASIC METABOLIC PANEL+C.LAB.BRZ drawn and sent. ko1 EDDC
--- NOTE | 2024-05-03 16:46 | EDPHYS ---
Physician Documentation [facility] Name: Lex Henning Age: 84 yrs Sex: Male : 1940 Arrival Date: 05/03/2024 Time: 11:14 Bed 4 Private MD: ED Physician Deven Adler HPI: 05/03 12:23 This 84 yrs old Male presents to ER via Unassigned with complaints of FALLS, CONFUSION. rn 12:23 The patient presents with confusion, decreased responsiveness, disorientation. Onset: rn The symptoms/episode began/occurred 2 day(s) ago. Possible causes: head injury, a direct blow, a fall. Current symptoms: In the emergency department the patient's symptoms are unchanged from the initial presentation. The patient has not experienced similar symptoms in the past. reports patient fell out of his chair while sleeping 2 days ago. Initially was acting okay. Beginning yesterday started to act strange, seems disoriented and slow to respond, not really understanding directions. No vomiting. No chest pain or shortness of breath. No fever or chills otherwise. No bowel or bladder complaints. Usually walks with a walker. No changes in medication.. Historical: - Allergies: 12:25 Cortisone; ss 12:25 PENICILLINS; ss - PMHx: 12:25 Arthritis; coronary atherosclerosis; diabetes mellitus; Hypertensive disorder; ss Hypothyroidism; - PSHx: 12:25 cataract; Cholecystectomy; Left ankle sx; pacemaker; prostate sx; triple bypass; ss watchman; - Immunization history:: Client reports having NOT received the Covid vaccine. - Infectious Disease History:: Denies. - Family history:: not pertinent. - Social history:: Smoking status: Patient denies any tobacco usage or history of. - Hospitalizations: : No recent hospitalization is reported. ROS: 12:23 Constitutional: Negative for fever, chills, and weight loss, Neck: Positive for acute rn and chronic neck pain Cardiovascular: Negative for chest pain, palpitations, and edema, Respiratory: Negative for shortness of breath, cough, wheezing, and pleuritic chest pain, Abdomen/GI: Negative for abdominal pain, nausea, vomiting, diarrhea, and constipation, Back: Negative for injury and pain, MS/Extremity: Negative for injury and deformity, Neuro: Positive for mild headache. Negative for weakness or numbness. No seizure. Exam: 12:23 Constitutional: This is a well developed, well nourished patient who is awake, alert, rn and in no acute distress. Head/Face: Normocephalic, atraumatic. Neck: No midline cervical tenderness Chest/axilla: No rib tenderness or crepitus Cardiovascular: Regular rate and rhythm. No pulse deficits. Respiratory: No increased work of breathing, no retractions or nasal flaring. Abdomen/GI: Soft, non-tender Skin: Bilateral lower extremity erythema MS/ Extremity: Pulses equal, no cyanosis. Neuro: Awake and alert, GCS 15, oriented to person, place, not time. Cranial nerves II-XII grossly intact. Motor strength 4/5 in all extremities. Sensory grossly intact. 15:23 ECG was reviewed by the Attending Physician. rn Vital Signs: 12:23 BP 81 / 46; Pulse 76; Resp 18; Temp 99.6(O); Pulse Ox 98% on R/A; Weight 91.63 kg; ss Height 5 ft. 2 in. ; 13:54 BP 80 / 61; Pulse 72; Resp 15; Pulse Ox 97% on R/A; ko1 14:38 BP 91 / 46; Pulse 78; Resp 15; Pulse Ox 98% ; ko1 15:12 BP 114 / 82; rn 15:17 BP 114 / 82; Pulse 72; Resp 17; Pulse Ox 98% ; ko1 16:55 BP 96 / 61; Pulse 77; Resp 20; Pulse Ox 95% on R/A; ko1 17:20 BP 137 / 105; Pulse 98; Resp 19; Pulse Ox 94% on R/A; ko1 17:29 BP 185 / 69; rn 17:34 BP 173 / 100; Pulse 90; Resp 22; Pulse Ox 96% ; ko1 17:43 BP 103 / 53; Pulse 82; Resp 18; Pulse Ox 96% ; ko1 18:03 BP 141 / 72; Pulse 81; Resp 18; Pulse Ox 97% ; ko1 18:11 BP 136 / 60; Pulse 85; Resp 19; Pulse Ox 96% ; ko1 18:51 BP 147 / 62; Pulse 86; Resp 16; Pulse Ox 96% ; ko1 19:21 BP 143 / 66; Pulse 84; Resp 17 S; Pulse Ox 97% on R/A; lg3 12:23 Body Mass Index 36.95 (91.63 kg, 157.48 cm) ss Procedures: 16:41 Central Line: the site was prepped with Betadine, in sterile fashion, a triple lumen rn catheter was inserted, in the right in 2 attempts. placement was verified, by blood return, the site was dressed with Tegaderm, using sterile technique, the patient tolerated the procedure, well, Used ultrasound guidance for placement. Patient has reversed anatomy, femoral vein is lateral to femoral artery. MDM: 11:39 Medical Screening Exam initiated rn 14:35 ED course: Patient hypotensive, 1 L fluid bolus given. Will give another 500 cc bolus. rn Likely will not get full 30 mL/kg bolus because of history of congestive heart failure and imaging shows pulmonary edema already. Will be giving smaller boluses with reassessment.. 16:44 Differential Diagnosis: sepsis, UTI, volume depletion. Data reviewed: vital signs, rn nurses notes, lab test result(s), radiologic studies, CT scan, and as a result, I will admit patient. Consideration of Admission/Observation Patient was admitted/placed on observation. Escalation of care including admission/observation considered. Counseling: I had a detailed discussion with the patient and/or guardian regarding the historical points, exam findings, and any diagnostic results supporting the discharge/admit diagnosis, lab results, radiology results, the need for further work-up and treatment in the hospital. Response to treatment: the patient's symptoms have mildly improved after treatment, and as a result, I will admit patient. ED course: Patient given 2 L bolus, some response but still hypotensive. Patient likely uroseptic. Blood culture and lactate obtained. Lactate normal. Will not give full 30/kg bolus due to CHF and volume overload status. Decision made to place central line and started Levophed. Sepsis reevaluation complete. 16:44 ED course: I personally spent 35 minutes engaged in work directly related to the rn individual patient's care. This does not include any time spent performing procedures. The patient has been deemed critically ill because of altered mental status requiring septic workup, persistent hypotension in the setting of congestive heart failure and volume overload status, need for central line placement and further resuscitation and admission to ICU.. 17:29 ED course: BP improved, sepsis reevaluation complete. . rn 05/03 11:56 Order name: CBC with Diff; Complete Time: 14:34 rn 05/03 11:56 Order name: Protime (+inr); Complete Time: 14:34 rn 05/03 11:56 Order name: Ptt, Activated; Complete Time: 14:34 rn 05/03 11:56 Order name: Urinalysis w/ reflexes; Complete Time: 16:41 rn 05/03 12:39 Order name: Blood Culture Adult (2) rn 05/03 12:39 Order name: CMP; Complete Time: 14:34 rn 05/03 12:39 Order name: Lactate w/ 2H reflex if indic.; Complete Time: 14:34 rn 05/03 16:32 Order name: Urine Culture EDMS 05/03 11:56 Order name: CT Head C Spine; Complete Time: 13:20 rn 05/03 11:56 Order name: CT Chest Abdomen Pelvis W/O Contrast; Complete Time: 13:20 rn 05/03 12:39 Order name: Chest Single View XRAY; Complete Time: 13:20 rn 05/03 11:56 Order name: IV Start; Complete Time: 13:48 rn 05/03 12:39 Order name: Accucheck; Complete Time: 13:48 rn 05/03 12:39 Order name: Cardiac monitoring; Complete Time: 13:19 rn 05/03 12:39 Order name: EKG - Nurse/Tech; Complete Time: 14:03 rn 05/03 12:39 Order name: IV Saline Lock - Large Bore; Complete Time: 13:48 rn 05/03 12:39 Order name: Labs collected and sent; Complete Time: 13:48 rn 05/03 12:39 Order name: O2 Per Protocol; Complete Time: 13:19 rn 05/03 12:39 Order name: O2 Sat Monitoring; Complete Time: 13:19 rn 05/03 12:39 Order name: Vital Signs; Complete Time: 13:54 rn EC:23 Rate is 72 beats/min. Rhythm is regular. QRS [place] is Normal. [place] interval is normal. QRS rn interval is normal. QT interval is normal. No Q waves. T waves are Normal. No ST changes noted. Clinical impression: Paced rhythm. Interpreted by me. Reviewed by me. Administered Medications: 13:48 Drug: NS 0.9% IV 1000 ml IV at 1000 ml once; to be given as a bolus over 60 minutes ko1 Route: IV; Rate: 1000 ml; Site: left forearm; 15:18 Follow up: Response: No adverse reaction; IV Status: Completed infusion; IV Intake: ko1 1000ml 14:36 Drug: NS 0.9% IV 500 ml 500 ml IV at 1 bolus once; to be given as a bolus over 30 ko1 minutes Volume: 500 ml; Route: IV; Rate: 1 bolus; Site: left forearm; 15:49 Follow up: Response: No adverse reaction; IV Status: Completed infusion; IV Intake: [id number] 15:28 Drug: Rocephin IV 1 grams IV at calculated rate once; Given slow IV push per pharmacy ko1 instructions Route: IV; Rate: calculated rate; Site: left forearm; 15:48 Follow up: Response: No adverse reaction; IV Status: Completed infusion; IV Intake: [id number] 16:28 Drug: NS 0.9% IV 500 ml 500 ml IV at 1 bolus once; to be given as a bolus over 30 ko1 minutes Volume: 500 ml; Route: IV; Rate: 1 bolus; Site: left forearm; 17:04 Follow up: Response: No adverse reaction; IV Status: Completed infusion; IV Intake: ko1 500ml 17:03 Drug: Norepinephrine IV 0.1 mcg/kg/min IV at calculated rate See Administration ko1 Instructions; (Standard concentration 4 mg / 250 mL D5W); Recommended max rate 3 mcg/kg/min; Titrate 0.05 mcg/kg/min as often as every 5 minutes to achieve goal (see titration policy); Goal parameter MAP greater than 65 mmHg. Route: IV; Rate: calculated rate; Site: right femoral; 17:17 Follow up: Response: Blood sugar is elevated; Rate change 0.05 mcg/kg/min ko1 17:34 Follow up: Rate change 0.02 mcg/kg/min ko1 18:04 Follow up: IV Status: Infusion continued upon admission ko1 Disposition: 16:44 Critical Care:. rn Disposition Summary: 05/03/24 16:46 Hospitalization Ordered Notes: Hospitalization Status: Inpatient Admission rn Provider: Sherif Newman rn Location: Intensive Care Unit rn Condition: Stable rn Problem: new rn Symptoms: have improved rn Bed/Room Type: Standard rn Room Assignment: 8-(05/03/24 19:11) vk Diagnosis - Severe sepsis with septic shock rn - UTI/ Urinary tract infection, site not specified rn Forms: - Medication Reconciliation Form rn - SBAR form rn - Leadership Thank You Letter campus interviews intern time excluding procedures: 16:44 Critical care time: Bedside Care: 35 minutes. Total time: 35 minutes rn Signatures: Dispatcher [employer] EDNV Deven Adler MD MD rn Blanchard, Shelby, RN RN ss Attema, Lee, CORPORATE SPECIALIST-C CORPORATE SPECIALIST-Cla1 Rosamaria Pabon, RN RN Carrie Foy Corrections: (The following items were deleted from the chart) 12:40 12:40 BLOOD CULTURE*+BA.LAB.BRZ ordered. EDMS EDMS 12:40 12:40 COMPREHENSIVE METABOLIC PANEL+C.LAB.BRZ ordered. EDMS EDMS 12:40 12:40 LACTATE+C.LAB.BRZ ordered. EDMS EDMS 12:40 12:40 Chest Single View+RAD.RAD.BRZ ordered. EDMS EDMS 12:52 12:23 Constitutional: This is a well developed, well nourished patient who is awake, rn alert, and in no acute distress. Head/Face: Normocephalic, atraumatic. Neck: No midline cervical tenderness Chest/axilla: No rib tenderness or crepitus Cardiovascular: Regular rate and rhythm. No pulse deficits. Respiratory: No increased work of breathing, no retractions or nasal flaring. Abdomen/GI: Soft, non-tender MS/ Extremity: Pulses equal, no cyanosis. Neuro: Awake and alert, GCS 15, oriented to person, place, not time. Cranial nerves II-XII grossly intact. Motor strength 4/5 in all extremities. Sensory grossly intact. rn 13:49 11:57 BASIC METABOLIC PANEL+C.LAB.BRZ ordered. EDMS EDMS 19:11 16:46 rn vk
[2024-05-03] MEDS ORDERED: NOREPINEPHRINE BITARTRATE/D5W 4 MG/250 ML KIT IV ONE (16:47)
--- NOTE | 2024-05-03 17:23 | P.HP ---
Certification for Inpatient Patient admitted to: Inpatient With expected LOS: >2 Midnights Patient will require the following post-hospital care: None Practitioner: I am a practitioner with admitting privileges, knowledge of patient current condition, hospital course, and medical plan of care. Services: Services provided to patient in accordance with Admission requirements found in Title 42 Section 412.3 of the Code of Federal Regulations Patient History Date of Service: 05/03/24 Reason for admission: Septic shock History of Present Illness: 84-year-old male with history of CAD, atrial fibrillation status post Watchman procedure, diabetes mellitus type 2, hypertension, hypothyroidism presents to the emergency department with chief complaint of altered mental status, fall. His at bedside reports has been becoming progressively confused over the course of the last 2 days, he was initially hypotensive upon arrival to the emergency department blood pressure of 81/46 and a temperature of 99.6. Was determined in the ER that he had a urinary tract infection and met criteria for septic shock given his multiple low blood pressure readings. He has a history of CHF given this consideration he was not given the total 30 cc/kg IV fluid bolus instead he was given 1.5 L and started on Levophed. His labs were significant for acute kidney injury, leukocytosis initial lactate was 1.7. Patient is alert, oriented x 2 at this time denies any specific complaints. He does have erythema to bilateral lower extremities with warmth. He is being admitted to the ICU for septic shock secondary to UTI versus cellulitis Allergies cortisone Allergy (Verified 11/29/15 16:57) Rash Penicillins Allergy (Verified 11/29/15 16:57) Rash Home Medications: Hydromorphone HCl [Dilaudid] 4 mg PO DAILYPRN PRN 11/29/15 Magnesium Oxide [Magnesium] 500 mg PO DAILY 11/29/15 Metoprolol Tartrate [Lopressor*] 25 mg PO BID 11/29/15 Pravastatin [Pravachol*] 40 mg PO DAILY 11/29/15 Alendronate Sodium 70 mg PO Q7D 02/04/24 Aspirin Chewable [Aspirin Chewable*] 81 mg PO DAILY 02/04/24 Doxepin HCl [Sinequan*] 25 mg PO BEDTIME 02/04/24 Gabapentin 600 mg PO BID 02/04/24 Insulin Degludec [Tresiba] 34 units SQ DAILY 02/04/24 Torsemide 10 mg PO DAILY 02/04/24 Loperamide [Imodium*] 2 mg PO Q12H PRN #10 cap 02/06/24 Spironolactone [Aldactone*] 25 mg PO DAILY #30 tab 02/06/24 - Past Medical/Surgical History Diabetic: Yes -: CHF -: CAD -: atrial fibrillation -: DM -: HTN -: hypothyroidism -: BPH -: 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 moist/pink Neck: Supple, 2+ carotid pulse no bruit, No LAD Respiratory: Clear to auscultation bilaterally, Normal air movement Cardiovascular: Regular rate/rhythm, Normal S1 S2 Gastrointestinal: Normal bowel sounds, No tenderness Musculoskeletal: No tenderness Integumentary: Tenderness/swelling, Erythema (Bilateral lower extremities) Neurological: Normal speech, Normal strength at 5/5 x4 extr, Normal tone, Normal affect - Studies Laboratory Data (last 24 hrs) 05/03/24 05/03/24 05/03/24 13:35 13:35 13:35 WBC 16.70 H Hgb 11.1 L Hct 33.7 L Plt Count 151 L PT 14.0 H INR 1.26 APTT 29.2 Sodium 137 Potassium 4.2 BUN 43 H Creatinine 1.93 H Glucose 103 Total Bilirubin 1.2 H AST 16 ALT 20 Alkaline Phosphatase 101 05/03/24 11:56 WBC Hgb Hct Plt Count PT INR APTT Sodium Cancelled Potassium Cancelled BUN Cancelled Creatinine Cancelled Glucose Cancelled Total Bilirubin AST ALT Alkaline Phosphatase Assessment and Plan - Plan Assessment: Septic shock secondary to UTI versus bilateral lower extremity cellulitis Acute metabolic encephalopathy secondary to sepsis VINAY secondary to sepsis Chronic diastolic congestive heart failure Atrial fibrillation status post Watchman procedure Diabetes mellitus type 2 History of CAD Plan: Septic shock secondary to UTI versus bilateral lower extremity cellulitis Acute metabolic encephalopathy secondary to sepsis Urinalysis concerning for UTI Urine and blood cultures obtained Continue broad-spectrum attics with vancomycin, Levaquin given penicillin allergy Questionable cellulitis to lower extremities with erythema, warmth present Infectious disease consulted Received 1.5 L bolus given underlying CHF and concern for volume overload Started on Levophed, right femoral central line placed in ED VINAY secondary to sepsis CT negative for obstructive findings Culture consultation placed, continue gentle IV fluids, vasopressors to maintain MAP of 65 Will have Figueroa catheter placed Chronic diastolic congestive heart failure Monitor volume status closely Not grossly overloaded at this time Atrial fibrillation status post Watchman procedure Continue home medications and monitor on telemetry Diabetes mellitus type 2 ACHS Accu-Chek, sliding scale insulin History of CAD Continue home medications DVT PPX: Heparin subcu Code status: Full Discharge Plan: Home Plan to discharge in: Greater than 2 days - Advance Directives Does patient have a Living Will: No Does patient have a Durable POA for Healthcare: No - Code Status/Comfort Care Code Status Assessed: Yes (Full code) Critical Care: No Time Spent Managing Pts Care (In Minutes): 70
[2024-05-03] MEDS ORDERED: ONDANSETRON 4 MG/2 ML VIAL IV PRN (21:48)
[2024-05-03] MEDS ORDERED: ACETAMINOPHEN 325 MG TABLET PO PRN (21:48)
[2024-05-03] MEDS ORDERED: NOREPINEPHRINE 4 MG in D5W 250 ML IV SCH (21:48)
[2024-05-03] MEDS: VANCOMYCIN 1 GM in NA CHLORIDE 0.9% 250 ML IVPB SCH (21:48)
[2024-05-03] MEDS: INSULIN REGULAR (HUMAN) 100 UNIT/ML SQ SCH (21:48)
[2024-05-03] MEDS: VANCOMYCIN 1 GM/VIAL ONE (23:00)
[2024-05-03] MEDS: NA CHLORIDE 0.9% 500 ML ONE (23:00)
[2024-05-03] MEDS: HEPARIN 5000 UNIT/ML 1 ML VIAL SQ SCH (23:17)
[2024-05-03] MEDS: NA CHLORIDE 0.9% 1,000 ML IV SCH (23:17)
[2024-05-03] MEDS: Levofloxacin500mg IV 500 MG/100 ML BAG IV ONE (23:17)
[2024-05-03] MEDS: VANCOMYCIN 2 GM in NA CHLORIDE 0.9% 500 ML IVPB ONE (23:18)
[2024-05-04 05:57] LABS: Absolute Eosinophils 0.2 K/uL (0-0.5); Absolute Lymphocytes (CBC) 2.7 K/uL (0.7-4.9); Absolute Monocytes 0.7 K/uL (0.1-1.3); Absolute Neutrophil 7.1 K/uL (1.8-8.0); Basophils % 0.4 % (0-1.3); Eosinophils % 1.7 % (0-4.4); Hemoglobin 11.4 g/dL (13.6-17.9); MCH 30.9 pg (27.0-35.0); MCHC 34.6 g/dL (32.0-36.0); MCV 89.3 fL (80-100); MPV 7.6 fL (7.6-11.3); Monocytes % 6.1 % (3.3-12.3); Neutrophils % 66.8 % (41.7-73.7); Platelets 133 thou/uL (152-406); RBC Red Blood Cell Count 3.69 M/uL (4.33-5.43); Red Cell Distribution Width 14.8 % (12.1-15.2)
[2024-05-04 06:17] LABS: Albumin 2.7 g/dL (3.4-5.0); Albumin/Globulin Ratio 0.8 (1.1-1.8); Anion Gap 7.9 mEq/L (5.0-15.0); Bilirubin Total 0.8 mg/dL (0.2-1.0); Globulin 3.4 g/dL (2.3-3.5); Magnesium 1.8 mg/dL (1.6-2.4); Phosphorus 2.2 mg/dL (2.5-4.9); Potassium 3.9 mEq/L (3.5-5.1); Protein, Total 6.1 g/dL (6.4-8.2); Thyroid Stimulating Hormone 1.89 uIU/mL (0.358-3.740)
--- NOTE | 2024-05-04 07:57 | P.CNS ---
Date of Consult: 05/04/24 Reason for Consult: VINAY/ CKD Requesting Physician: Georges Adler Chief Complaint: Septic shock History of Present Illness: 84-year-old male with history of CAD, atrial fibrillation status post Watchman procedure, diabetes mellitus type 2, hypertension, hypothyroidism presents to the emergency department with chief complaint of altered mental status, fall. His at bedside reports has been becoming progressively confused over the course of the last 2 days, he was initially hypotensive upon arrival to the emergency department blood pressure of 81/46 and a temperature of 99.6. Was determined in the ER that he had a urinary tract infection and met criteria for septic shock given his multiple low blood pressure readings. He has a history of CHF given this consideration he was not given the total 30 cc/kg IV fluid bolus instead he was given 1.5 L and started on Levophed. His labs were significant for acute kidney injury, leukocytosis initial lactate was 1.7. Patient is alert, oriented x 2 at this time denies any specific complaints. He does have erythema to bilateral lower extremities with warmth. He is being admitted to the ICU for septic shock secondary to UTI versus cellulitis [id number] 12:23 This 84 yrs old Male presents to ER via Unassigned with complaints of FALLS, CONFUSION. rn 12:23 The patient presents with confusion, decreased responsiveness, disorientation. Onset: rn The symptoms/episode began/occurred 2 day(s) ago. Possible causes: head injury, a direct blow, a fall. Current symptoms: In the emergency department the patient's symptoms are unchanged from the initial presentation. The patient has not experienced similar symptoms in the past. reports patient fell out of his chair while sleeping 2 days ago. Initially was acting okay. Beginning yesterday started to act strange, seems disoriented and slow to respond, not really understanding directions. No vomiting. No chest pain or shortness of breath. No fever or chills otherwise. No bowel or bladder complaints. Usually walks with a walker. No changes in medication.. Allergies cortisone Allergy (Verified 11/29/15 16:57) Rash Penicillins Allergy (Verified 11/29/15 16:57) Rash Home medications list reviewed: Yes Home Medications: Magnesium Oxide [Magnesium] 500 mg PO DAILY 11/29/15 Metoprolol Tartrate [Lopressor*] 25 mg PO BID 11/29/15 Pravastatin [Pravachol*] 40 mg PO DAILY 11/29/15 Alendronate Sodium 70 mg PO Q7D 02/04/24 Gabapentin 600 mg PO BID 02/04/24 Torsemide 10 mg PO DAILY 02/04/24 Levothyroxine [Synthroid] 50 mcg PO [id number] 05/04/24 - Past Medical/Surgical History Diabetic: Yes -: CHF -: CAD -: Atrial fibrillation -: DM II -: HTN -: CKD (Dr. 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 -: pacemaker -: Watchman -: 3 vessel CABG -: cholecystectomy -: left ankle surgery -: cataract surgery Psychosocial/ Personal History: - Family History Sister Medical History: Cancer - Social History Alcohol use: No CD- Drugs: No Caffeine use: Yes Place of Residence: Home Review of Systems 10-point ROS is otherwise unremarkable General: Weakness, Malaise Physical Examination Temp Pulse Resp BP Pulse Ox 98.6 F 63 19 116/48 L 95 05/03/24 21:15 05/04/24 06:15 05/04/24 06:15 05/04/24 06:15 05/04/24 06:15 General: In no apparent distress, Oriented x3, Cooperative HEENT: Atraumatic Neck: Supple Respiratory: Normal air movement Cardiovascular: Regular rate/rhythm, Edema Gastrointestinal: Soft and benign, Non-distended Musculoskeletal: No clubbing, No contractures Integumentary: No cyanosis, Erythema Neurological: Normal speech Laboratory Data (last 24 hrs) 05/03/24 05/03/24 05/03/24 13:35 13:35 13:35 WBC 16.70 H Hgb 11.1 L Hct 33.7 L Plt Count 151 L PT 14.0 H INR 1.26 APTT 29.2 Sodium 137 Potassium 4.2 BUN 43 H Creatinine 1.93 H Glucose 103 Total Bilirubin 1.2 H AST 16 ALT 20 Alkaline Phosphatase 101 05/03/24 11:56 WBC Hgb Hct Plt Count PT INR APTT Sodium Cancelled Potassium Cancelled BUN Cancelled Creatinine Cancelled Glucose Cancelled Total Bilirubin AST ALT Alkaline Phosphatase Imagings Data: [id number] EXAMINATION: ONE VIEW CHEST XR CLINICAL INDICATION: AMS TECHNIQUE: Frontal chest projection is submitted. Examination is limited by patient positioning and technique. COMPARISON: 02/04/2024 FINDINGS: Mild bilateral pulmonary edema is suspected. The heart is moderately enlarged in size. Sternotomy wires. Single-lead pacer device. IMPRESSION: Mild CHF versus volume overload pattern is suspected. [id number] EXAM: CT CHEST, ABDOMEN AND PELVIS WITHOUT CONTRAST CLINICAL INDICATION: Male, 84 years old. [facility] MAIN fall, AMS, abd pain, back pain Bed: TECHNIQUE: CT chest, abdomen and pelvis was performed, without IV contrast, as per department protocol. Axial, sagittal and coronal reconstructions were obtained. One or more of the following dose reduction techniques were used: Automated exposure control, adjustment of the mA and/or kV according to the patient size, and/or iterative reconstruction. Unless otherwise specified, incidental findings do not require dedicated imaging follow-up. COMPARISON: CT abdomen and pelvis 02/04/2024 FINDINGS: The lack of intravenous contrast limits the sensitivity of this exam for evaluation of solid visceral organs, vascular structures, and retroperitoneum. Chest: LOWER NECK/CHEST WALL: Visualized thyroid gland and soft tissues are normal. Left chest wall pacer/AICD in place. LUNGS AND AIRWAYS: Airways are clear. No evidence of airspace or interstitial process. Multiple bilateral pulmonary nodules are seen. The largest of these is in the lingular segment measuring 8 mm on axial image 28. Another anterior left upper lobe 3 mm nodule is seen on axial image 25. Right apical para bronchovascular 4 mm nodule seen on axial image 14. Peripheral lower segment right upper lobe 4 mL nodule seen on axial image 23. PLEURA: No pleural effusion. No pneumothorax. Hemidiaphragms are normally positioned. MEDIASTINUM AND LYMPH NODES: No mediastinal mass or fluid collection. Normal size mediastinal, hilar, and axillary lymph nodes. Left atrial appendage occlusion device in place. THORACIC AORTA: Normal caliber and configuration. PULMONARY ARTERIES: Normal caliber. HEART: Unremarkable. Abdomen/Pelvis LIVER: Normal in size and contour. No focal lesion. GALLBLADDER/BILE DUCTS: Status post cholecystectomy PANCREAS: No mass, ductal dilation, or popeye-pancreatic fluid. SPLEEN: Normal size. No focal lesion. ADRENALS: Normal; no mass. KIDNEYS AND URETERS: Normal size and contour. No hydronephrosis. Exophytic left upper to midpole 5.2 cm cyst and other smaller right lower pole exophytic cysts are grossly stable. GASTROINTESTINAL TRACT: Stomach is non-dilated. Small bowel has normal course and caliber. No colonic wall thickening or pericolonic inflammatory changes. PERITONEUM: No free fluid. LYMPH NODES: No lymphadenopathy. ABDOMINAL AORTA AND OTHER VESSELS: Normal caliber aorta and IVC. URINARY BLADDER: Decompressed, limiting evaluation. REPRODUCTIVE ORGANS: No pathologic process. MUSCULOSKELETAL: No acute or suspicious osseous abnormality. ADDITIONAL FINDINGS: Bilateral small inguinal hernias containing fat. IMPRESSION: No acute or significant abnormalities in the chest, abdomen, or pelvis. Bilateral pulmonary nodules incidentally noted, largest measuring 8 mm in the left lingular segment. 2017 Fleischner Society Recommendations for Lung Nodule(s): Follow-Up based on size (average of long- and short-axis diameters). Use most suspicious nodule for followup. If patient is low risk, recommend a non-contrast chest CT at 3-6 months, then consider another non-contrast chest CT at 18-24 months. If patient is high risk, recommend a non-contrast chest CT at 3-6 months, then another non-contrast chest CT at 18-24 months, if stable. These guidelines do not apply to patients younger than 35 years, immun ocompromised patients, and patients with cancer. F/u in patients with significant comorbidities as clinically warranted. For lung cancer screening, adhere to Lung-RADS guidelines. [id number] EXAM: CT brain without contrast HISTORY: fall, head injury, AMS COMPARISON: None TECHNIQUE: Multiple contiguous axial images were obtained and a CT of the brain without contrast. Sagittal and coronal reformats were performed. FINDINGS: No evidence of hydrocephalus, intracranial hemorrhage, or extra-axial fluid collection. The brain is normal in morphology. The calvarium is intact. The visualized paranasal sinuses and mastoid air cells are essentially clear. IMPRESSION: No evidence of acute intracranial abnormality. EXAM: CT of the cervical spine without contrast HISTORY: fall, head injury, AMS COMPARISON: None TECHNIQUE: Multiple contiguous axial images were obtained in a CT of the cervical spine without contrast. Sagittal and coronal reformats were performed. FINDINGS: The vertebral bodies demonstrate normal height and alignment. No evidence of acute fracture or subluxation. Nonunited fractures along the spinous processes of C6 and C7, with corticated margins, suggesting remote fractures. No degenerative changes are present. No prevertebral soft tissue swelling is seen. The posterior facets are well aligned. Normal alignment of the skull base with the cervical spine is seen. RADIOLOGY SERVICES REPORT (Continued) Name: ZE LAGUNAS CC: Luis Eduardo Jeffries DO; Deven Adler JR, MD, JAMES HOWARD / Report: [id number] Radiology Services Report Page 2 of 2 The lung apices are unremarkable. IMPRESSION: No evidence of acute osseous abnormality of the cervical spine. Remote appearing fractures of the spinous processes of C6 and C7. [id number] LEFT VENTRICULAR WALL MOTION: NORMAL DOPPLER/COLOR FLOW: SEE BELOW COMMENTS: 1. NORMAL LEFT VENTRICULAR EJECTION FRACTION 55-60% WITH NORMAL WALL MOTION 2. DIASTOLIC DYSFUNCTION AT LEAST MODERATE 3. MODERATE TRICUSPID REGURGITATION 4. LEFT ATRIAL ENLARGEMENT 5. PULMONARY HYPERTENSION WITH RIGHT VENTRICULAR SYSTOLIC PRESSURE OF 45 mmHg PLUS RIGHT ATRIAL PRESSURE Conclusions/Impression: Stage I VINAY in the setting of sepsis CKD III -No NSAIDs -Change IVF to 1/2NS -IVF bolus prn Hypophosphatemia -Encourage nutrition as tolerated Septic Shock with unclear source -IVF bolus prn -Continue Abx -Follow up cx Diastolic CHF, chronic -Daily weight -Hold Torsemide DM II with CKD & Polyneuropathy -RISS Anemia in chronic illness -Monitor H&H Hospitalist and ER notes reviewed Case reviewed with the hospitalist team Thank you kindly for the consultation Critical Care: Yes (35min)
--- NOTE | 2024-05-04 11:53 | RAD REPORT ---
EXAMINATION: US RENAL CLINICAL INDICATION: Acute renal insufficiency TECHNIQUE: Real-time ultrasonography of the kidneys performed. COMPARISON: 2015. FINDINGS: Right kidney measures 11 cm with a mildly increased echotexture. It contains a couple of cysts. Large st 1.5 cm. Left kidney measures 11 cm with a mildly increased echotexture. It contains a couple of cysts. Larges t 4.7 cm. No hydronephrosis No gross abnormality bladder. IMPRESSION: Mildly increased renal echotexture may indicate parenchymal disease. Bilateral renal cysts No hydronephrosis
--- NOTE | 2024-05-04 12:20 | EKG ---
Test Date: 2024-05-03 Test Time: 13:59:59 [employer] Manager: RACHEAL MEASUREMENT RESULTS: Intervals: Rate: 72 IN: QRSD: 160 QT: 452 QTc: 494 [place]: P: IN: QRS: -85 T: 92 INTERPRETIVE STATEMENTS: Electronic ventricular pacemaker Compared to ECG 02/04/2024 08:34:54 Myocardial infarct finding no longer present T-wave abnormality no longer present Possible ischemia no longer present Electronically Signed On 05-04-24 12:17:05 LICENSED EMBALMER by Vikash Barclay
--- NOTE | 2024-05-04 13:55 | P.PN ---
Date of Service: 05/04/24 subjective: Awake, mental status improved Denies any specific complaints No acute events overnight Weaned off Levophed this morning at 05 45 ROS: 10 point ROS as noted above, otherwise negative Physical exam GEN: Alert, oriented, NAD HEENT: Normal conjunctiva, sclera anicteric CV: Regular rate and rhythm, no edema Pulm: Nonlabored respirations on room air ABD: Soft, nontender, nondistended MSK: No joint tenderness Integumentary: Erythema to bilateral lower extremities in the slade area Neuro: Normal speech, normal affect Vitals reviewed Assessment: Septic shock secondary to UTI versus bilateral lower extremity cellulitis Acute metabolic encephalopathy secondary to sepsis VINAY secondary to sepsis Chronic diastolic congestive heart failure Atrial fibrillation status post Watchman procedure Diabetes mellitus type 2 History of CAD Plan: Septic shock secondary to UTI versus bilateral lower extremity cellulitis Acute metabolic encephalopathy secondary to sepsis Urinalysis concerning for UTI Urine and blood cultures obtained Blood cultures with no growth in 24 hours Continue broad-spectrum antibiotics with vancomycin, Levaquin given penicillin allergy Questionable cellulitis to lower extremities with erythema, warmth present Infectious disease consulted Received 1.5 L bolus given underlying CHF and concern for volume overload Started on Levophed, right femoral central line placed in ED Off of Levophed 11/5 AM VINAY secondary to sepsis CT negative for obstructive findings Nephrology consulted, following Renal function improving, continue gentle IV fluids Chronic diastolic congestive heart failure Monitor volume status closely Not grossly overloaded at this time Atrial fibrillation status post Watchman procedure Continue home medications and monitor on telemetry Diabetes mellitus type 2 ACHS Accu-Chek, sliding scale insulin History of CAD Continue home medications DVT PPX: Heparin subcu Code status: Full Discharge Plan: Home Plan to discharge in: Greater than 2 days Time Spent Managing Pts Care (In Minutes): 35
[2024-05-04 15:59] VITALS: O2SAT 97
[2024-05-04] MEDS ORDERED: VANCOMYCIN 1.75 GM in NA CHLORIDE 0.9% 500 ML IVPB SCH (17:00)
[2024-05-04] MEDS ORDERED: Levofloxacin 250mg IV 250 MG/50 ML BAG IV SCH (23:00)
[2024-05-04] MEDS: NACHLORIDE 0.45% 1,000 ML IV SCH (23:45)
[2024-05-05 06:10] LABS: Absolute Lymphocytes (CBC) 1.4 K/uL (0.7-4.9); Absolute Monocytes 0.5 K/uL (0.1-1.3); Absolute Neutrophil 7.4 K/uL (1.8-8.0); Basophils % 0.2 % (0-1.3); Eosinophils % 0.4 % (0-4.4); Hematocrit 31.4 % (39.6-49.0); Hemoglobin 10.7 g/dL (13.6-17.9); Lymphocytes % 14.8 % (15.3-44.8); MCH 30.4 pg (27.0-35.0); MCHC 34.1 g/dL (32.0-36.0); MCV 89.1 fL (80-100); MPV 8.2 fL (7.6-11.3); Monocytes % 5.4 % (3.3-12.3); Neutrophils % 79.2 % (41.7-73.7); Nucleated Red Blood Cells % 0.1 % (0-0); Platelets 121 thou/uL (152-406); RBC Red Blood Cell Count 3.53 M/uL (4.33-5.43); Red Cell Distribution Width 14.5 % (12.1-15.2)
[2024-05-05 06:33] LABS: Albumin 2.6 g/dL (3.4-5.0); Albumin/Globulin Ratio 0.8 (1.1-1.8); Anion Gap 9.7 mEq/L (5.0-15.0); Globulin 3.4 g/dL (2.3-3.5); Magnesium 1.8 mg/dL (1.6-2.4); Phosphorus 2.1 mg/dL (2.5-4.9); Potassium 3.7 mEq/L (3.5-5.1)
--- NOTE | 2024-05-05 08:55 | P.PN ---
Date of Service: 05/05/24 subjective: Awake, mental status improved Denies any specific complaints No acute events overnight Improving ROS: 10 point ROS as noted above, otherwise negative Physical exam GEN: Alert, oriented, NAD HEENT: Normal conjunctiva, sclera anicteric CV: Regular rate and rhythm, no edema Pulm: Nonlabored respirations on room air ABD: Soft, nontender, nondistended MSK: No joint tenderness Integumentary: Erythema to bilateral lower extremities in the slade area Neuro: Normal speech, normal affect Vitals reviewed Assessment: Septic shock secondary to UTI versus bilateral lower extremity cellulitis Acute metabolic encephalopathy secondary to sepsis VINAY secondary to sepsis Chronic diastolic congestive heart failure Atrial fibrillation status post Watchman procedure Diabetes mellitus type 2 History of CAD Plan: Septic shock secondary to UTI versus bilateral lower extremity cellulitis-doubt cellulitis Acute metabolic encephalopathy secondary to sepsis Urinalysis concerning for UTI Urine and blood cultures obtained Blood cultures with no growth in 24 hours Antibiotics de-escalated to just Levaquin after urine culture shows Klebsiella sensitive to Levaquin Questionable cellulitis to lower extremities with erythema, warmth present-doubt cellulitis at this time Infectious disease consulted Received 1.5 L bolus given underlying CHF and concern for volume overload Started on Levophed, right femoral central line placed in ED Off of Levophed 11/5 AM PT consult placed VINAY secondary to sepsis CT negative for obstructive findings Nephrology consulted, following Renal function improving, continue gentle IV fluids-renal function improved Off IV fluids Chronic diastolic congestive heart failure Monitor volume status closely Not grossly overloaded at this time Atrial fibrillation status post Watchman procedure Continue home medications and monitor on telemetry Diabetes mellitus type 2 ACHS Accu-Chek, sliding scale insulin History of CAD Continue home medications DVT PPX: Heparin subcu Code status: Full Discharge Plan: Home Plan to discharge in: Greater than 2 days Time Spent Managing Pts Care (In Minutes): 35
[2024-05-05] MEDS: METOPROLOL TAR 25 MG TAB PO SCH (09:15)
[2024-05-05] MEDS ORDERED: VANCOMYCIN 1.5 GM in NA CHLORIDE 0.9% 500 ML IVPB SCH (11:00)
[2024-05-05] MEDS: Levofloxacin 750mg IV 750 MG/150 ML BAG IV SCH (16:53)
--- NOTE | 2024-05-05 17:32 | CON ---
Date of Consultation: 05/04/2024 The patient was consulted for evaluation of septic shock secondary to urinary tract infection versus cellulitis. The patient has significant past medical history of coronary artery disease, atrial fibr illation, status post Watchman procedure, diabetes mellitus type 2, hypertension, hypothyroidism, com ing into the hospital with altered mental status and temperature of 99 and blood pressure of 81/46. Urine cultures are growing gram-negative rods. The patient has been on quinolones and vancomycin. T he patient denies any headache, nausea, vomiting, chest pain, abdominal pain, constipation, or diarrh ea. Feels much better today, in the ICU. Past Medical History: As per HPI. Social History: Nonsmoker, nondrinker. Family History: Noncontributory. Medications: See [facility] for medication. Allergies: PENICILLIN AND CORTISONE. Review of Systems: 10-point review was performed. Physical Examination: General: This is an 84-year-old male, lying in bed, not in any acute cardiopulmonary distress. Vital Signs: Temperature 97.9, pulse 77, respirations 26, blood pressure 145/68. HEENT: Unremarkable. Neck: Supple. Lungs: Basal crackles. Heart: S1, S2, regular. Abdomen: Soft, nontender. Bowel sounds present. Extremities: No edema. Lab: WBC 10.7, hemoglobin 11.4, platelets are 133. Chemistry shows BUN of 42, creatinine 1.4. Micr o data shows urine cultures growing gram-negative rods. Assessment And Plan: Urosepsis in an 84-year-old male. Recommend to start quinolone IV for 7 days. Can be switched to oral. Discontinue vancomycin. Continue to monitor signs of infection with WBC a nd fever trends. Altered mental status improved. Blood culture has been negative. We will continue to monitor the patient closely. Multiple medical problems including leukocytosis, which has improve d. Renal insufficiency improving. Anemia of chronic disease. Thrombocytopenia. We will follow the patient closely. Thank you for consult. ANTIONE/SHIRA Voice ID: [id number] Report ID: [id number]
[2024-05-05] MEDS: ATORVASTATIN 10 MG TAB PO SCH (20:48)
[2024-05-05] MEDS ORDERED: Levofloxacin500mg IV 500 MG/100 ML BAG IV SCH (21:00)
--- NOTE | 2024-05-05 21:33 | P.PN ---
Date of Service: 05/05/24 Vital Signs Temp Pulse Resp BP Pulse Ox 98.5 F 87 18 159/76 H 95 05/05/24 20:00 05/05/24 20:49 05/05/24 20:00 05/05/24 20:49 05/05/24 20:00 Medications Acetaminophen (Acetaminophen 325 Mg Tablet) 650 mg PO Q4HP PRN PRN Reason: TEMP > 100' F Atorvastatin Calcium (Atorvastatin 10 Mg Tab) 10 mg PO BEDTIME PENDING SALE TO [facility] Last Admin: 05/05/24 20:48 Dose: 10 mg Heparin Sodium (Porcine) (Heparin 5000 Unit/Ml 1 Ml Vial) 5,000 unit SQ Q12HR PENDING SALE TO [facility] Last Admin: 05/05/24 20:49 Dose: 5,000 unit Levofloxacin/Dextrose (Levaquin 750 Mg/150 Ml Ivpb (Premix)) 750 mg in 150 mls @ 100 mls/hr IV Q48H PENDING SALE TO [facility] Last Admin: 05/05/24 16:53 Dose: 150 mls Insulin Human Regular (Insulin Regular (Human) 100 Unit/Ml) 0 unit SQ ACHS PENDING SALE TO [facility]; Protocol Last Admin: 05/05/24 20:34 Dose: Not Given Levothyroxine Sodium (Levothyroxine Sod 0.05 Mg Tablet) 0.05 mg PO [id number] PENDING SALE TO [facility] Metoprolol Tartrate (Metoprolol Tar 25 Mg Tab) 25 mg PO BID PENDING SALE TO [facility] Last Admin: 05/05/24 20:49 Dose: 25 mg Ondansetron HCl (Ondansetron 4 Mg/2 Ml Vial) 4 mg IV Q6HP PRN PRN Reason: NAUSEA / VOMITING Microbiology Results 05/03/24 15:45 Clean Catch Urine [place] Count - Final >100,000 CFU/ML. 05/03/24 15:45 Clean Catch Urine - Final Klebsiella Pneumoniae 05/03/24 13:35 Blood - Blood Aerobic Blood Culture - Preliminary No growth in 24 hours. 05/03/24 13:35 Blood - Blood Anaerobic Blood Culture - Preliminary No growth in 24 hours. 05/03/24 13:45 Blood - Blood Aerobic Blood Culture - Preliminary No growth in 24 hours. 05/03/24 13:45 Blood - Blood Anaerobic Blood Culture - Preliminary No growth in 24 hours. Assessment/ Plan: Nephrology No dyspnea No chest pain Feeling better No acute events overnight Vitals, medications, blood work and imaging reviewed in the chart General: In no apparent distress, Oriented x3, Cooperative HEENT: Atraumatic Neck: Supple Respiratory: Normal air movement Cardiovascular: Regular rate/rhythm, Edema Gastrointestinal: Soft and benign, Non-distended Musculoskeletal: No clubbing, No contractures Integumentary: No cyanosis, Erythema Neurological: Normal speech Laboratory Data (last 24 hrs) 05/03/24 05/03/24 05/03/24 13:35 13:35 13:35 WBC 16.70 H Hgb 11.1 L Hct 33.7 L Plt Count 151 L PT 14.0 H INR 1.26 APTT 29.2 Sodium 137 Potassium 4.2 BUN 43 H Creatinine 1.93 H Glucose 103 Total Bilirubin 1.2 H AST 16 ALT 20 Alkaline Phosphatase 101 05/03/24 11:56 WBC Hgb Hct Plt Count PT INR APTT Sodium Cancelled Potassium Cancelled BUN Cancelled Creatinine Cancelled Glucose Cancelled Total Bilirubin AST ALT Alkaline Phosphatase Imagings Data: [id number] EXAMINATION: ONE VIEW CHEST XR CLINICAL INDICATION: AMS TECHNIQUE: Frontal chest projection is submitted. Examination is limited by patient positioning and technique. COMPARISON: 02/04/2024 FINDINGS: Mild bilateral pulmonary edema is suspected. The heart is moderately enlarged in size. Sternotomy wires. Single-lead pacer device. IMPRESSION: Mild CHF versus volume overload pattern is suspected. [id number] EXAM: CT CHEST, ABDOMEN AND PELVIS WITHOUT CONTRAST CLINICAL INDICATION: Male, 84 years old. [facility] MAIN fall, AMS, abd pain, back pain Bed: TECHNIQUE: CT chest, abdomen and pelvis was performed, without IV contrast, as per department protocol. Axial, sagittal and coronal reconstructions were obtained. One or more of the following dose reduction techniques were used: Automated exposure control, adjustment of the mA and/or kV according to the patient size, and/or iterative reconstruction. Unless otherwise specified, incidental findings do not require dedicated imaging follow-up. COMPARISON: CT abdomen and pelvis 02/04/2024 FINDINGS: The lack of intravenous contrast limits the sensitivity of this exam for evaluation of solid visceral organs, vascular structures, and retroperitoneum. Chest: LOWER NECK/CHEST WALL: Visualized thyroid gland and soft tissues are normal. Left chest wall pacer/AICD in place. LUNGS AND AIRWAYS: Airways are clear. No evidence of airspace or interstitial process. Multiple bilateral pulmonary nodules are seen. The largest of these is in the lingular segment measuring 8 mm on axial image 28. Another anterior left upper lobe 3 mm nodule is seen on axial image 25. Right apical para bronchovascular 4 mm nodule seen on axial image 14. Peripheral lower segment right upper lobe 4 mL nodule seen on axial image 23. PLEURA: No pleural effusion. No pneumothorax. Hemidiaphragms are normally positioned. MEDIASTINUM AND LYMPH NODES: No mediastinal mass or fluid collection. Normal size mediastinal, hilar, and axillary lymph nodes. Left atrial appendage occlusion device in place. THORACIC AORTA: Normal caliber and configuration. PULMONARY ARTERIES: Normal caliber. HEART: Unremarkable. Abdomen/Pelvis LIVER: Normal in size and contour. No focal lesion. GALLBLADDER/BILE DUCTS: Status post cholecystectomy PANCREAS: No mass, ductal dilation, or popeye-pancreatic fluid. SPLEEN: Normal size. No focal lesion. ADRENALS: Normal; no mass. KIDNEYS AND URETERS: Normal size and contour. No hydronephrosis. Exophytic left upper to midpole 5.2 cm cyst and other smaller right lower pole exophytic cysts are grossly stable. GASTROINTESTINAL TRACT: Stomach is non-dilated. Small bowel has normal course and caliber. No colonic wall thickening or pericolonic inflammatory changes. PERITONEUM: No free fluid. LYMPH NODES: No lymphadenopathy. ABDOMINAL AORTA AND OTHER VESSELS: Normal caliber aorta and IVC. URINARY BLADDER: Decompressed, limiting evaluation. REPRODUCTIVE ORGANS: No pathologic process. MUSCULOSKELETAL: No acute or suspicious osseous abnormality. ADDITIONAL FINDINGS: Bilateral small inguinal hernias containing fat. IMPRESSION: No acute or significant abnormalities in the chest, abdomen, or pelvis. Bilateral pulmonary nodules incidentally noted, largest measuring 8 mm in the left lingular segment. 2017 Fleischner Society Recommendations for Lung Nodule(s): Follow-Up based on size (average of long- and short-axis diameters). Use most suspicious nodule for followup. If patient is low risk, recommend a non-contrast chest CT at 3-6 months, then consider another non-contrast chest CT at 18-24 months. If patient is high risk, recommend a non-contrast chest CT at 3-6 months, then another non-contrast chest CT at 18-24 months, if stable. These guidelines do not apply to patients younger than 35 years, immunocompromised patients, and patients with cancer. F/u in patients with significant comorbidities as clinically warranted. For lung cancer screening, adhere to Lung-RADS guidelines. [id number] EXAM: CT brain without contrast HISTORY: fall, head injury, AMS COMPARISON: None TECHNIQUE: Multiple contiguous axial images were obtained and a CT of the brain without contrast. Sagittal and coronal reformats were performed. FINDINGS: No evidence of hydrocephalus, intracranial hemorrhage, or extra-axial fluid col lection. The brain is normal in morphology. The calvarium is intact. The visualized paranasal sinuses and mastoid air cells are essentially clear. IMPRESSION: No evidence of acute intracranial abnormality. EXAM: CT of the cervical spine without contrast HISTORY: fall, head injury, AMS COMPARISON: None TECHNIQUE: Multiple contiguous axial images were obtained in a CT of the cervical spine without contrast. Sagittal and coronal reformats were performed. FINDINGS: The vertebral bodies demonstrate normal height and alignment. No evidence of acute fracture or subluxation. Nonunited fractures along the spinous processes of C6 and C7, with corticated margins, suggesting remote fractures. No degenerative changes are present. No prevertebral soft tissue swelling is seen. The posterior facets are well aligned. Normal alignment of the skull base with the cervical spine is seen. RADIOLOGY SERVICES REPORT (Continued) Name: ZE LAGUNAS CC: Luis Eduardo Jeffries DO; Deven Adler JR, MD, JAMES HOWARD / Report: [id number] Radiology Services Report Page 2 of 2 The lung apices are unremarkable. IMPRESSION: No evidence of acute osseous abnormality of the cervical spine. Remote appearing fractures of the spinous processes of C6 and C7. [id number] LEFT VENTRICULAR WALL MOTION: NORMAL DOPPLER/COLOR FLOW: SEE BELOW COMMENTS: 1. NORMAL LEFT VENTRICULAR EJECTION FRACTION 55-60% WITH NORMAL WALL MOTION 2. DIASTOLIC DYSFUNCTION AT LEAST MODERATE 3. MODERATE TRICUSPID REGURGITATION 4. LEFT ATRIAL ENLARGEMENT 5. PULMONARY HYPERTENSION WITH RIGHT VENTRICULAR SYSTOLIC PRESSURE OF [address] RIGHT ATRIAL PRESSURE Conclusions/Impression: Stage I VINAY in the setting of sepsis CKD III -No NSAIDs -IVF bolus prn Hypophosphatemia -Encourage nutrition as tolerated -Replete prn Septic Shock Acute Klebsiella Cystitis with hematuria -IVF bolus prn -Continue Abx Diastolic CHF, chronic -Daily weight -Hold Torsemide DM II with CKD & Polyneuropathy -RISS Anemia in chronic illness -Monitor H&H Hospitalist note reviewed Case reviewed with the hospitalist team
--- NOTE | 2024-05-06 01:27 | PN ---
Date of Progress Note: 05/05/2024 Subjective: The patient is lying in bed. Denies any headache, nausea, vomiting, chest pain, abdomin al pain, constipation, diarrhea. is at the bedside. Objective: Vital Signs: Temperature 98, pulse 74, respiration 20, blood pressure 175/84. Lungs: Basal crackles. Heart: S1, S2. Regular. Abdomen: Soft, nontender. Bowel sounds present. Extremities: No edema. Laboratory Data: WBC 9.4, hemoglobin 10.7, platelets 121. BUN of 24, creatinine 1.24. Albumin leve l is 2.6. Assessment And Plan: Urosepsis. Altered mental status, improving. Leukocytosis, improving. Contin ue antibiotic and supportive care. Micro data is growing Klebsiella pneumoniae. Blood cultures are negative to date. Anemia of chronic disease. Moderate protein-calorie malnourishment. Continue supportive care and total antibiotic course of 7 d ays. We will follow the patient as needed. NF/MODL Voice ID: [id number] Report ID: [id number]
[2024-05-06] MEDS: LEVOTHYROXINE SOD 0.05 MG TABLET PO SCH (05:46)
[2024-05-06 06:54] LABS: Absolute Eosinophils 0.1 K/uL (0-0.5); Absolute Lymphocytes (CBC) 1.2 K/uL (0.7-4.9); Absolute Monocytes 0.7 K/uL (0.1-1.3); Absolute Neutrophil 5.6 K/uL (1.8-8.0); Basophils % 0.2 % (0-1.3); Eosinophils % 0.8 % (0-4.4); Hematocrit 28.3 % (39.6-49.0); Hemoglobin 9.6 g/dL (13.6-17.9); Lymphocytes % 16.1 % (15.3-44.8); MCH 30.3 pg (27.0-35.0); MCHC 33.9 g/dL (32.0-36.0); MCV 89.5 fL (80-100); MPV 8.7 fL (7.6-11.3); Monocytes % 8.8 % (3.3-12.3); Neutrophils % 74.1 % (41.7-73.7); Nucleated Red Blood Cells % 0.1 % (0-0); Platelets 112 thou/uL (152-406); RBC Red Blood Cell Count 3.17 M/uL (4.33-5.43); Red Cell Distribution Width 14.6 % (12.1-15.2)
[2024-05-06 07:14] LABS: Albumin 2.4 g/dL (3.4-5.0); Albumin/Globulin Ratio 0.7 (1.1-1.8); Anion Gap 8.6 mEq/L (5.0-15.0); Bilirubin Total 1.3 mg/dL (0.2-1.0); Globulin 3.4 g/dL (2.3-3.5); Magnesium 1.8 mg/dL (1.6-2.4); Phosphorus 1.7 mg/dL (2.5-4.9); Potassium 3.6 mEq/L (3.5-5.1); Protein, Total 5.8 g/dL (6.4-8.2)
[2024-05-06 07:35] VITALS: BMI 36.0
[2024-05-06] MEDS: POTASS/SODIUM PHOSPHATE 1 PKT POWD.PACK PO ONE (13:15)
[2024-05-06] MEDS: POTASSIUM CL SA 10 MEQ TAB PO ONE (13:15)
--- NOTE | 2024-05-06 14:07 | P.PN ---
Date of Service: 05/06/24 subjective: Awake, some confusion, repetitive speech today Otherwise doing well, improving ROS: 10 point ROS as noted above, otherwise negative Physical exam GEN: Alert, oriented x2, NAD HEENT: Normal conjunctiva, sclera anicteric CV: Regular rate and rhythm, no edema Pulm: Nonlabored respirations on room air ABD: Soft, nontender, nondistended MSK: No joint tenderness Integumentary: Erythema to bilateral lower extremities in the slade area Neuro: Normal speech, normal affect Vitals reviewed Assessment: Septic shock secondary to UTI versus bilateral lower extremity cellulitis Acute metabolic encephalopathy secondary to sepsis VINAY secondary to sepsis Chronic diastolic congestive heart failure Atrial fibrillation status post Watchman procedure Diabetes mellitus type 2 History of CAD Plan: Septic shock secondary to UTI versus bilateral lower extremity cellulitis-doubt cellulitis Acute metabolic encephalopathy secondary to sepsis Urinalysis concerning for UTI Urine and blood cultures obtained Blood cultures with no growth in 24 hours Antibiotics de-escalated to just Levaquin after urine culture shows Klebsiella sensitive to Levaquin Questionable cellulitis to lower extremities with erythema, warmth present-doubt cellulitis at this time Infectious disease consulted Received 1.5 L bolus given underlying CHF and concern for volume overload Started on Levophed, right femoral central line placed in ED Off of Levophed 05/04 AM PT consult placed-worked well with PT 05/05 Was planning to DC today but patient became more globally confused reports 2-3 years of intermittent symptoms with short term memory issues Reports worse now than before Exam non focal, seems encephalopathic CT head ordered to evaluate AMS Repeat labs in AM Continue PT during stay VINAY secondary to sepsis-improving CT negative for obstructive findings Nephrology consulted, following renal function improved Off IV fluids Discussed torsemide with nephrology Plan to hold torsemide at discharge until follow-up with nephrology or if patient develops signs of volume overload Chronic diastolic congestive heart failure Monitor volume status closely Not grossly overloaded at this time Atrial fibrillation status post Watchman procedure Continue home medications and monitor on telemetry Diabetes mellitus type 2 ACHS Accu-Chek, sliding scale insulin History of CAD Continue home medications DVT PPX: Heparin subcu Code status: Full Discharge Plan: Home Plan to discharge in: 1 day Time Spent Managing Pts Care (In Minutes): 35
--- NOTE | 2024-05-06 17:59 | RAD REPORT ---
EXAM: CT Head Brain Wo Cont HISTORY: AMS, repetitive speech, confused from baseline COMPARISON: 08/14/2021 TECHNIQUE: Multiple contiguous axial images were obtained for a CT of the brain without contrast. Sag ittal and coronal reformats were performed. One or more of the following dose reduction techniques were used: Automated exposure control, adjus tment of the mA and kV according to patient size, and iterative reconstruction. Unless otherwise specified, incidental findings do not require dedicated imaging follow-up. FINDINGS: No evidence of hydrocephalus, intracranial hemorrhage, or extra-axial fluid collection. Moderate brain atrophy with moderate periventricular and deep white matter chronic microvascular isc hemic changes present. The calvarium is intact. The visualized paranasal sinuses and mastoid air cells are essentially clear . IMPRESSION: No evidence of acute intracranial abnormality.
--- NOTE | 2024-05-06 21:41 | P.PN ---
Date of Service: 05/06/24 Vital Signs Temp Pulse Resp BP Pulse Ox 98.6 F 72 16 160/78 H 93 05/06/24 16:00 05/06/24 21:22 05/06/24 16:00 05/06/24 21:22 05/06/24 16:00 Medications Acetaminophen (Acetaminophen 325 Mg Tablet) 650 mg PO Q4HP PRN PRN Reason: TEMP > 100' F Atorvastatin Calcium (Atorvastatin 10 Mg Tab) 10 mg PO BEDTIME [facility] Last Admin: 05/06/24 21:22 Dose: 10 mg Heparin Sodium (Porcine) (Heparin 5000 Unit/Ml 1 Ml Vial) 5,000 unit SQ Q12HR [facility] Last Admin: 05/06/24 21:23 Dose: 5,000 unit Levofloxacin/Dextrose (Levaquin 750 Mg/150 Ml Ivpb (Premix)) 750 mg in 150 mls @ 100 mls/hr IV Q48H [facility] Last Admin: 05/05/24 16:53 Dose: 150 mls Insulin Human Regular (Insulin Regular (Human) 100 Unit/Ml) 0 unit SQ ACHS [facility]; Protocol Last Admin: 05/06/24 20:15 Dose: Not Given Levothyroxine Sodium (Levothyroxine Sod 0.05 Mg Tablet) 0.05 mg PO [id number] [facility] Last Admin: 05/06/24 05:46 Dose: 0.05 mg Metoprolol Tartrate (Metoprolol Tar 25 Mg Tab) 25 mg PO BID [facility] Last Admin: 05/06/24 21:22 Dose: 25 mg Ondansetron HCl (Ondansetron 4 Mg/2 Ml Vial) 4 mg IV Q6HP PRN PRN Reason: NAUSEA / VOMITING Microbiology Results 05/03/24 15:45 Clean Catch Urine [place] Count - Final >100,000 CFU/ML. 05/03/24 15:45 Clean Catch Urine - Final Klebsiella Pneumoniae 05/03/24 13:35 Blood - Blood Aerobic Blood Culture - Preliminary No growth in 24 hours. 05/03/24 13:35 Blood - Blood Anaerobic Blood Culture - Preliminary No growth in 24 hours. 05/03/24 13:45 Blood - Blood Aerobic Blood Culture - Preliminary No growth in 24 hours. 05/03/24 13:45 Blood - Blood Anaerobic Blood Culture - Preliminary No growth in 24 hours. Assessment/ Plan: Nephrology No dyspnea No chest pain Feeling better No acute events overnight Vitals, medications, blood work and imaging reviewed in the chart General: In no apparent distress, Oriented x3, Cooperative HEENT: Atraumatic Neck: Supple Respiratory: Normal air movement Cardiovascular: Regular rate/rhythm, Edema Gastrointestinal: Soft and benign, Non-distended Musculoskeletal: No clubbing, No contractures Integumentary: No cyanosis, Erythema Neurological: Normal speech Laboratory Data (last 24 hrs) 05/03/24 05/03/24 05/03/24 13:35 13:35 13:35 WBC 16.70 H Hgb 11.1 L Hct 33.7 L Plt Count 151 L PT 14.0 H INR 1.26 APTT 29.2 Sodium 137 Potassium 4.2 BUN 43 H Creatinine 1.93 H Glucose 103 Total Bilirubin 1.2 H AST 16 ALT 20 Alkaline Phosphatase 101 05/03/24 11:56 WBC Hgb Hct Plt Count PT INR APTT Sodium Cancelled Potassium Cancelled BUN Cancelled Creatinine Cancelled Glucose Cancelled Total Bilirubin AST ALT Alkaline Phosphatase Imagings Data: [id number] EXAMINATION: ONE VIEW CHEST XR CLINICAL INDICATION: AMS TECHNIQUE: Frontal chest projection is submitted. Examination is limited by patient positioning and technique. COMPARISON: 02/04/2024 FINDINGS: Mild bilateral pulmonary edema is suspected. The heart is moderately enlarged in size. Sternotomy wires. Single-lead pacer device. IMPRESSION: Mild CHF versus volume overload pattern is suspected. [id number] EXAM: CT CHEST, ABDOMEN AND PELVIS WITHOUT CONTRAST CLINICAL INDICATION: Male, 84 years old. [facility] MAIN fall, AMS, abd pain, back pain Bed: TECHNIQUE: CT chest, abdomen and pelvis was performed, without IV contrast, as per department protocol. Axial, sagittal and coronal reconstructions were obtained. One or more of the following dose reduction techniques were used: Automated exposure control, adjustment of the mA and/or kV according to the patient size, and/or iterative reconstruction. Unless otherwise specified, incidental findings do not require dedicated imaging follow-up. COMPARISON: CT abdomen and pelvis 02/04/2024 FINDINGS: The lack of intravenous contrast limits the sensitivity of this exam for evaluation of solid visceral organs, vascular structures, and retroperitoneum. Chest: LOWER NECK/CHEST WALL: Visualized thyroid gland and soft tissues are normal. Left chest wall pacer/AICD in place. LUNGS AND AIRWAYS: Airways are clear. No evidence of airspace or interstitial process. Multiple bilateral pulmonary nodules are seen. The largest of these is in the lingular segment measuring 8 mm on axial image 28. Another anterior left upper lobe 3 mm nodule is seen on axial image 25. Right apical para bronchovascular 4 mm nodule seen on axial image 14. Peripheral lower segment right upper lobe 4 mL nodule seen on axial image 23. PLEURA: No pleural effusion. No pneumothorax. Hemidiaphragms are normally positioned. MEDIASTINUM AND LYMPH NODES: No mediastinal mass or fluid collection. Normal size mediastinal, hilar, and axillary lymph nodes. Left atrial appendage occlusion device in place. THORACIC AORTA: Normal caliber and configuration. PULMONARY ARTERIES: Normal caliber. HEART: Unremarkable. Abdomen/Pelvis LIVER: Normal in size and contour. No focal lesion. GALLBLADDER/BILE DUCTS: Status post cholecystectomy PANCREAS: No mass, ductal dilation, or popeye-pancreatic fluid. SPLEEN: Normal size. No focal lesion. ADRENALS: Normal; no mass. KIDNEYS AND URETERS: Normal size and contour. No hydronephrosis. Exophytic left upper to midpole 5.2 cm cyst and other smaller right lower pole exophytic cysts are grossly stable. GASTROINTESTINAL TRACT: Stomach is non-dilated. Small bowel has normal course and caliber. No colonic wall thickening or pericolonic inflammatory changes. PERITONEUM: No free fluid. LYMPH NODES: No lymphadenopathy. ABDOMINAL AORTA AND OTHER VESSELS: Normal caliber aorta and IVC. URINARY BLADDER: Decompressed, limiting evaluation. REPRODUCTIVE ORGANS: No pathologic process. MUSCULOSKELETAL: No acute or suspicious osseous abnormality. ADDITIONAL FINDINGS: Bilateral small inguinal hernias containing fat. IMPRESSION: No acute or significant abnormalities in the chest, abdomen, or pelvis. Bilateral pulmonary nodules incidentally noted, largest measuring 8 mm in the left lingular segment. 2017 Fleischner Society Recommendations for Lung Nodule(s): Follow-Up based on size (average of long- and short-axis diameters). Use most suspicious nodule for followup. If patient is low risk, recommend a non-contrast chest CT at 3-6 months, then consider another non-contrast chest CT at 18-24 months. If patient is high risk, recommend a non-contrast chest CT at 3-6 months, then another non-contrast chest CT at 18-24 months, if stable. These guidelines do not apply to patients younger than 35 years, immunocompromised patients, and patients with cancer. F/u in patients with significant comorbidities as clinically warranted. For lung cancer screening, adhere to Lung-RADS guidelines. [id number] EXAM: CT brain without contrast HISTORY: fall, head injury, AMS COMPARISON: None TECHNIQUE: Multiple contiguous axial images were obtained and a CT of the brain without contrast. Sagittal and coronal reformats were performed. FINDINGS: No evidence of hydrocephalus, intracranial hemorrhage, or extra-axial fluid collection. The brain is normal in morphology. The calvarium is intact. The visualized paranasal sinuses and mastoid air cells are essentially clear. IMPRESSION: No evidence of acute intracranial abnormality. EXAM: CT of the cervical spine without contrast HISTORY: fall, head injury, AMS COMPARISON: None TECHNIQUE: Multiple contiguous axial images were obtained in a CT of the cervical spine without contrast. Sagittal and coronal reformats were performed. FINDINGS: The vertebral bodies demonstrate normal height and alignment. No evidence of acute fracture or subluxation. Nonunited fractures along the spinous processes of C6 and C7, with corticated margins, suggesting remote fractures. No degenerative changes are present. No prevertebral soft tissue swelling is seen. The posterior facets are well aligned. Normal alignment of the skull base with the cervical spine is seen. RADIOLOGY SERVICES REPORT (Continued) Name: ZE LAGUNAS CC: Luis Eduardo Jeffries DO; Deven Adler JR, MD, JAMES HOWARD / Report: [id number] Radiology Services Report Page 2 of 2 The lung apices are unremarkable. IMPRESSION: No evidence of acute osseous abnormality of the cervical spine. Remote appearing fractures of the spinous processes of C6 and C7. [id number] LEFT VENTRICULAR WALL MOTION: NORMAL DOPPLER/COLOR FLOW: SEE BELOW COMMENTS: 1. NORMAL LEFT VENTRICULAR EJECTION FRACTION 55-60% WITH NORMAL WALL MOTION 2. DIASTOLIC DYSFUNCTION AT LEAST MODERATE 3. MODERATE TRICUSPID REGURGITATION 4. LEFT ATRIAL ENLARGEMENT 5. PULMONARY HYPERTENSION WITH RIGHT VENTRICULAR SYSTOLIC PRESSURE OF 45 mmHg PLUS RIGHT ATRIAL PRESSURE Conclusions/Impression: Stage I VINAY in the setting of sepsis CKD III -No NSAIDs -IVF bolus prn Hypokalemia -Replete potassium Hypophosphatemia -Encourage nutrition as tolerated -Neutra-phos X1 Septic Shock Acute Klebsiella Cystitis with hematuria -IVF bolus prn -Continue Abx Diastolic CHF, chronic -Daily weight -Hold Torsemide DM II with CKD & Polyneuropathy -RISS Anemia in chronic illness -Monitor H&H Hospitalist note reviewed Case reviewed with the hospitalist team
[2024-05-07 04:46] VITALS: TEMP 98.9
[2024-05-07 06:01] LABS: Absolute Lymphocytes (CBC) 1.7 K/uL (0.7-4.9); Absolute Monocytes 0.6 K/uL (0.1-1.3); Absolute Neutrophil 6.2 K/uL (1.8-8.0); Basophils % 0.2 % (0-1.3); Eosinophils % 0.5 % (0-4.4); Hematocrit 30.2 % (39.6-49.0); Hemoglobin 10.1 g/dL (13.6-17.9); Lymphocytes % 19.5 % (15.3-44.8); MCH 30.1 pg (27.0-35.0); MCHC 33.5 g/dL (32.0-36.0); MCV 89.8 fL (80-100); MPV 7.6 fL (7.6-11.3); Monocytes % 7.4 % (3.3-12.3); Neutrophils % 72.4 % (41.7-73.7); Platelets 125 thou/uL (152-406); RBC Red Blood Cell Count 3.36 M/uL (4.33-5.43); Red Cell Distribution Width 14.5 % (12.1-15.2)
[2024-05-07 06:29] LABS: Albumin 2.4 g/dL (3.4-5.0); Albumin/Globulin Ratio 0.6 (1.1-1.8); Anion Gap 8.9 mEq/L (5.0-15.0); Bilirubin Total 1.5 mg/dL (0.2-1.0); Globulin 3.9 g/dL (2.3-3.5); Magnesium 1.8 mg/dL (1.6-2.4); Potassium 3.9 mEq/L (3.5-5.1); Protein, Total 6.3 g/dL (6.4-8.2)
[2024-05-07 08:51] VITALS: BP 166/74
--- NOTE | 2024-05-07 10:56 | P.DS ---
Admission Date: 05/03/24 Discharge Date: 05/07/24 Disposition: ROUTINE DISCHARGE Discharge Condition: GOOD Reason for Admission: Septic shock Brief History of Present Illness: Diagnosis Septic shock secondary to UTI versus bilateral lower extremity cellulitis Acute metabolic encephalopathy secondary to sepsis VINAY secondary to sepsis Chronic diastolic congestive heart failure Atrial fibrillation status post Watchman procedure Diabetes mellitus type 2 History of CAD [facility] Lex Henning is an 84-year-old male with history of CAD, atrial fibrillation status post Watchman procedure, diabetes mellitus type 2, hypertension, hypothyroidism presents to the emergency department with chief complaint of altered mental status, fall. His at bedside reports has been becoming progressively confused over the course of the last 2 days, he was initially hypotensive upon arrival to the emergency department blood pressure of 81/46 and a temperature of 99.6. Was determined in the ER that he had a urinary tract infection and met criteria for septic shock given his multiple low blood pressure readings. He has a history of CHF given this consideration he was not given the total 30 cc/kg IV fluid bolus instead he was given 1.5 L and started on Levophed. His labs were significant for acute kidney injury, leukocytosis initial lactate was 1.7. Patient is alert, oriented x 2 at this time denies any specific complaints. He does have erythema to bilateral lower extremities with warmth. He is being admitted to the ICU for septic shock secondary to UTI versus cellulitis Hospital Course: Lex Henning is a pleasant 84 year old male with a past medical history significant for CAD, atrial fibrillation status post Watchman procedure, diabetes mellitus type 2, hypertension, hypothyroidism, and CHF who was admitted to the [facility] on 05/03/24 for AMS and recent fall. Lex was admitted to the hospital for UTI, septic shock, hypotension. He was initially treated with vancomycin, Levaquin and required vasopressors in the ICU for the first evening. He was able to be weaned off the vasopressors overnight and has been clinically improving ever since. Blood cultures showed no growth in 24 hours, urine culture grew Klebsiella which was sensitive to levofloxacin. He has remained afebrile throughout hospitalization, white blood cell count initially 16.7 downtrending now at 7.6. Lex was also seen by physical therapy during his hospitalization was able to ambulate 40 feet x 2 with front wheel walker and contact-guard assist, at bedside reports this is near his baseline and she is comfortable helping care for him in this condition. Prescription for levofloxacin 750 mg by mouth once daily for 5 days sent to his pharmacy. He was taking torsemide 10 mg daily at home prior to hospitalization, he currently has no edema, breath sounds are clear and when he came in he was hypotensive. We discussed holding the torsemide until follow-up with nephrology or if he begins having signs of fluid retention including weight gain, lower extremity edema or shortness of breath she will check his blood pressure prior to reinitiating the torsemide. On 05/07/24, Lex was seen on morning rounds and deemed medically stable for discharge. Lex was discharged with instructions to schedule follow-up appointments with PCP and Dr. Jeffries. Lex was provided prescriptions for Levaquin. Physical Exam GEN: Alert and oriented x2, NAD HEENT: Normal conjunctiva, sclera anicteric CV: RRR, S1 S2 present, no edema Pulm: Nonlabored respirations on room air ABD: Soft on palpation, ND/NT MSK: No joint tenderness Integumentary: Erythema to bilateral lower extremities in the slade area Neuro: Normal speech, normal affect Vital Signs/Physical Exam: Temp Pulse Resp BP Pulse Ox 98.9 F 73 16 166/74 H 96 05/07/24 08:00 05/07/24 08:45 05/07/24 08:00 05/07/24 08:45 05/07/24 08:00 Laboratory Data at Discharge: WBC 8.50 thou/uL (4.3-10.9) 05/07/24 05:45 Hgb 10.1 g/dL (13.6-17.9) L 05/07/24 05:45 Hct 30.2 % (39.6-49.0) L 05/07/24 05:45 Plt Count 125 thou/uL (152-406) L 05/07/24 05:45 PT 14.0 SECONDS (9.4-12.5) H 05/03/24 13:35 INR 1.26 05/03/24 13:35 APTT 29.2 SECONDS (24.3-36.9) 05/03/24 13:35 Sodium 136 mEq/L (136-145) 05/07/24 05:45 Potassium 3.9 mEq/L (3.5-5.1) 05/07/24 05:45 BUN 21 mg/dL (7-18) H 05/07/24 05:45 Creatinine 1.18 mg/dL (0.70-1.30) 05/07/24 05:45 Glucose 188 mg/dL (74-106) H 05/07/24 05:45 Phosphorus 2.0 mg/dL (2.5-4.9) L 05/07/24 05:45 Magnesium 1.8 mg/dL (1.6-2.4) 05/07/24 05:45 Total Bilirubin 1.5 mg/dL (0.2-1.0) H 05/07/24 05:45 AST 80 U/L (15-37) H 05/07/24 05:45 ALT 63 U/L (16-61) H 05/07/24 05:45 Alkaline Phosphatase 95 U/L (45-117) 05/07/24 05:45 Home Medications: Magnesium Oxide [Magnesium] 500 mg PO DAILY 11/29/15 Metoprolol Tartrate [Lopressor*] 25 mg PO BID 11/29/15 Pravastatin [Pravachol*] 40 mg PO DAILY 11/29/15 Alendronate Sodium 70 mg PO Q7D 02/04/24 Gabapentin 600 mg PO BID 02/04/24 Levothyroxine [Synthroid*] 50 mcg PO [id number] 05/04/24 levoFLOXacin [Levaquin*] 750 mg PO DAILY #5 tab 05/06/24 New Medications: levoFLOXacin [Levaquin*] 750 mg PO DAILY #5 tab Physician Discharge Instructions: Patient was admitted to the hospital for UTI, septic shock, hypotension. He was initially treated with vancomycin, Levaquin and required vasopressors in the ICU for the first evening. He was able to be weaned off the vasopressors overnight and has been clinically improving ever since. Blood cultures showed no growth in 24 hours, urine culture grew Klebsiella which was sensitive to levofloxacin. He has remained afebrile throughout hospitalization, white blood cell count initially 16.7 downtrending now at 7.6. Patient was also seen by physical therapy during his hospitalization was able to ambulate 40 feet x 2 with front wheel walker and contact-guard assist, at bedside reports this is near his baseline and she is comfortable helping care for him in this condition. Prescription for levofloxacin 750 mg by mouth once daily for 5 days sent to his pharmacy. He was taking torsemide 10 mg daily at home prior to hospitalization, he currently has no edema, breath sounds are clear and when he came in he was hypotensive. We discussed holding the torsemide until follow-up with nephrology or if he begins having signs of fluid retention including weight gain, lower extremity edema or shortness of breath she will check his blood pressure prior to reinitiating the torsemide. Follow-up in [address] Jeffries for ongoing care/repeat BMP Diet: AHA Activity: Fall precautions Followup: Luis Eduardo Jeffries DO [Primary Care Provider] - 1 Week
== END 2024-05-07 12:37 | disposition home or self-care (01) | DRG 871 ==
LOC: ER 11:14 → ERHOLD 17:13 → 3RD-ICU 21:01 → 2ND 05-05 05:39
PROVIDERS: ADMIT Internal Medicine; ATTEND Hospitalist
PROC: 3E033XZ Introduction of Vasopressor into Peripheral Vein, Percutaneous Approach (ICD-10-PCS; principal; 2024-05-03)
DX: A41.59 Other Gram-negative sepsis (principal); G93.41 Metabolic encephalopathy; R65.21 Severe sepsis with septic shock; N17.9 Acute kidney failure, unspecified; I50.32 Chronic diastolic (congestive) heart failure; I13.0 Hypertensive heart and chronic kidney disease with heart failure and stage 1 through stage 4 chronic kidney disease, or unspecified chronic kidney disease; N30.01 Acute cystitis with hematuria; E44.0 Moderate protein-calorie malnutrition; N18.30 Chronic kidney disease, stage 3 unspecified; E11.22 Type 2 diabetes mellitus with diabetic chronic kidney disease; E11.42 Type 2 diabetes mellitus with diabetic polyneuropathy; D63.1 Anemia in chronic kidney disease; L89.321 Pressure ulcer of left buttock, stage 1; L89.311 Pressure ulcer of right buttock, stage 1; I48.91 Unspecified atrial fibrillation; D69.6 Thrombocytopenia, unspecified; E83.39 Other disorders of phosphorus metabolism; E87.6 Hypokalemia; E03.9 Hypothyroidism, unspecified; I25.10 Atherosclerotic heart disease of native coronary artery without angina pectoris; B96.1 Klebsiella pneumoniae [K. pneumoniae] as the cause of diseases classified elsewhere; Z88.0 Allergy status to penicillin; Z95.0 Presence of cardiac pacemaker; Z79.4 Long term (current) use of insulin; Z88.8 Allergy status to other drugs, medicaments and biological substances; Z79.82 Long term (current) use of aspirin; Z90.49 Acquired absence of other specified parts of digestive tract; Z28.310 Unvaccinated for COVID-19; Z79.899 Other long term (current) drug therapy; Z68.36 Body mass index [BMI] 36.0-36.9, adult; W07.XXXA Fall from chair, initial encounter; Y93.9 Activity, unspecified; Y92.009 Unspecified place in unspecified non-institutional (private) residence as the place of occurrence of the external cause
CPT/HCPCS: 36415; 36556; 36569; 70450; 71045; 71250; 72125; 74176; 76770; 80053; 80202; 81001; 82947; 83605; 83735; 84100; 84439; 84443; 85025; 85610; 85730; 87040; 87077; 87086; 87088; 87186; 93005; 97116; 97161; 97530; 99285; J0696; J1644; J7030; J7040

== ENCOUNTER 2024-08-30 14:36 | Emergency (ER) | payer MEDICARE ==
--- NOTE | 2024-08-30 15:28 | RAD REPORT ---
EXAMINATION: CT HEAD WITHOUT CONTRAST CT CERVICAL SPINE WITHOUT CONTRAST CLINICAL INDICATION: Male, 84 years old. fall, head injury TECHNIQUE: Axial CT images from the skull base to the vertex without intravenous contrast. Axial CT i mages through the cervical spine were obtained without intravenous contrast. Sagittal and coronal reformatted images were created from the data set. Coronal and sagittal reformatted images were creat ed from the data set. One or more of the following dose reduction techniques were used: Automated exposure control, adjustment of the mA and/or kV according to patient size, and/or iterative reconstr uction. Unless otherwise specified, incidental findings do not require dedicated imaging follow-up. [id number]. COMPARISON: 05/03/2024 FINDINGS: Head: INTRACRANIAL: No acute intracranial hemorrhage. No hydrocephalus. No mass effect or midline shift. Mi ld chronic small vessel ischemic changes.Moderate cerebral atrophy. VASCULATURE: No visualized abnormalities in the arteries or dural venous sinuses. SCALP/SKULL: No calvarial fracture identified. No acute soft tissue abnormality. SINUSES: The visualized paranasal sinuses are mostly clear. No significant mastoid fluid. Cervical spine: ALIGNMENT: 2 mm retrolisthesis of C3 on C4 which is unchanged. BONE: Vertebral body heights are maintained. No aggressive osseous lesions. Remote C6 and C7 spinous process fractures. DEGENERATIVE: Multilevel cervical spondylosis with evidence of bilateral neural foraminal narrowing. No high grade central spinal stenosis. SOFT TISSUE: No significant abnormalities in the soft tissue of the neck. The visualized lung apices are clear. IMPRESSION: No acute intracranial abnormality. No acute fracture or traumatic malalignment of the cervical spine.
--- NOTE | 2024-08-30 15:31 | RAD REPORT ---
EXAMINATION: CT MAXILLOFACIAL WITHOUT CONTRAST CLINICAL INDICATION: Male, 84 years old. facial injury TECHNIQUE: Axial images were obtained through the facial bones and orbits without intravenous contras t. Sagittal and coronal reconstructions were created from the data. One or more of the following dose reduction techniques were used: Automated exposure control, adjustment of the mA and/or kV accor ding to patient size, and/or iterative reconstruction. Unless otherwise specified, incidental findings do not require dedicated imaging follow-up. [id number]. COMPARISON: No prior exam. FINDINGS: SOFT TISSUE: No significant abnormalities. BONES: No evidence of fracture, dislocation, or aggressive osseous lesions. No lesion of the visuali zed skull base or calvarium. Multiple dental caries. ORBITS: The globes are intact. No intraorbital hemorrhage or mass. SINUSES: The paranasal sinuses and tympanomastoid cavities are predominantly clear. BRAIN: No acute abnormalities in the visualized intracranial structures. IMPRESSION: No facial fracture identified.
--- NOTE | 2024-08-30 15:37 | ER ---
Nurse's Notes [facility] Name: Lex Henning Age: 84 yrs Sex: Male : 1940 Arrival Date: 08/30/2024 Time: 14:36 Bed 10 Private MD: Diagnosis: Unspecified injury of head, initial encounter Presentation: 08/30 15:00 Chief complaint: Patient states: Fall last week and pt continues to have headache. Pt cm10 states that he fell off the cough and hit his head. Chief complaint: Patient states: Fall last week and pt continues to have headache. Pt states that he fell off the cough and hit his head. Coronavirus screen: Client denies travel out of the [place] in the last 14 days. Ebola Screen: Patient denies travel to an Ebola-affected area in the 21 days before illness onset. Initial Sepsis Screen: Does the patient meet any 2 criteria? No. Patient's initial sepsis screen is negative. Does the patient have a suspected source of infection? No. Patient's initial sepsis screen is negative. Risk Assessment: Do you want to hurt yourself or someone else? Patient reports no desire to harm self or others. Onset of symptoms was August 30, 2024. 15:00 Method Of Arrival: Ambulatory cm10 15:00 Acuity: YOVANNY 3 cm10 Triage Assessment: 15:01 General: Appears in no apparent distress. comfortable, Behavior is calm, cooperative. cm10 Pain: Complains of pain in head Pain currently is 7 out of 10 on a pain scale. Neuro: No deficits noted. Level of Consciousness is awake, alert, obeys commands, Oriented to person, place, time, situation, Appropriate for age. Respiratory: No deficits noted. Airway is patent Respiratory effort is even, unlabored, Respiratory pattern is regular, symmetrical. Historical: - Allergies: 15:01 Cortisone; cm10 15:01 PENICILLINS; cm10 - PMHx: 15:01 Arthritis; coronary atherosclerosis; Hypertensive disorder; diabetes mellitus; cm10 Hypothyroidism; - PSHx: 15:01 cataract; Cholecystectomy; Left ankle sx; pacemaker; prostate sx; triple bypass; cm10 watchman; - Immunization history:: Adult Immunizations up to date. - Infectious Disease History:: Denies. - Social history:: Smoking status: Patient denies any tobacco usage or history of. - Family history:: not pertinent. - Hospitalizations: : No recent hospitalization is reported. Screenin:10 [facility] ED Fall Risk Assessment (Adult) History of falling in the last 3 months, me1 including since admission Yes- single mechanical fall (1 pt) Confusion or Disorientation No (0 pts) Intoxicated or Sedated No (0 pts) Impaired Gait Yes (1 pt) Mobility Assist Device Used Yes (1 pt) Altered Elimination No (0 pt) Score/Fall Risk Level 0 - 2 = Low Risk Maintained a safe environment, Provided non-skid footwear, Hourly rounding (assess needs \T\ fall precautionary measures) done. Abuse screen: Denies threats or abuse. Nutritional screening: No deficits noted. Tuberculosis screening: No symptoms or risk factors identified. Assessment: 15:10 General: Appears uncomfortable, well groomed, well developed, well nourished, Behavior me1 is calm, cooperative, appropriate for age, Reports Fall last week and pt continues to have headache. Pt states that he fell off the couch and hit his head. Pain: Complains of pain in head Pain does not radiate. Pain currently is 4 out of 10 on a pain scale. Quality of pain is described as aching, Pain began gradually, Is continuous. Neuro: Level of Consciousness is awake, alert, obeys commands, Oriented to person, place, time, situation, Appropriate for age. Neuro: Reports headache. Cardiovascular: Patient's skin is warm and dry. Respiratory: Airway is patent Respiratory effort is even, unlabored, Respiratory pattern is regular, symmetrical. GI: No signs and/or symptoms were reported involving the gastrointestinal system. : No signs and/or symptoms were reported regarding the genitourinary system. EENT: No signs and/or symptoms were reported regarding the EENT system. Derm: Skin is intact, is healthy with good turgor, Skin is pink, warm \T\ dry. Musculoskeletal: No signs and/or symptoms reported regarding the musculoskeletal system. Injury Description: Fall last week and pt continues to have headache. Pt states that he fell off the couch and hit his head. Vital Signs: 15:00 BP 145 / 68; Pulse 68; Resp 16; Temp 97.8(O); Pulse Ox 97% ; Weight 87.09 kg; Height 5 cm10 ft. 2 in. ; Pain 7/10; 16:09 BP 142 / 66; Pulse 67; Resp 15; Temp 98.1; Pulse Ox 98% ; me1 15:00 Body Mass Index 35.12 (87.09 kg, 157.48 cm) cm10 15:00 Pain Scale: Adult cm10 ED Course: 14:40 Patient arrived in ED. 14:42 Deven Adler MD is Attending Physician. rn 15:01 Triage completed. cm10 15:01 Arm band placed on right wrist. Patient placed in waiting room. cm10 15:10 CT Head C Spine In Process Unspecified. EDMS 15:10 CT Facial Bones W/O Con In Process Unspecified. EDMS 15:10 Patient has correct armband on for positive identification. Bed in low position. Call me1 light in reach. Side rails up X 1. Provided Education on: POC. Verbalized understanding.. Client placed on continuous cardiac and pulse oximetry monitoring. NIBP monitoring applied. Pulse ox on. NIBP on. 15:10 No provider procedures requiring assistance completed. Patient did not have IV access me1 during this emergency room visit. 15:21 Jil Mcduffie, RN is Primary Nurse. me1 Administered Medications: No medications were administered Medication: 15:10 VIS not applicable for this client. me1 Outcome: 15:37 Discharge ordered by . rn 16:07 Patient left the ED. aa5 16:10 Discharged to home via wheelchair, with family, me1 16:10 Condition: stable 16:10 Discharge instructions given to patient, family, Instructed on discharge instructions, follow up and referral plans. Demonstrated understanding of instructions, follow-up care, Signatures: Dispatcher [employer] [facility] Deven Adler MD MD rn Calderon, Audri, RN RN aa5 Danielle Sheppard Clarissa RN RN cm10 Jil Mcduffie, BREN RN me1
--- NOTE | 2024-08-30 15:37 | EDPHYS ---
Physician Documentation [facility] Name: Lex Henning Age: 84 yrs Sex: Male : 1940 Arrival Date: 08/30/2024 Time: 14:36 Bed 10 Private MD: ED Physician Deven Adler HPI: 08/30 15:04 This 84 yrs old Male presents to ER via Ambulatory with complaints of Fall Injury - 1 rn week ago, Headache. 15:04 Details of fall: The patient fell from seated position. Onset: The symptoms/episode rn began/occurred 1 week(s) ago. Associated injuries: The patient sustained injury to the head. Severity of symptoms: At their worst the symptoms were mild. The patient has not experienced similar symptoms in the past. reports fall from seated position 1 week ago, fell and struck head on tile floor. No LOC. No seizure. EMS was called but they told patient he did not need to go to the emergency room or need sutures so patient stayed home when given the option. Patient reports persistent headache with nausea. Reports pain to head and nose. No back pain. No chest or abdominal pain. No extremity injury.. Historical: - Allergies: 15:01 Cortisone; cm10 15:01 PENICILLINS; cm10 - PMHx: 15:01 Arthritis; coronary atherosclerosis; Hypertensive disorder; diabetes mellitus; cm10 Hypothyroidism; - PSHx: 15:01 cataract; Cholecystectomy; Left ankle sx; pacemaker; prostate sx; triple bypass; cm10 watchman; - Immunization history:: Adult Immunizations up to date. - Infectious Disease History:: Denies. - Social history:: Smoking status: Patient denies any tobacco usage or history of. - Family history:: not pertinent. - Hospitalizations: : No recent hospitalization is reported. ROS: 15:04 Constitutional: Negative for fever, chills, and weight loss, Eyes: Negative for injury, rn pain, redness, and discharge, ENT: Positive for nasal pain and injury Neck: Negative for injury, pain, and swelling, Cardiovascular: Negative for chest pain, palpitations, and edema, Respiratory: Negative for shortness of breath, cough, wheezing, and pleuritic chest pain, Abdomen/GI: Positive for nausea, negative for abdominal pain MS/Extremity: Negative for injury and deformity, Neuro: Positive for headache Exam: 15:04 Constitutional: This is a well developed, well nourished patient who is awake, alert, rn and in no acute distress. Ambulatory with walker to triage without assistance Head/Face: Healing irregular laceration to mid forehead. Abrasion noted to nasal bridge. Eyes: No periorbital ecchymosis Neck: No midline cervical tenderness or swelling Cardiovascular: Regular rate and rhythm. No pulse deficits. Respiratory: No increased work of breathing, no retractions or nasal flaring. Abdomen/GI: Soft, non-tender Skin: Healing laceration to mid forehead, surrounded with yellow ecchymosis. Abrasion to nasal bridge. No bony tenderness or deformity MS/ Extremity: Pulses equal, no cyanosis. Neuro: Awake and alert, GCS 15, normal gait Vital Signs: 15:00 BP 145 / 68; Pulse 68; Resp 16; Temp 97.8(O); Pulse Ox 97% ; Weight 87.09 kg; Height 5 cm10 ft. 2 in. ; Pain 7/10; 16:09 BP 142 / 66; Pulse 67; Resp 15; Temp 98.1; Pulse Ox 98% ; me1 15:00 Body Mass Index 35.12 (87.09 kg, 157.48 cm) cm10 15:00 Pain Scale: Adult cm10 MDM: 14:42 Medical Screening Exam initiated rn 15:36 Differential diagnosis: abrasion, closed head injury, contusion, fracture. Data rn reviewed: vital signs, nurses notes, radiologic studies, CT scan, and as a result, I will discharge patient. Counseling: I had a detailed discussion with the patient and/or guardian regarding the historical points, exam findings, and any diagnostic results supporting the discharge/admit diagnosis, radiology results, the need for outpatient follow up, to return to the emergency department if symptoms worsen or persist or if there are any questions or concerns that arise at home. Special discussion: Based on the patient's history, exam and DX evaluation, there is no indication for emergent intervention or inpatient TX. It is understood by the patient/guardian that if the SXs persist or worsen they need to return immediately for re-evaluation. I discussed with the patient/guardian in detail that at this point there is no indication for admission to the hospital. It is understood, however, that if the symptoms persist or worsen the patient needs to return immediately for re-evaluation. 08/30 14:59 Order name: CT Head C Spine; Complete Time: 15:34 cm10 08/30 14:59 Order name: CT Facial Bones W/O Con; Complete Time: 15:34 cm10 Administered Medications: No medications were administered Disposition Summary: 08/30/24 15:37 Discharge Ordered Notes: Location: Home rn Problem: new rn Symptoms: have improved rn Condition: Stable rn Diagnosis - Unspecified injury of head, initial encounter rn Followup: rn - With: Private Physician - When: As needed - Reason: Recheck today's complaints, Re-evaluation by your physician Discharge Instructions: - Discharge Summary Sheet rn - Head Injury, Adult rn Forms: - Medication Reconciliation Form rn - Antibiotic operating room rn - Prescription Opioid Use rn - Patient Portal Instructions rn - Leadership Thank You Letter rn Signatures: Dispatcher [employer] Deven Beauchamp MD MD rn Martinez, Clarissa, RN RN cm10
[2024-08-30 16:10] VITALS: BP 145/68; TEMP 97.8; O2SAT 97
== END 2024-08-30 16:07 | disposition home or self-care (01) ==
LOC: ER 14:36
DX: S00.31XA Abrasion of nose, initial encounter (principal); R51.9 Headache, unspecified; W07.XXXA Fall from chair, initial encounter; Z95.1 Presence of aortocoronary bypass graft; Z95.0 Presence of cardiac pacemaker
CPT/HCPCS: 70450; 70486; 72125; 76377

== ENCOUNTER 2024-09-21 13:54 | Emergency (ER) | payer MEDICARE ==
[2024-09-21] MEDS ORDERED: ONDANSETRON 4 MG/2 ML VIAL ONE (14:24)
[2024-09-21 14:54] LABS: Absolute Lymphocytes (CBC) 2.5 K/uL (0.7-4.9); Absolute Monocytes 0.4 K/uL (0.1-1.3); Absolute Neutrophil 5.8 K/uL (1.8-8.0); Basophils % 0.4 % (0-1.3); Eosinophils % 0.5 % (0-4.4); Hematocrit 39.9 % (39.6-49.0); Hemoglobin 13.8 g/dL (13.6-17.9); Lymphocytes % 28.8 % (15.3-44.8); MCHC 34.5 g/dL (32.0-36.0); MCV 89.7 fL (80-100); Monocytes % 4.4 % (3.3-12.3); Neutrophils % 65.9 % (41.7-73.7); Nucleated Red Blood Cells % 0.2 % (0-0); Platelets 182 thou/uL (152-406); RBC Red Blood Cell Count 4.45 M/uL (4.33-5.43); Red Cell Distribution Width 13.2 % (12.1-15.2)
[2024-09-21 15:04] LABS: Albumin 3.5 g/dL (3.4-5.0); Anion Gap 8.9 mEq/L (5.0-15.0); Bilirubin Total 1.1 mg/dL (0.2-1.0); Globulin 3.6 g/dL (2.3-3.5); Potassium 3.9 mEq/L (3.5-5.1); Protein, Total 7.1 g/dL (6.4-8.2)
[2024-09-21 15:13] LABS: Specific Gravity 1.023 (1.005-1.030); Sqamous Epithelial <5 /HPF (None Seen); Urine Bacteria None Seen /HPF (<20); Urine Bilirubin NEGATIVE (Negative); Urine Blood Trace (Negative); Urine Clarity Clear (Clear); Urine Color Yellow (Yellow); Urine Culture Reflex Order NOT NEEDED; Urine Glucose 3+ (Negative); Urine Ketones 1+ (Negative); Urine Microscopic Reflex YN ORDER UMIC; Urine Nitrite NEGATIVE (Negative); Urine Protein 1+ (Negative); Urine Urobilinogen 3+ (Normal); Urine WBC <5 /HPF (<5)
[2024-09-21] MEDS ORDERED: MORPHINE 2 MG/ML SYR ONE (15:33)
--- NOTE | 2024-09-21 17:10 | RAD REPORT ---
EXAMINATION: CT Abdomen Pelvis Wo Contrast CLINICAL INDICATION: Male, 84 years old. ABD PAIN TECHNIQUE: CT abdomen and pelvis was performed, without IV contrast, as per department protocol. Axia l, sagittal and coronal reconstructions were obtained. One or more of the following dose reduction techniques were used: Automated exposure control, adjustment of the mA and kV according to the patien t size, and iterative reconstruction. Unless otherwise specified, incidental findings do not require dedicated imaging follow-up. COMPARISON: 02/04/2024 FINDINGS: The lack of intravenous contrast limits the sensitivity of this exam for evaluation of solid visceral organs, vascular structures, and retroperitoneum. LOWER CHEST: The visualized lung bases are clear. LIVER: Normal in size and contour. No focal lesion. BILIARY SYSTEM: Status post cholecystectomy. SPLEEN: Normal size. No focal lesion. 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 No other mass, ductal dilation, or popeye-pancrea tic fluid. ADRENALS: Normal; no mass. KIDNEYS AND URETERS: Normal size and contour, apart from stable bilateral cortical cysts largest at t he left upper pole measuring 4.8 cm. No hydronephrosis. URINARY BLADDER: Decompressed limiting evaluation, however with prominent wall thickening compared to the prior exam. GASTROINTESTINAL TRACT: No evidence of bowel obstruction, significant free fluid, free air or abscess . APPENDIX: Normal appendix. LYMPH NODES: No lymphadenopathy. MUSCULOSKELETAL: No acute or suspicious osseous abnormality. 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 ADDITIONAL FINDINGS: None. IMPRESSION: Diffuse wall thickening of the urinary bladder, which could relate to ongoing cystitis, although deco mpression limits evaluation. 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
--- NOTE | 2024-09-21 17:32 | EDPHYS ---
Physician Documentation [facility] Name: Lex Henning Age: 84 yrs Sex: Male : 1940 Arrival Date: 09/21/2024 Time: 13:54 Bed 8 Private MD: ED Physician Deven Adler HPI: 09/21 14:15 This 84 yrs old Male presents to ER via EMS with complaints of Abdominal Pain. rn 14:15 The patient presents with abdominal pain right lower quadrant. rn 14:15 Onset: The symptoms/episode began/occurred 2 day(s) ago. The symptoms do not radiate. rn Associated signs and symptoms: Pertinent positives: nausea, Pertinent negatives: blood in stools, chest pain, constipation, diarrhea, dysuria, fever. The symptoms are described as achy. Modifying factors: The symptoms are alleviated by nothing, the symptoms are aggravated by nothing. Severity of pain: At its worst the pain was very mild in the emergency department the pain is unchanged. The patient has not experienced similar symptoms in the past. Patient reports right lower quadrant abdominal pain that began 2 days ago. Associated with nausea and diminished appetite. No fever or chills. No diarrhea. reports she believes he is having some anxiety as she just had knee surgery and he has been worried about her.. Historical: - Allergies: 13:58 Cortisone; kc6 13:58 PENICILLINS; kc6 - PMHx: 13:58 Hypothyroidism; Hypertensive disorder; diabetes mellitus; coronary atherosclerosis; kc6 Arthritis; - PSHx: 13:58 cataract; Cholecystectomy; Left ankle sx; pacemaker; prostate sx; triple bypass; kc6 watchman; - Immunization history:: Adult Immunizations up to date. - Infectious Disease History:: Denies. - Social history:: Smoking status: Patient/guardian denies using tobacco, but has a distant history of tobacco abuse. - Family history:: not pertinent. - Hospitalizations: : No recent hospitalization is reported. ROS: 14:15 Constitutional: Negative for fever, chills, and weight loss, Cardiovascular: Negative rn for chest pain, palpitations, and edema, Respiratory: Negative for shortness of breath, cough, wheezing, and pleuritic chest pain, Abdomen/GI: Positive for abdominal pain with nausea Back: Negative for injury and pain, : Negative for injury, bleeding, discharge, and swelling, MS/Extremity: Negative for injury and deformity, Skin: Negative for injury, rash, and discoloration, Neuro: Negative for headache, weakness, numbness, tingling, and seizure, Exam: 14:15 Constitutional: This is a well developed, well nourished patient who is awake, alert, rn and in no acute distress. Cardiovascular: Regular rate and rhythm. No pulse deficits. Respiratory: No increased work of breathing, no retractions or nasal flaring. Abdomen/GI: Soft, mild right lower quadrant tenderness without rebound or guarding. No distention. Vital Signs: 13:57 BP 145 / 66; Pulse 87; Resp 17 S; Temp 97.9(O); Pulse Ox 94% on R/A; Weight 85.28 kg kc6 (M); Height 5 ft. 2 in. (R); Pain 9/10; 15:56 BP 156 / 61; Pulse 81; Resp 18 S; Pulse Ox 96% on R/A; kc6 16:56 BP 151 / 69; Pulse 72; Resp 16 S; Pulse Ox 98% on R/A; kc6 13:57 Body Mass Index 34.39 (85.28 kg, 157.48 cm) kc6 13:57 Pain Scale: Adult kc6 MDM: 13:58 Medical Screening Exam initiated rn 17:29 Differential diagnosis: appendicitis, urinary tract infection. rn 17:31 Data reviewed: vital signs, nurses notes, lab test result(s), radiologic studies, CT rn scan, and as a result, I will discharge patient. Counseling: I had a detailed discussion with the patient and/or guardian regarding the historical points, exam findings, and any diagnostic results supporting the discharge/admit diagnosis, lab results, radiology results, the need for outpatient follow up, to return to the emergency department if symptoms worsen or persist or if there are any questions or concerns that arise at home. Special discussion: I discussed with the patient/guardian in detail that at this point there is no indication for admission to the hospital. It is understood, however, that if the symptoms persist or worsen the patient needs to return immediately for re-evaluation. ED course: Questionable cystitis on imaging. Otherwise no acute findings. I have personally reviewed all of the results, including but not limited to blood tests and imaging deemed necessary to safely discharge this patient at this time. All results given to and printed out for patient. I personally went over all the results with the patient and answered all questions. Patient will follow-up with PCP and or specialist as discussed. Return precautions given and understood.. 09/21 13:59 Order name: CBC with Diff; Complete Time: 15:31 rn 09/21 13:59 Order name: CMP; Complete Time: 15:31 rn 09/21 13:59 Order name: Lipase; Complete Time: 15:31 rn 09/21 13:59 Order name: Urinalysis w/ reflexes; Complete Time: 15:31 rn 09/21 15:13 Order name: Abdomen ; Complete Time: 17:16 EDMS 09/21 13:59 Order name: IV Saline Lock; Complete Time: 14:47 rn 09/21 13:59 Order name: Labs collected and sent; Complete Time: 14:47 rn Administered Medications: 14:47 Drug: Ondansetron IVP 4 mg IVP once; over 2 minutes Route: IVP; Site: right hand; kc6 15:57 Follow up: Response: No adverse reaction; Nausea is decreased kc6 15:39 Drug: morphine IVP or IV 2 mg IVP once over 4 mins Route: IVP; Infused Over: 4 mins; kc6 Site: right hand; 15:57 Follow up: Response: No adverse reaction kc6 17:41 Drug: Trimethoprim-Sulfamethoxazole PO (160 mg-800 mg (DS) 1 tablet PO once Route: PO; kc6 18:22 Follow up: Response: No adverse reaction kc6 Disposition Summary: 09/21/24 17:31 Discharge Ordered Notes: Location: Home rn Problem: new rn Symptoms: have improved rn Condition: Stable rn Diagnosis - UTI/ Urinary tract infection, site not specified rn Followup: rn - With: Private Physician - When: As needed - Reason: Recheck today's complaints, Re-evaluation by your physician Discharge Instructions: - Discharge Summary Sheet rn - Urinary Tract Infection, Adult rn Forms: - Medication Reconciliation Form rn - Antibiotic regulatory affairs intern - Prescription Opioid Use rn - Patient Portal Instructions rn - Leadership Thank You Letter rn Prescriptions: - Bactrim DS 800-160 mg Oral Tablet - take 1 tablet ORAL route every 12 hours for 10 days; 20 tablet; Refills: 0, rn Product Selection Permitted Signatures: Dispatcher [employer] EDMS AdlerDeven joseph MD MD rn Campbell, Kaitlyn, RN RN kc6 Corrections: (The following items were deleted from the chart) 13:59 13:59 CBC+H.LAB.BRZ ordered. EDMS EDMS 13:59 13:59 COMPREHENSIVE METABOLIC PANEL+C.LAB.BRZ ordered. EDMS EDMS 13:59 13:59 LIPASE+C.LAB.BRZ ordered. EDMS EDMS 13:59 13:59 Urinalysis+U.LAB.BRZ ordered. EDMS EDMS 13:59 13:59 Abdomen Pelvis W Con+CT.RAD.BRZ ordered. EDMS EDMS 15:32 15:32 Abdomen Limited+US.RAD.BRZ ordered. EDMS EDMS
--- NOTE | 2024-09-21 17:32 | ER ---
Nurse's Notes [facility] Name: Lex Henning Age: 84 yrs Sex: Male : 1940 Arrival Date: 09/21/2024 Time: 13:54 Bed 8 Private MD: Diagnosis: UTI/ Urinary tract infection, site not specified Presentation: 09/21 13:57 Chief complaint: EMS states: they were toned out for abd pain x2 days, rates it a 9/10 kc6 today to the RLQ. also reports nausea. denies v/d. Coronavirus screen: At this time, the client does not indicate any symptoms associated with coronavirus-19. Ebola Screen: No symptoms or risks identified at this time. Initial Sepsis Screen: Does the patient meet any 2 criteria? No. Patient's initial sepsis screen is negative. Does the patient have a suspected source of infection? No. Patient's initial sepsis screen is negative. Risk Assessment: Do you want to hurt yourself or someone else? Patient reports no desire to harm self or others. Onset of symptoms was September 21, 2024. 13:57 Method Of Arrival: EMS: [facility] kc6 13:57 Acuity: YOVANNY 3 kc6 13:57 Care prior to arrival: Glucose check: 272. kc6 Historical: - Allergies: 13:58 Cortisone; kc6 13:58 PENICILLINS; kc6 - PMHx: 13:58 Hypothyroidism; Hypertensive disorder; diabetes mellitus; coronary atherosclerosis; kc6 Arthritis; - PSHx: 13:58 cataract; Cholecystectomy; Left ankle sx; pacemaker; prostate sx; triple bypass; kc6 watchman; - Immunization history:: Adult Immunizations up to date. - Infectious Disease History:: Denies. - Social history:: Smoking status: Patient/guardian denies using tobacco, but has a distant history of tobacco abuse. - Family history:: not pertinent. - Hospitalizations: : No recent hospitalization is reported. Screenin:59 [facility] ED Fall Risk Assessment (Adult) History of falling in the last 3 months, kc6 including since admission No falls in past 3 months (0 pts) Confusion or Disorientation No (0 pts) Intoxicated or Sedated No (0 pts) Impaired Gait No (0 pts) Mobility Assist Device Used No (0 pt) Altered Elimination No (0 pt) Score/Fall Risk Level 0 - 2 = Low Risk Oriented to surroundings, Maintained a safe environment, Educated pt \T\ family on fall prevention, incl call for assistance when getting out of bed. Abuse screen: Denies threats or abuse. Denies injuries from another. Nutritional screening: No deficits noted. Tuberculosis screening: No symptoms or risk factors identified. Assessment: 14:00 General: Appears in no apparent distress. comfortable, well groomed, well developed, kc6 Behavior is calm, cooperative, appropriate for age. Pain: Complains of pain in right lower quadrant Pain currently is 9 out of 10 on a pain scale. Neuro: Level of Consciousness is awake, alert, obeys commands, Oriented to person, place, time, situation, Appropriate for age. Cardiovascular: Capillary refill < 3 seconds. Respiratory: Airway is patent Trachea midline Respiratory effort is even, unlabored, Respiratory pattern is regular, symmetrical. GI: Abdomen is round non-distended, Bowel sounds present X 4 quads. Abd is soft X 4 quads Abdomen is tender to palpation in right lower quadrant Reports lower abdominal pain, nausea, Patient currently denies diarrhea, vomiting. : No signs and/or symptoms were reported regarding the genitourinary system. EENT: No signs and/or symptoms were reported regarding the EENT system. Derm: No signs and/or symptoms reported regarding the dermatologic system. Skin is intact, is healthy with good turgor, Skin is pink, warm \T\ dry. Musculoskeletal: No signs and/or symptoms reported regarding the musculoskeletal system. Circulation, motion, and sensation intact. Range of motion: intact in all extremities. 15:56 Reassessment: Patient appears in no apparent distress at this time. No changes from kc6 previously documented assessment. Patient and/or family updated on plan of care and expected duration. Pain level reassessed. Patient is alert, oriented x 3, equal unlabored respirations, skin warm/dry/pink. 16:56 Reassessment: Patient appears in no apparent distress at this time. No changes from kc6 previously documented assessment. Patient and/or family updated on plan of care and expected duration. Pain level reassessed. Patient is alert, oriented x 3, equal unlabored respirations, skin warm/dry/pink. 18:22 Reassessment: Patient appears in no apparent distress at this time. No changes from kc6 previously documented assessment. Patient and/or family updated on plan of care and expected duration. Pain level reassessed. Patient is alert, oriented x 3, equal unlabored respirations, skin warm/dry/pink. Vital Signs: 13:57 BP 145 / 66; Pulse 87; Resp 17 S; Temp 97.9(O); Pulse Ox 94% on R/A; Weight 85.28 kg kc6 (M); Height 5 ft. 2 in. (R); Pain 9/10; 15:56 BP 156 / 61; Pulse 81; Resp 18 S; Pulse Ox 96% on R/A; kc6 16:56 BP 151 / 69; Pulse 72; Resp 16 S; Pulse Ox 98% on R/A; kc6 13:57 Body Mass Index 34.39 (85.28 kg, 157.48 cm) kc6 13:57 Pain Scale: Adult kc6 ED Course: 13:57 Patient arrived in ED. kc6 13:58 Deven Adler MD is Attending Physician. rn 13:58 Triage completed. kc6 13:58 Arm band placed on. kc6 13:59 Patient has correct armband on for positive identification. Bed in low position. Call kc6 light in reach. Side rails up X 1. Adult w/ patient. Pulse ox on. NIBP on. Door closed. Noise minimized. Lights dimmed. Pillow given. Verbal reassurance given. 14:26 Kristy Linder, RN is Primary Nurse. kc6 14:47 Inserted saline lock: 20 gauge in right hand, using aseptic technique. Blood collected. kc6 Flushed with 10 mL NS. 15:06 Straight cath inserted, using sterile technique, 14 Fr. Specimen obtained. Returned kc6 clear yellow urine. Patient tolerated well. 15:13 Abdomen In Process Unspecified. EDMS 18:22 No provider procedures requiring assistance completed. IV discontinued, intact, kc6 bleeding controlled, No redness/swelling at site. Pressure dressing applied. Administered Medications: 14:47 Drug: Ondansetron IVP 4 mg IVP once; over 2 minutes Route: IVP; Site: right hand; kc6 15:57 Follow up: Response: No adverse reaction; Nausea is decreased kc6 15:39 Drug: morphine IVP or IV 2 mg IVP once over 4 mins Route: IVP; Infused Over: 4 mins; kc6 Site: right hand; 15:57 Follow up: Response: No adverse reaction kc6 17:41 Drug: Trimethoprim-Sulfamethoxazole PO (160 mg-800 mg (DS) 1 tablet PO once Route: PO; kc6 18:22 Follow up: Response: No adverse reaction kc6 Medication: 18:22 VIS not applicable for this client. kc6 Outcome: 17:31 Discharge ordered by . rn 18:22 Discharged to home via wheelchair, with significant other, kc6 18:22 Condition: improved 18:22 Discharge instructions given to patient, significant other, Instructed on discharge instructions, follow up and referral plans. medication usage, Demonstrated understanding of instructions, follow-up care, medications, Prescriptions given X 1, 18:22 Patient left the ED. kc6 Signatures: Dispatcher [employer] EDMS Deven Adler MD MD rn Campbell, Kaitlyn, RN RN kc6 Corrections: (The following items were deleted from the chart) 16:56 16:56 BP 151 / 69; Pulse 17bpm; Resp 16bpm; Spontaneous; Pulse Ox 98% RA; kc6 kc6
[2024-09-21] MEDS ORDERED: SMZ./TMP. 800/160 MG TABLET ONE (17:37)
[2024-09-21 18:35] VITALS: TEMP 97.9
[2024-09-21 18:36] VITALS: BP 151/69; O2SAT 98
== END 2024-09-21 18:22 | disposition home or self-care (01) ==
LOC: ER 13:54
DX: N39.0 Urinary tract infection, site not specified (principal)
CPT/HCPCS: 85025; 81001; 36415; 83690; 80053; 74176; J2270; J2405

== ENCOUNTER 2024-10-19 10:44 | Emergency (ER) | payer MEDICARE ==
[2024-10-19] MEDS ORDERED: NA CHLORIDE 0.9% 1,000 ML ONE (11:22)
[2024-10-19] MEDS ORDERED: ONDANSETRON 4 MG/2 ML VIAL ONE (11:22)
[2024-10-19 11:28] LABS: Absolute Eosinophils 0.1 K/uL (0-0.5); Absolute Lymphocytes (CBC) 2.1 K/uL (0.7-4.9); Absolute Monocytes 0.3 K/uL (0.1-1.3); Absolute Neutrophil 4.1 K/uL (1.8-8.0); Basophils % 0.4 % (0-1.3); Eosinophils % 0.9 % (0-4.4); Hematocrit 39.3 % (39.6-49.0); Hemoglobin 13.9 g/dL (13.6-17.9); Lymphocytes % 32.1 % (15.3-44.8); MCH 32.5 pg (27.0-35.0); MCHC 35.4 g/dL (32.0-36.0); MCV 91.9 fL (80-100); MPV 6.8 fL (7.6-11.3); Monocytes % 4.3 % (3.3-12.3); Neutrophils % 62.3 % (41.7-73.7); Nucleated Red Blood Cells % 0.1 % (0-0); PT Prothrombin Time 12.6 SECONDS (10-13.0); Platelets 152 thou/uL (152-406); Protime INR 1.11; RBC Red Blood Cell Count 4.28 M/uL (4.33-5.43); Red Cell Distribution Width 14.5 % (12.1-15.2)
[2024-10-19 11:50] LABS: Albumin 3.6 g/dL (3.4-5.0); Bilirubin Direct 0.5 mg/dL (0-0.2); Bilirubin Indirect, Calculated 0.9 mg/dL (0.2-0.8); Bilirubin Total 1.4 mg/dL (0.2-1.0); Globulin 3.6 g/dL (2.3-3.5); Magnesium 1.6 mg/dL (1.6-2.4); Protein, Total 7.2 g/dL (6.4-8.2); Troponin High Sensitivity 14.7 pg/mL (<58.9)
--- NOTE | 2024-10-19 12:05 | RAD REPORT ---
EXAMINATION: ONE VIEW CHEST XR CLINICAL INDICATION: Male, 84 years old.,COUGH TECHNIQUE: Frontal chest projection is submitted. Examination is limited by patient positioning and t echnique. COMPARISON: 05/03/2024 FINDINGS: The lungs are well inflated and clear. No pneumothorax or sizable effusion. Stable cardiomegaly. 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 Left chest wall pacer place. IMPRESSION: No acute intrathoracic abnormalities. Stable cardiomegaly.
--- NOTE | 2024-10-19 12:47 | ER ---
Nurse's Notes [facility] Name: Lex Henning Age: 84 yrs Sex: Male : 1940 Arrival Date: 10/19/2024 Time: 10:44 Bed 5 Private MD: Diagnosis: Nausea with vomiting, unspecified Presentation: 10/19 10:59 Chief complaint: Patient states: nauseated since last night, no vomiting, also having iw abd pain. Coronavirus screen: At this time, the client does not indicate any symptoms associated with coronavirus-19. Ebola Screen: No symptoms or risks identified at this time. Initial Sepsis Screen: Does the patient meet any 2 criteria? No. Patient's initial sepsis screen is negative. Does the patient have a suspected source of infection? No. Patient's initial sepsis screen is negative. Risk Assessment: Do you want to hurt yourself or someone else? Patient reports no desire to harm self or others. Onset of symptoms was October 18, 2024. 10:59 Method Of Arrival: Wheelchair iw 10:59 Acuity: YOVANNY 3 iw Historical: - Allergies: 11:00 Cortisone; iw 11:00 PENICILLINS; iw - PMHx: 11:00 Arthritis; Hypertensive disorder; Hypothyroidism; diabetes mellitus; coronary iw atherosclerosis; - PSHx: 11:00 prostate sx; Cholecystectomy; cataract; pacemaker; triple bypass; watchman; Left ankle iw sx; - Immunization history:: Adult Immunizations not up to date. - Infectious Disease History:: Denies. - Social history:: Smoking status: Patient/guardian denies using tobacco, but has a distant history of tobacco abuse. - Family history:: not pertinent. Screenin:50 [facility] ED Fall Risk Assessment (Adult) History of falling in the last 3 months, ph including since admission No falls in past 3 months (0 pts) Confusion or Disorientation No (0 pts) Intoxicated or Sedated No (0 pts) Impaired Gait No (0 pts) Mobility Assist Device Used Yes (1 pt) Altered Elimination Yes (1 pt) Score/Fall Risk Level 0 - 2 = Low Risk Oriented to surroundings, Maintained a safe environment, Hourly rounding (assess needs \T\ fall precautionary measures) done. Abuse screen: Denies threats or abuse. Denies injuries from another. Nutritional screening: No deficits noted. Tuberculosis screening: No symptoms or risk factors identified. Assessment: 11:50 General: Appears in no apparent distress. Behavior is calm, cooperative. Pain: ph Complains of pain in abdomen. Neuro: Level of Consciousness is awake, alert, obeys commands, Oriented to person, place, time, situation. Cardiovascular: Capillary refill < 3 seconds in bilateral fingers Patient's skin is warm and dry. Respiratory: Airway is patent Respiratory effort is even, unlabored, Respiratory pattern is regular, symmetrical. GI: Abdomen is non-distended, Reports nausea. : No signs and/or symptoms were reported regarding the genitourinary system. Derm: Skin is pink, warm \T\ dry. 13:07 Reassessment: Patient appears in no apparent distress at this time. Patient and/or ph family updated on plan of care and expected duration. Pain level reassessed. Patient is alert, oriented x 3, equal unlabored respirations, skin warm/dry/pink. D/C pending completion of IV medications. Vital Signs: 10:59 BP 141 / 58; Pulse 66; Resp 18; Temp 98.8; Pulse Ox 95% on R/A; Weight 89.36 kg; Height iw 5 ft. 2 in. ; 13:07 BP 158 / 56; Pulse 68; Resp 18; Pulse Ox 96% on R/A; ph 10:59 Body Mass Index 36.03 (89.36 kg, 157.48 cm) iw ED Course: 10:48 Patient arrived in ED. cj3 10:51 Leandro Mendoza MD is Attending Physician. maegan 11:00 Triage completed. iw 11:01 Arm band placed on. iw 11:08 Aydee Melendez, RN is Primary Nurse. ph 11:35 Initial lab(s) drawn, by ED staff, sent to lab. Inserted saline lock: 20 gauge in left ph forearm, using aseptic technique. Blood collected. Flushed with 10 mL NS. 11:51 Patient has correct armband on for positive identification. Bed in low position. Call ph light in reach. Side rails up X 1. Pulse ox on. NIBP on. Door closed. Noise minimized. Warm blanket given. 12:00 XRAY Chest (1 view) In Process Unspecified. EDMS 13:37 No provider procedures requiring assistance completed. IV discontinued, intact, ph bleeding controlled, No redness/swelling at site. Pressure dressing applied. Administered Medications: 11:49 Drug: NS 0.9% IV 1000 ml IV at 1000 ml once; to be given as a bolus over 60 minutes ph Route: IV; Rate: 1000 ml; Site: left forearm; 13:00 Follow up: Response: No adverse reaction; IV Status: Completed infusion; IV Intake: ph 1000ml 11:49 Drug: Ondansetron IVP 8 mg IVP once; over 2 minutes Route: IVP; Site: left forearm; ph 12:00 Follow up: Response: No adverse reaction; Nausea is decreased ph 12:53 Drug: Magnesium Sulfate IVPB 1 grams IVPB once over 1 hrs Route: IVPB; Infused Over: 1 bp hrs; Site: left forearm; 13:38 Follow up: Response: No adverse reaction; IV Status: Completed infusion ph Medication: 11:51 VIS not applicable for this client. ph Intake: 13:00 IV: 1000ml; Total: 1000ml. ph Outcome: 12:46 Discharge ordered by MD. issa 13:37 Discharged to home via wheelchair, with significant other, ph 13:37 Condition: good 13:37 Discharge instructions given to patient, significant other, Instructed on discharge instructions, follow up and referral plans. medication usage, Demonstrated understanding of instructions, follow-up care, medications, Prescriptions given X 1, 13:38 Patient left the ED. ph Signatures: Dispatcher [employer] Leandro Nice MD MD cha Williams, Irene, RN Aydee Caro RN RN ph Peltier, Brian, RN RN bp Johnson, Celeste 3
--- NOTE | 2024-10-19 12:47 | EDPHYS ---
Physician Documentation [facility] Name: Lex Henning Age: 84 yrs Sex: Male : 1940 Arrival Date: 10/19/2024 Time: 10:44 Bed 5 Private MD: SOUMYA Physician Leandro Mendoza HPI: 10/19 12:41 This 84 yrs old Male presents to ER via Wheelchair with complaints of Nausea. maegan 12:41 The patient presents to the emergency department with nausea, vomiting, that is maegan intermittent. Onset: The symptoms/episode began/occurred 2 day(s) ago. Possible causes: bad food exposure, flare up of bowel problem, sick contacts. The symptoms are aggravated by nothing. The symptoms are alleviated by nothing. Associated signs and symptoms: The patient has no apparent associated signs or symptoms. Severity of symptoms: At their worst the symptoms were mild in the emergency department the symptoms are unchanged. The patient has experienced similar episodes in the past, a few times. Historical: - Allergies: 11:00 Cortisone; iw 11:00 PENICILLINS; iw - PMHx: 11:00 Arthritis; Hypertensive disorder; Hypothyroidism; diabetes mellitus; coronary iw atherosclerosis; - PSHx: 11:00 prostate sx; Cholecystectomy; cataract; pacemaker; triple bypass; watchman; Left ankle iw sx; - Immunization history:: Adult Immunizations not up to date. - Infectious Disease History:: Denies. - Social history:: Smoking status: Patient/guardian denies using tobacco, but has a distant history of tobacco abuse. - Family history:: not pertinent. ROS: 12:41 Constitutional: Negative for fever, chills, and weight loss, Eyes: Negative for injury, maegan pain, redness, and discharge, ENT: Negative for injury, pain, and discharge, Neck: Negative for injury, pain, and swelling, Cardiovascular: Negative for chest pain, palpitations, and edema, Respiratory: Negative for shortness of breath, cough, wheezing, and pleuritic chest pain, Back: Negative for injury and pain, : Negative for injury, bleeding, discharge, and swelling, MS/Extremity: Negative for injury and deformity, Skin: Negative for injury, rash, and discoloration, Neuro: Negative for headache, weakness, numbness, tingling, and seizure, Psych: Negative for depression, anxiety, suicide ideation, homicidal ideation, and hallucinations, Allergy/Immunology: Negative for hives, rash, and allergies, Endocrine: Negative for neck swelling, polydipsia, polyuria, polyphagia, and marked weight changes, Hematologic/Lymphatic: Negative for swollen nodes, abnormal bleeding, and unusual bruising, 12:41 Abdomen/GI: Positive for abdominal pain, of the epigastric area, right upper quadrant and left upper quadrant, Exam: 12:43 Constitutional: This is a well developed, well nourished patient who is awake, alert, maegan and in no acute distress. Head/Face: Normocephalic, atraumatic. Eyes: Pupils equal round and reactive to light, extra-ocular motions intact. Lids and lashes normal. Conjunctiva and sclera are non-icteric and not injected. Cornea within normal limits. Periorbital areas with no swelling, redness, or edema. ENT: Nares patent. No nasal discharge, no septal abnormalities noted. Tympanic membranes are normal and external auditory canals are clear. Oropharynx with no redness, swelling, or masses, exudates, or evidence of obstruction, uvula midline. Mucous membranes moist. Neck: Trachea midline, no thyromegaly or masses palpated, and no cervical lymphadenopathy. Supple, full range of motion without nuchal rigidity, or vertebral point tenderness. No Meningismus. Chest/axilla: Normal chest wall appearance and motion. Nontender with no deformity. No lesions are appreciated. Cardiovascular: Regular rate and rhythm with a normal S1 and S2. No gallops, murmurs, or rubs. Normal PMI, no JVD. No pulse deficits. Respiratory: Lungs have equal breath sounds bilaterally, clear to auscultation and percussion. No rales, rhonchi or wheezes noted. No increased work of breathing, no retractions or nasal flaring. Back: No spinal tenderness. No costovertebral tenderness. Full range of motion. Male : Normal genitalia with no discharge or lesions. Skin: Warm, dry with normal turgor. Normal color with no rashes, no lesions, and no evidence of cellulitis. MS/ Extremity: Pulses equal, no cyanosis. Neurovascular intact. Full, normal range of motion., bilateral aka Neuro: Awake and alert, GCS 15, oriented to person, place, time, and situation. Cranial nerves II-XII grossly intact. Motor strength 5/5 in all extremities. Sensory grossly intact. Cerebellar exam normal. Normal gait. Psych: Awake, alert, with orientation to person, place and time. Behavior, mood, and affect are within normal limits. 12:43 ECG was reviewed by the Attending Physician. 12:43 Abdomen/GI: Inspection: abdomen appears normal, Bowel sounds: normal, Palpation: nontender, Liver: no appreciated palpable abnormalities, Hernia: not appreciated, Vital Signs: 10:59 BP 141 / 58; Pulse 66; Resp 18; Temp 98.8; Pulse Ox 95% on R/A; Weight 89.36 kg; Height iw 5 ft. 2 in. ; 13:07 BP 158 / 56; Pulse 68; Resp 18; Pulse Ox 96% on R/A; ph 10:59 Body Mass Index 36.03 (89.36 kg, 157.48 cm) iw MDM: 10:53 Medical Screening Exam initiated maegan 12:44 Differential diagnosis: Nonspecific abd pain, gastritis, cholecystitis, pancreatitis, maegan appendicitis, diverticulitis, viral gastroenteritis, gastroenteritis. Data reviewed: vital signs, nurses notes, lab test result(s), EKG, radiologic studies, plain films. Consideration of Admission/Observation Escalation of care including admission/observation considered. I considered the following discharge prescriptions or medication management in the emergency department Medications were administered in the Emergency Department. See MAR. Independent interpretation of the following test(s) in the Emergency Department EKG: See my EKG interpretation above. Test considered but Not performed: Other Details no ct abd pelvis. Care significantly affected by the following chronic conditions: Diabetes, Hypertension, Obesity, oa, hypertensive. 10/19 10:52 Order name: Basic Metabolic Panel; Complete Time: 12:24 10/19 10:52 Order name: CBC with Diff; Complete Time: 12:24 10/19 10:52 Order name: LFT's; Complete Time: 12:24 10/19 10:52 Order name: Magnesium; Complete Time: 12:24 10/19 10:52 Order name: NT PRO-BNP; Complete Time: 12:24 10/19 10:52 Order name: PT-INR; Complete Time: 12:24 10/19 10:52 Order name: Troponin HS; Complete Time: 12:24 10/19 10:52 Order name: Lipase; Complete Time: 12:24 22 10:52 Order name: Urinalysis w/ reflexes 10/19 10:52 Order name: XRAY Chest (1 view); Complete Time: 12:24 [facility] 10/19 10:52 Order name: Cardiac monitoring; Complete Time: 12: [facility] 10/19 10:52 Order name: EKG - Nurse/Tech; Complete Time: 12:00 [facility] 10/19 10:52 Order name: IV Saline Lock; Complete Time: 11:49 [facility] 10/19 10:52 Order name: Labs collected and sent; Complete Time: [facility] 10/19 10:52 Order name: O2 Per Protocol; Complete Time: : [facility] 10/19 10:52 Order name: O2 Sat Monitoring; Complete Time: : [facility] EC:43 Rate is 62 beats/min. Rhythm is regular. QRS [place] is Normal. ID interval is normal. QRS maegan interval is normal. QT interval is normal. No Q waves. T waves are Normal. No ST changes noted. Clinical impression: Abnormal EKG without significant change and No evidence of ischemia. Interpreted by me. Reviewed by me. Administered Medications: 11:49 Drug: NS 0.9% IV 1000 ml IV at 1000 ml once; to be given as a bolus over 60 minutes ph Route: IV; Rate: 1000 ml; Site: left forearm; 13:00 Follow up: Response: No adverse reaction; IV Status: Completed infusion; IV Intake: ph 1000ml 11:49 Drug: Ondansetron IVP 8 mg IVP once; over 2 minutes Route: IVP; Site: left forearm; ph 12:00 Follow up: Response: No adverse reaction; Nausea is decreased ph 12:53 Drug: Magnesium Sulfate IVPB 1 grams IVPB once over 1 hrs Route: IVPB; Infused Over: 1 bp hrs; Site: left forearm; 13:38 Follow up: Response: No adverse reaction; IV Status: Completed infusion ph Disposition Summary: 10/19/24 12:46 Discharge Ordered Notes: Location: Home maegan Problem: new maegan Symptoms: have improved maegan Condition: Stable maegan Diagnosis - Nausea with vomiting, unspecified maegan Followup: maegan - With: Private Physician - When: 2 - 3 days - Reason: Recheck today's complaints, Continuance of care, Re-evaluation by your physician Discharge Instructions: - Discharge Summary Sheet maegan - Nausea and Vomiting, Adult maegan - Nausea, Adult [facility] Forms: - Medication Reconciliation Form maegan - Antibiotic Education maegan - Prescription Opioid Use maegan - Patient Portal Instructions maegan - Leadership Thank You Letter [facility] Prescriptions: - ondansetron 4 mg Oral Tablet,disintegrating - take 1 tablet ORAL route every 8 hours for 5 days prn; 20 tablet; Refills: 0, maegan Product Selection Permitted Signatures: Dispatcher [employer] EDMS Leandro Mendoza MD MD cha Williams, Irene, RN RN iw Aydee Melendez RN RN John White, RN RN bp Corrections: (The following items were deleted from the chart) 10:53 10:53 BASIC METABOLIC PANEL+C.LAB.BRZ ordered. EDMS EDMS 10:53 10:53 CBC+H.LAB.BRZ ordered. EDMS EDMS 10:53 10:53 HEPATIC FUNCTION+C.LAB.BRZ ordered. EDMS EDMS 10:53 10:53 MAGNESIUM+C.LAB.BRZ ordered. EDMS EDMS 10:53 10:53 PROBNP+C.LAB.BRZ ordered. EDMS EDMS 10:53 10:53 PROTIME (+INR)+COAG.LAB.BRZ ordered. EDMS EDMS 10:53 10:53 Troponin High Sensitivity+C.LAB.BRZ ordered. EDMS EDMS 10:53 10:53 LIPASE+C.LAB.BRZ ordered. EDMS EDMS 10:53 10:53 Urinalysis+U.LAB.BRZ ordered. EDMS EDMS 10:53 10:53 Chest Single View+RAD.RAD.BRZ ordered. EDMS EDMS
[2024-10-19] MEDS ORDERED: MAGNESIUM SULFATE 1 gm IVPB 1 GM/100 ML BAG IV ONE (12:50)
[2024-10-19 13:02] LABS: Specific Gravity 1.016 (1.005-1.030); Sqamous Epithelial <5 /HPF (None Seen); Urine Bacteria None Seen /HPF (<20); Urine Bilirubin NEGATIVE (Negative); Urine Blood Negative (Negative); Urine Clarity Clear (Clear); Urine Color Light-Yellow (Yellow); Urine Culture Reflex Order NOT NEEDED; Urine Glucose 4+ (Over) (Negative); Urine Ketones 1+ (Negative); Urine Microscopic Reflex YN ORDER UMIC; Urine Nitrite NEGATIVE (Negative); Urine Protein TRACE (Negative); Urine Urobilinogen 1+ (Normal); Urine WBC <5 /HPF (<5); Urine pH 7.5 (5.0-7.0)
[2024-10-19 13:55] VITALS: TEMP 98.8
[2024-10-19 14:01] VITALS: BP 158/56; O2SAT 96
--- NOTE | 2024-10-20 12:37 | EKG ---
Test Date: 2024-10-19 Test Time: 11:56:39 Controller [place]: PH MEASUREMENT RESULTS: Intervals: Rate: 62 [place]: QRSD: 78 QT: 440 QTc: [address] [place]: P: [place]: QRS: 58 T: -79 INTERPRETIVE STATEMENTS: Junctional rhythm with frequent ventricular-paced complexes Anterior infarct, age undetermined ST & T wave abnormality, consider inferolateral ischemia Abnormal ECG Compared to ECG 05/03/2024 13:59:59 Junctional rhythm now present Myocardial infarct finding now present ST (T wave) deviation now present Possible ischemia now present Electronically Signed On 10-20-24 12:36:18 CDT by Vikash Barclay
== END 2024-10-19 13:38 | disposition home or self-care (01) ==
LOC: ER 10:44
DX: R11.2 Nausea with vomiting, unspecified (principal); R10.13 Epigastric pain; Z95.0 Presence of cardiac pacemaker
CPT/HCPCS: 96365; 96361; 93005; 85025; 81001; 80048; 36415; 83735; 85610; 80076; 84484; 83690; 83880; 71045; 96375; 99284; J3475; J2405; J7030

== ENCOUNTER 2025-02-09 15:03 | Emergency (ER) | payer MEDICARE ==
[2025-02-09] MEDS ORDERED: HYDROCODONE/APAP 5/325 MG TAB ONE (15:48)
--- NOTE | 2025-02-09 16:29 | RAD REPORT ---
Extremity Venous Uni Ltd CLINICAL INDICATION: Male, 85 years old.PAIN RIGHT TECHNIQUE: Complete duplex sonography of the lower extremity veins was performed of the affected limb . The examination included compression for vein patency, color Doppler imaging and flow augmentation in response to distal compression of the distal external iliac, common femoral, femoral, popliteal, peroneal, tibial and great saphenous veins. [id number]. COMPARISON: No prior exams FINDINGS: Duplex sonography imaging demonstrates all deep veins examined to be fully compressible with spontane ous, phasic and augmented flow in the affected limb. IMPRESSION: No evidence of deep venous thrombosis in the right lower extremity.
--- NOTE | 2025-02-09 16:58 | RAD REPORT ---
EXAM: Lower Extremity Artery Uni Ltd HISTORY: PAIN RIGHT COMPARISON: None TECHNIQUE: Multiplanar grayscale and color Doppler images were obtained and a right lower extremity a rterial ultrasound. Spectral analysis of the Doppler waveforms were performed. FINDINGS: Right lower extremity: Common femoral artery: Biphasic Superficial femoral artery: Biphasic Popliteal artery: Biphasic Posterior tibial artery: Biphasic Dorsalis pedis artery: Monophasic IMPRESSION: Monophasic flow in the dorsalis pedis artery likely reflecting moderate to severe stenosis. The remai latisha vessels are multiphasic without flow-limiting stenoses.
--- NOTE | 2025-02-09 17:02 | RAD REPORT ---
EXAMINATION: Tib Fib Right VIEWS: Four views CLINICAL INDICATION: Male, 85 years old. PAIN COMPARISON: No prior exam. IMPRESSION: No acute fracture. No acute soft tissue abnormality. Peripheral vascular calcifications. Intramedullary olya in the distal femur.
--- NOTE | 2025-02-09 17:12 | EDPHYS ---
Physician Documentation [facility] Name: Lex Henning Age: 85 yrs Sex: Male : 1940 Arrival Date: 02/09/2025 Time: 15:03 Bed 20 Private MD: ED Physician Cm Dias HPI: 02/09 18:10 This 85 yrs old Male presents to ER via EMS with complaints of Leg Pain. kb 18:10 Pt is an 85 year old male who presents for pain to right lower leg that started a few kb weeks ago and has gotten worse. Denies injury or trauma. States the pain started after PT in [place]. . Historical: - Allergies: 15:23 Cortisone; ss 15:23 PENICILLINS; ss - PMHx: 15:23 Hypothyroidism; Hypertensive disorder; diabetes mellitus; coronary atherosclerosis; ss Arthritis; - PSHx: 15:23 cataract; Cholecystectomy; Left ankle sx; pacemaker; prostate sx; triple bypass; ss watchman; - Immunization history:: Adult Immunizations unknown. - Infectious Disease History:: Denies. - Social history:: Smoking status: unknown. ROS: 18:08 Constitutional: As per HPI kb Exam: 18:08 Constitutional: This is a well developed, well nourished patient who is awake, alert, kb and in no acute distress. Head/Face: Normocephalic, atraumatic. ENT: Moist Mucous membranes Cardiovascular: Regular rate Respiratory: Respirations even and unlabored. No increased work of breathing. Talking in full sentences Abdomen/GI: Soft, non-tender. No distention Skin: Warm, dry with normal turgor. Normal color. Neuro: Awake and alert, GCS 15, oriented to person, place, time, and situation. 18:08 Musculoskeletal/extremity: Extremities: grossly normal except: noted in the right knee and right slade: pain, tenderness, ROM: limited active range of motion due to pain, Circulation is intact in all extremities. Sensation intact. Weight bearing: is unable to bear weight, Vital Signs: 15:21 BP 91 / 76; Pulse 66; Resp 16; Pulse Ox 97% on R/A; Weight 88 kg; Height 5 ft. 2 in. ; ss Pain 10/10; 17:19 BP 94 / 74; Pulse 64; Resp 20; Temp 98; Pulse Ox 100% on R/A; kj2 15:21 Body Mass Index 35.48 (88.00 kg, 157.48 cm) ss 15:21 Pain Scale: Adult ss MDM: 15:10 Medical Screening Exam initiated kb 15:46 Data reviewed: vital signs, nurses notes. kb 18:09 Differential diagnosis: PVD, DVT, strain, fracture, neuropathy. I considered the kb following discharge prescriptions or medication management in the emergency department Pain Medications: At this time, prescription pain medications are not recommended, pt has PO dilaudid at home. Historians other than the Patient: EMS: [facility]. Spouse/Significant Other: . Counseling: I had a detailed discussion with the patient and/or guardian regarding the historical points, exam findings, and any diagnostic results supporting the discharge/admit diagnosis, radiology results, the need for outpatient follow up, a family practitioner, to return to the emergency department if symptoms worsen or persist or if there are any questions or concerns that arise at home. 02/09 15:10 Order name: US Lower Extremity Artery Uni Ltd; Complete Time: 17:03 kb 02/09 15:30 Order name: Tib Fib Right XRAY; Complete Time: 17:03 kb 02/09 16:18 Order name: Extremity Venous Uni Ltd; Complete Time: 16:31 EDMS Administered Medications: 16:05 Drug: HYDROcodone-acetaminophen PO 5 mg-325 mg 1 tabs PO once Route: PO; kj2 17:20 Follow up: Response: No adverse reaction kj2 Disposition: 18:43 I was immediately available on-site in the Emergency Department for consultation in the ms3 care of the patient. Disposition Summary: 02/09/25 17:11 Discharge Ordered Notes: Location: Home kb Condition: Stable kb Diagnosis - Pain in right lower leg kb Followup: kb - With: Emergency Department - When: As needed - Reason: Worsening of condition Followup: kb - With: Private Physician - When: 2 - 3 days - Reason: Recheck today's complaints, Continuance of care, Re-evaluation by your physician Discharge Instructions: - Discharge Summary Sheet kb - Musculoskeletal Pain kb - Peripheral Vascular Disease, [id number] kb Forms: - Medication Reconciliation Form kb - Antibiotic Education kb - Prescription Opioid Use kb - Patient Portal Instructions kb - Leadership Thank You Letter kb Signatures: Dispatcher [employer] EDMS Diamond Desouza FNP-C FNP-Eladio Alissa Bloom, RN RN ss Cm Dias, DO DO ms3 Keyonna Sánchez, RN RN kj2 Corrections: (The following items were deleted from the chart) 15:48 15:48 Extremity Venous Uni Ltd+US.RAD.BRZ ordered. EDMS EDMS 16:17 15:10 Extrmty Nonvasular Limited+US.RAD.BRZ ordered. EDMS EDMS
--- NOTE | 2025-02-09 17:12 | ER ---
Nurse's Notes [facility] Name: Lex Henning Age: 85 yrs Sex: Male : 1940 Arrival Date: 02/09/2025 Time: 15:03 Bed 20 Private MD: Diagnosis: Pain in right lower leg Presentation: 02/09 15:21 Chief complaint: Patient states: Pain to R knee that radiates down leg that has been ss ongoing for days. Coronavirus screen: Client denies travel out of the [place] in the last 14 days. Ebola Screen: Patient denies exposure to infectious person. Patient denies travel to an Ebola-affected area in the 21 days before illness onset. Initial Sepsis Screen: Does the patient meet any 2 criteria? No. Patient's initial sepsis screen is negative. Does the patient have a suspected source of infection? No. Patient's initial sepsis screen is negative. Risk Assessment: Do you want to hurt yourself or someone else? Patient reports no desire to harm self or others. Onset of symptoms is unknown. Care prior to arrival: Glucose check: 223. 15:21 Method Of Arrival: EMS: [facility] ss 15:21 Acuity: YOVANNY 3 ss Historical: - Allergies: 15:23 Cortisone; ss 15:23 PENICILLINS; ss - PMHx: 15:23 Hypothyroidism; Hypertensive disorder; diabetes mellitus; coronary atherosclerosis; ss Arthritis; - PSHx: 15:23 cataract; Cholecystectomy; Left ankle sx; pacemaker; prostate sx; triple bypass; ss watchman; - Immunization history:: Adult Immunizations unknown. - Infectious Disease History:: Denies. - Social history:: Smoking status: unknown. Screenin:[facility] ED Fall Risk Assessment (Adult) History of falling in the last 3 months, kj2 including since admission No falls in past 3 months (0 pts) Confusion or Disorientation No (0 pts) Intoxicated or Sedated No (0 pts) Impaired Gait No (0 pts) Mobility Assist Device Used Yes (1 pt) Altered Elimination No (0 pt) Score/Fall Risk Level 0 - 2 = Low Risk Maintained a safe environment, Hourly rounding (assess needs \T\ fall precautionary measures) done. Abuse screen: Denies threats or abuse. Denies injuries from another. Nutritional screening: No deficits noted. On. Tuberculosis screening: No symptoms or risk factors identified. Assessment: 15:40 General: Appears in no apparent distress. Behavior is cooperative. Pain: Complains of kj2 pain in right leg Pain currently is 8 out of 10 on a pain scale. Neuro: Level of Consciousness is awake, alert, obeys commands, Oriented to person, place, time, situation. Cardiovascular: Respiratory: Airway is patent Respiratory effort is unlabored. GI: No signs and/or symptoms were reported involving the gastrointestinal system. : No signs and/or symptoms were reported regarding the genitourinary system. 16:40 Reassessment: Patient appears in no apparent distress at this time. Patient and/or kj2 family updated on plan of care and expected duration. Pain level reassessed. Patient is alert, oriented x 3, equal unlabored respirations, skin warm/dry/pink. 17:19 Reassessment: Patient appears in no apparent distress at this time. Patient and/or kj2 family updated on plan of care and expected duration. Pain level reassessed. Patient is alert, oriented x 3, equal unlabored respirations, skin warm/dry/pink. Vital Signs: 15:21 BP 91 / 76; Pulse 66; Resp 16; Pulse Ox 97% on R/A; Weight 88 kg; Height 5 ft. 2 in. ; ss Pain 10/10; 17:19 BP 94 / 74; Pulse 64; Resp 20; Temp 98; Pulse Ox 100% on R/A; kj2 15:21 Body Mass Index 35.48 (88.00 kg, 157.48 cm) ss 15:21 Pain Scale: Adult ss ED Course: 15:03 Patient arrived in ED. bd 15:09 Diamond Desouza FNP-C is PHCP. kb 15:09 Cm Dias DO is Attending Physician. kb 15:23 Triage completed. ss 15:23 Arm band placed on right wrist. ss 15:40 Patient has correct armband on for positive identification. Bed in low position. Call kj2 light in reach. Adult w/ patient. Provided Education on: call light. 15:43 Keyonna Sácnhez, RN is Primary Nurse. kj2 16:18 US Lower Extremity Artery Uni Ltd In Process Unspecified. EDMS 16:18 Extremity Venous Uni Ltd In Process Unspecified. EDMS 16:23 Tib Fib Right XRAY In Process Unspecified. EDMS 17:20 No provider procedures requiring assistance completed. Patient did not have IV access kj2 during this emergency room visit. Administered Medications: 16:05 Drug: HYDROcodone-acetaminophen PO 5 mg-325 mg 1 tabs PO once Route: PO; kj2 17:20 Follow up: Response: No adverse reaction kj2 Medication: 17:20 VIS not applicable for this client. kj2 Outcome: 17:11 Discharge ordered by MD. xiong 17:20 Discharged to home via wheelchair, with family, kj2 17:20 Condition: stable 17:20 Instructed on discharge instructions, follow up and referral plans. 17:50 Patient left the ED. kj2 Signatures: Dispatcher [employer] EDMS Diamond Desouza, POOJA LOMAX-Vickie Rick Shelby, BREN RN Keyonna Suarez RN RN kj2
[2025-02-09 17:56] VITALS: BP 94/74; TEMP 98; O2SAT 100
== END 2025-02-09 17:50 | disposition home or self-care (01) ==
LOC: ER 15:03
DX: M79.661 Pain in right lower leg (principal); I10 Essential (primary) hypertension; E11.9 Type 2 diabetes mellitus without complications; E03.9 Hypothyroidism, unspecified; M19.90 Unspecified osteoarthritis, unspecified site; Z88.0 Allergy status to penicillin; Z88.8 Allergy status to other drugs, medicaments and biological substances
CPT/HCPCS: 93926; 93971; 99283

== ENCOUNTER 2025-03-30 15:12 | Emergency (ER) | payer MEDICARE ==
--- NOTE | 2025-03-30 17:26 | RAD REPORT ---
EXAMINATION: US RIGHT LOWER EXTREMITY VENOUS DOPPLER CLINICAL INDICATION: [facility] MAIN right calf PAIN Bed Name: IW1 Y TECHNIQUE: Complete bilateral duplex sonography of the RIGHT lower extremity veins was performed. The examination included compression for vein patency, color Doppler imaging and flow augmentation in response to distal compression of the distal external iliac, common femoral, femoral, popliteal, tibi al, and great and small saphenous veins. COMPARISON: No prior exam. FINDINGS: Duplex sonography testing of the veins of the RIGHT lower extremity was performed. Color flow imaging shows all veins to be compressible with [id number] color filling. Pulsatile and phasic flow is present within all lower extremity deep and superficial veins examined. IMPRESSION: No evidence of deep venous thrombosis.
--- NOTE | 2025-03-30 17:32 | RAD REPORT ---
EXAM: US Extremity Nonvascular Complete HISTORY: mass;Pain RIGHT COMPARISON: None TECHNIQUE: Sonographic grayscale and color flow imaging of the right calf including the region of int erest as described by the patient. FINDINGS: Heterogeneous hypoechoic deep subcutaneous soft tissue poorly defined mass or collection measuring 2. 3 x 1.0 x 1.1 cm, with adjacent edema. Mild internal vascularity IMPRESSION: Hypoechoic 2.3 cm lateral right calf deep subcutaneous soft tissue mass or collection, could represen t a reactive or inflammatory lymph nodes versus a developing phlegmon or hematoma.
--- NOTE | 2025-03-30 17:38 | EDPHYS ---
Physician Documentation [facility] Name: Lex Henning Age: 85 yrs Sex: Male : 1940 Arrival Date: 03/30/2025 Time: 15:12 Bed 20 Private MD: ED Physician Cm Dias HPI: 03/30 15:43 This 85 yrs old Male presents to ER via Wheelchair with complaints of lump to right kb calf. 15:43 Pt is an 85 year old male who presents for lump to right calf that he noticed about 2 kb weeks ago. States he was at PT and they were concerned it was a blood clot so they sent him here to rule that out. . Historical: - Allergies: 15:20 Cortisone; dd2 15:20 PENICILLINS; dd2 - PMHx: 15:20 Arthritis; coronary atherosclerosis; diabetes mellitus; Hypertensive disorder; dd2 Hypothyroidism; - PSHx: 15:20 cataract; Cholecystectomy; Left ankle sx; pacemaker; prostate sx; triple bypass; dd2 watchman; - Immunization history:: Adult Immunizations up to date. - Infectious Disease History:: Denies. - Social history:: Smoking status: Patient/guardian denies using tobacco, but has a distant history of tobacco abuse. ROS: 15:42 Constitutional: As per HPI kb Exam: 15:42 Constitutional: This is a well developed, well nourished patient who is awake, alert, kb and in no acute distress. Head/Face: Normocephalic, atraumatic. ENT: Moist Mucous membranes Respiratory: Respirations even and unlabored. No increased work of breathing. Talking in full sentences Skin: Warm, dry with normal turgor. Normal color. Neuro: Awake and alert, GCS 15, oriented to person, place, time, and situation. 15:42 Musculoskeletal/extremity: Extremities: grossly normal except: noted in the right calf: pain, ROM: intact in all extremities, Circulation is intact in all extremities. Sensation intact. Weight bearing: able to fully bear weight, Vital Signs: 15:18 BP 139 / 65; Pulse 70; Resp 16; Temp 98; Pulse Ox 95% on R/A; Pain 5/10; dd2 15:33 BP 166 / 73; Pulse 74; Resp 16; Pulse Ox 97% ; go2 17:59 BP 168 / 70; Pulse 69; Resp 20; Temp 98.7; Pulse Ox 98% ; go2 15:18 Pain Scale: Adult dd2 MDM: 15:16 Medical Screening Exam initiated kb 15:42 Differential diagnosis: cyst, malignancy, dvt, thrombosis. Data reviewed: vital signs, kb nurses notes. Historians other than the Patient: Spouse/Significant Other: . 17:37 Counseling: I had a detailed discussion with the patient and/or guardian regarding the kb historical points, exam findings, and any diagnostic results supporting the discharge/admit diagnosis, radiology results, the need for outpatient follow up, a family practitioner, to return to the emergency department if symptoms worsen or persist or if there are any questions or concerns that arise at home. 03/30 15:20 Order name: US Extremity Venous Unilateral Ltd; Complete Time: 17:28 kb 03/30 15:27 Order name: Extremity Nonvascular Complete; Complete Time: 17:33 EDMS Administered Medications: No medications were administered Disposition: 19:12 I was immediately available on-site in the Emergency Department for consultation in the ms3 care of the patient. Disposition Summary: 03/30/25 17:37 Discharge Ordered Notes: Location: Home kb Condition: Stable kb Diagnosis - Localized swelling, mass and lump, right lower limb kb Followup: kb - With: Emergency Department - When: As needed - Reason: Worsening of condition Followup: kb - With: Private Physician - When: 2 - 3 days - Reason: Recheck today's complaints, Continuance of care, Re-evaluation by your physician Forms: - Medication Reconciliation Form kb - Antibiotic Education kb - Prescription Opioid Use kb - Patient Portal Instructions kb - Leadership Thank You Letter kb Signatures: Dispatcher [employer] EDDiamond Jane, VIDEOTAPE EDITOR-C VIDEOTAPE EDITOR-Cm Desouza DO DO ms3 ROBERTO ONTIVEROS RN RN dd2 Kimberly Martins RN RN go2 Corrections: (The following items were deleted from the chart) 15:20 Extrmty Nonvasular Limited+[id number] ordered. EDMS EDMS
--- NOTE | 2025-03-30 17:38 | ER ---
Nurse's Notes [facility] Name: Lex Henning Age: 85 yrs Sex: Male : 1940 Arrival Date: 03/30/2025 Time: 15:12 Bed 20 Private MD: Diagnosis: Localized swelling, mass and lump, right lower limb Presentation: 03/30 15:18 Chief complaint: Patient states: PAINFUL KNOT ON THE BACK OF RT LEG. PT REPORTS NOTICED dd2 IT WHEN HE STARTED PHYSICAL THERAPY X 2 WEEKS AGO. Coronavirus screen: At this time, the client does not indicate any symptoms associated with coronavirus-19. Ebola Screen: No symptoms or risks identified at this time. Initial Sepsis Screen: Does the patient meet any 2 criteria? No. Patient's initial sepsis screen is negative. Does the patient have a suspected source of infection? No. Patient's initial sepsis screen is negative. Risk Assessment: Do you want to hurt yourself or someone else? Patient reports no desire to harm self or others. Onset of symptoms was March 16, 2025. 15:18 Method Of Arrival: Wheelchair dd2 15:18 Acuity: YOVANNY 3 dd2 Triage Assessment: 15:20 General: Appears in no apparent distress. uncomfortable, Behavior is calm, cooperative, dd2 appropriate for age. Pain: Complains of pain in right calf. Derm: Reports pain. Historical: - Allergies: 15:20 Cortisone; dd2 15:20 PENICILLINS; dd2 - PMHx: 15:20 Arthritis; coronary atherosclerosis; diabetes mellitus; Hypertensive disorder; dd2 Hypothyroidism; - PSHx: 15:20 cataract; Cholecystectomy; Left ankle sx; pacemaker; prostate sx; triple bypass; dd2 watchman; - Immunization history:: Adult Immunizations up to date. - Infectious Disease History:: Denies. - Social history:: Smoking status: Patient/guardian denies using tobacco, but has a distant history of tobacco abuse. Screenin:33 [facility] ED Fall Risk Assessment (Adult) History of falling in the last 3 months, go2 including since admission No falls in past 3 months (0 pts) Confusion or Disorientation No (0 pts) Intoxicated or Sedated No (0 pts) Impaired Gait No (0 pts) Mobility Assist Device Used No (0 pt) Altered Elimination No (0 pt) Score/Fall Risk Level 0 - 2 = Low Risk. Abuse screen: Denies threats or abuse. Denies injuries from another. Nutritional screening: No deficits noted. Tuberculosis screening: No symptoms or risk factors identified. Assessment: 15:31 General: Appears in no apparent distress. comfortable, well groomed, Behavior is calm, go2 cooperative, appropriate for age, Denies fever, feeling ill, fatigue, chills. Pain: Denies pain. Neuro: No deficits noted. Cardiovascular: No deficits noted. Reports None Denies chest pain, diaphoresis, fatigue, lightheadedness, nausea, palpitations, shortness of breath, syncope, vomiting. Respiratory: No deficits noted. GI: No deficits noted. No signs and/or symptoms were reported involving the gastrointestinal system. : No deficits noted. No signs and/or symptoms were reported regarding the genitourinary system. EENT: No deficits noted. No signs and/or symptoms were reported regarding the EENT system. Derm: No deficits noted. No signs and/or symptoms reported regarding the dermatologic system. Musculoskeletal: Reports knot in the back of right calf. Vital Signs: 15:18 BP 139 / 65; Pulse 70; Resp 16; Temp 98; Pulse Ox 95% on R/A; Pain 5/10; dd2 15:33 BP 166 / 73; Pulse 74; Resp 16; Pulse Ox 97% ; go2 17:59 BP 168 / 70; Pulse 69; Resp 20; Temp 98.7; Pulse Ox 98% ; go2 15:18 Pain Scale: Adult dd2 ED Course: 15:15 Patient arrived in ED. dd2 15:16 Diamond Desouza FNP-C [facility]. kb 15:16 Cm Dias DO is Attending Physician. kb 15:20 Triage completed. dd2 15:20 Arm band placed on left wrist. dd2 15:22 Kimberly Martins, BREN is Primary Nurse. go2 15:34 No provider procedures requiring assistance completed. go2 15:35 Patient has correct armband on for positive identification. Bed in low position. Call go2 light in reach. Side rails up X2. Adult w/ patient. Provided Education on: . Door closed. Warm blanket given. 16:18 US Extremity Venous Unilateral Ltd In Process Unspecified. EDMS 16:18 Extremity Nonvascular Complete In Process Unspecified. EDMS 18:00 Patient did not have IV access during this emergency room visit. go2 Administered Medications: No medications were administered Medication: 15:34 VIS not applicable for this client. go2 Outcome: 17:37 Discharge ordered by . tyrese 18:00 Discharged to home via wheelchair, go2 18:00 Condition: good 18:00 Discharge instructions given to patient, Instructed on discharge instructions, follow up and referral plans. Demonstrated understanding of instructions, follow-up care, 18:01 Patient left the ED. go2 Signatures: Dispatcher [employer] EDVT Diamond Desouza, GOLD CHARMER-C GOLD CHARMER-ROBERTO Gannon RN RN dd2 Kimberly Martins RN RN go2
[2025-03-30 18:14] VITALS: BP 168/70; TEMP 98.7; O2SAT 98
== END 2025-03-30 18:01 | disposition home or self-care (01) ==
LOC: ER 15:12
DX: R22.41 Localized swelling, mass and lump, right lower limb (principal); E11.9 Type 2 diabetes mellitus without complications; I10 Essential (primary) hypertension; E03.9 Hypothyroidism, unspecified; Z95.0 Presence of cardiac pacemaker; Z88.0 Allergy status to penicillin
CPT/HCPCS: 76881; 93971; 99283